=== PATIENT | male | born 1960 | race African-American/Black ===

== ENCOUNTER 2016-03-24 12:07 | Inpatient (IN) | payer OTHER ==
[2016-03-24 13:28] VITALS: BMI 33.0
--- NOTE | 2016-03-24 16:41 | HP ---
CIWA Score - CIWA Score Nausea/Vomitin-Mild Nausea/No Vomiting Muscle Tremors: 5 Anxiety: 4-Mod. Anxious/Guarded Agitation: 4-Moderately Restless Paroxysmal Sweats: 2 Orientation: 0-Oriented Tacttile Disturbances: 3-Moderate Itch/Numb/Burn Auditory Disturbances: 0-None Visual Disturbances: 0-None Headache: 3-Moderate CIWA-Ar Total Score: 22 Admission ROS BHS - HPI Chief Complaint: WITHDRAWAL SX Allergies/Adverse Reactions: Allergies Allergy/AdvReac Type Severity Reaction Status Date / Time No Known Allergies Allergy Verified 03/24/16 15:12 History of Present Illness: 55 YEARS OLD MALE WITH LONG HISTORY OF ALCOHOL DEPENDENCE, HAS HYPERTENSION, HYPERCHOLESTEROLEMIA, AVERAGE 4 CHEST PER YEAR SINCE 2004, ASTHMA AND COPD AND DEPRESSION, LONGEST SOBRIETY 27 MONTHS, IS ADMITTED TO DETOX Exam Limitations: No Limitations - Ebola screening Have you traveled outside of the country in the last 21 days: No Have you had contact with anyone from an Ebola affected area: No Have you been sick,other than usual withdrawal symptoms: No Do you have a fever: No - Review of Systems Constitutional: Chills, Changes in sleep, Weight Stable EENT: reports: No Symptoms Reported Respiratory: reports: SOB with Exertion, Productive cough Cardiac: reports: Chest Pain (AVERAGE 4 PER YEAR) GI: reports: Diarrhea, Nausea, Poor Fluid Intake, Indigestion, Abdominal cramping : reports: No Symptoms Reported Musculoskeletal: reports: Back Pain, Joint Pain, Muscle Pain, Neck Pain Integumentary: reports: No Symptoms Reported Neuro: reports: Weakness Endocrine: reports: No Symptoms Reported Hematology: reports: No Symptoms Reported Psychiatric: reports: Judgement Intact, Orientated x3, Depressed Other Systems: Reviewed and Negative Patient History - Patient Medical History Hx Anemia: No Hx Asthma: Yes Hx Chronic Obstructive Pulmonary Disease (COPD): Yes Hx Cancer: No Hx Cardiac Disorders: Yes (CAD with cardiac cath in 2015) Hx Congestive Heart Failure: Yes (arterial blockage) Hx Hypertension: Yes Hx Hypercholesterolemia: Yes Hx Pacemaker: No HX Cerebrovascular Accident: No Hx Seizures: No Hx Dementia: No Hx Diabetes: No Hx Gastrointestinal Disorders: No Hx Liver Disease: No Hx Genitourinary Disorders: No Hx Sexually Transmitted Disorders: No Hx Renal Disease (ESRD): No Hx Thyroid Disease: Yes (not taking meds) Hx Human Immunodeficiency Virus (HIV): No (LAST 02/10/15 NEGATIVE) Hx Hepatitis C: No Hx Depression: Yes Hx Suicide Attempt: No Hx Bipolar Disorder: No Hx Schizophrenia: No - Patient Surgical History Past Surgical History: Yes Hx Cardiac Surgery: Yes (cardiac cath in 2014) Hx Orthopedic Surgery: Yes (left TIBIA fx) Anesthesia Reaction: No - PPD History Previous Implant?: Yes Documented Results: Negative w/o proof Implanted On Prior R Admission?: Yes Date: 02/24/15 Results: 0 mm PPD to be Administered?: Yes - Smoking Cessation Smoking history: Former smoker Have you smoked in the past 12 months: No If you are a former smoker, when did you quit?: 2010 Hx Chewing Tobacco Use: No Initiated information on smoking cessation: No - Substance & Tx. History Hx Alcohol Use: Yes Hx Substance Use: Yes Substance Use Type: Alcohol, Cocaine Hx Substance Use Treatment: Yes - Substances Abused Alcohol Route: Oral Frequency: Daily Amount used: FIFTH OF VODKA Age of first use: 14 Date of Last Use: 03/24/16 Cocaine Route: Inhalation Frequency: 1-2 times per week Amount used: $40-50 Age of first use: 29 Date of Last Use: 03/22/16 Family Disease History - Family Disease History Family Disease History: Other: Father (,ALCOHOL), Mother (, ALCOHOL), Brother (deacesed,ALCOHOL) Admission Physical Exam S - Vital Signs Vital Signs: Vital Signs - 24 hr 03/24/16 13:24 Temperature 97.5 F L Pulse Rate 89 Respiratory 18 Rate Blood Pressure 158/105 - Physical General Appearance: Yes: Nourished, Appropriately Dressed, Moderate Distress, Tremorous, Irritable, Sweating, Anxious HEENTM: Yes: Hearing grossly Normal, Normal ENT Inspection, Normocephalic, Normal Voice Respiratory: Yes: Chest Non-Tender, Labored Respiration, No Respiratory Distress , No Accessory Muscle Use, Rhonchi, Wheezing, Hyperresonant Neck: Yes: Supple, Trachea in good position Breast: Yes: Breasts Symetrical Cardiology: Yes: Regular Rhythm, Regular Rate, S1, S2 Abdominal: Yes: Non Tender, Soft Genitourinary: Yes: Within Normal Limits Back: Yes: Normal Inspection Musculoskeletal: Yes: full range of Motion, Gait Steady, Back pain Extremities: Yes: Normal Inspection, Normal Range of Motion, Non-Tender, Tremors Neurological: Yes: Fully Oriented, Alert, Motor Strength 5/5, Normal Response, Depressed Affect Integumentary: Yes: Warm, Clammy Lymphatic: Yes: Within Normal Limits - Diagnostic (1) Alcohol dependence with uncomplicated withdrawal Current Visit: Yes Status: Acute (2) Asthma Current Visit: Yes Status: Acute Qualifiers: Asthma severity: mild persistent Asthma complication type: with status asthmaticus Qualified Code(s): J45.32 - Mild persistent asthma with status asthmaticus (3) COPD (chronic obstructive pulmonary disease) with emphysema Current Visit: Yes Status: Acute Qualifiers: Emphysema type: unspecified Qualified Code(s): J43.9 - Emphysema, unspecified (4) Hypercholesteremia Current Visit: Yes Status: Acute (5) Hypertension Current Visit: Yes Status: Acute Qualifiers: Hypertension type: essential hypertension Qualified Code(s): I10 - Essential (primary) hypertension (6) Depression (emotion) Current Visit: Yes Status: Suspected Qualifiers: Depression Type: dysthymia Qualified Code(s): F34.1 - Dysthymic disorder (7) H/O heart artery stent Current Visit: Yes Status: Resolved Comment: CHRONIC CHEST PAIN AVERAGE 4/YEAR Cleared for Admission [facility] - Detox or Rehab [facility] Level of Care: Medically Managed Detox Regimen/Protocol: Librium S Breath Alcohol Content Breath Alcohol Content: 0 Urine Drug Screen - Results Drug Screen Negative: No Urine Drug Screen Results: SUMAN-Cocaine, BZO-Benzodiazepines
[2016-03-24] MEDS ORDERED: ACETAMINOPHEN 325 MG TABLET (FP) PO PRN (16:47)
[2016-03-24] MEDS ORDERED: P-EPHED 60MG/TRIPROLIDI 2.5MG TABLET PO PRN (16:47)
[2016-03-24] MEDS ORDERED: LOPERAMIDE HCL 2 MG CAPSULE PO PRN (16:47)
[2016-03-24] MEDS ORDERED: diphenhydrAMINE HCL 50 MG CAPSULE PO PRN (16:47)
[2016-03-24] MEDS ORDERED: MENTHOL/PHENOL 1 EACH UD MM PRN (16:47)
[2016-03-24] MEDS ORDERED: MAG HYDROX/AL HYDROX/SIMETH 30 ML UNIT-DOSE CUP PO PRN (16:47)
[2016-03-24] MEDS ORDERED: MAGNESIUM HYDROX 2400MG/30ML ORAL SUSPENSION 30 ML CUP PO PRN (16:47)
[2016-03-24] MEDS ORDERED: chlordiazePOXIDE HCL 25 MG CAPSULE PO PRN (16:47)
[2016-03-24] MEDS ORDERED: MAGNESIUM CITRATE 300 ML BOTTLE PO PRN (16:47)
[2016-03-24] MEDS ORDERED: hydrOXYzine PAMOATE 50 MG CAPSULE (FP) PO PRN (16:47)
[2016-03-24] MEDS ORDERED: ALBUTEROL SO4 6.7 GM HFA INHALER IH PRN (16:52)
[2016-03-24] MEDS ORDERED: NITROGLYCERIN SUBLINGUAL 1/150 0.4 MG TAB SL PRN (16:57)
[2016-03-24] MEDS ORDERED: chlordiazePOXIDE HCL 25 MG CAPSULE PO ONE (17:30)
[2016-03-24] MEDS: predniSONE 20 MG TABLET (UD) PO SCH (17:56)
[2016-03-24] MEDS ORDERED: LISINOPRIL 20 MG TABLET (FP) PO ONE (19:46)
[2016-03-24] MEDS ORDERED: cloNIDine HCL 0.1 MG TABLET PO PRN (19:47)
[2016-03-24] MEDS ORDERED: cloNIDine HCL 0.1 MG TABLET ONE (19:49)
[2016-03-24 20:14] LABS: URINE APPEARANCE CLEAR; URINE BILIRUBIN NEGATIVE (NEGATIVE); URINE BLOOD NEGATIVE (NEGATIVE); URINE COLOR LTYELLOW; URINE GLUCOSE (UA) NEGATIVE (NEGATIVE); URINE KETONE NEGATIVE (NEGATIVE); URINE LEUK ESTERASE NEGATIVE (NEGATIVE); URINE NITRITE NEGATIVE (NEGATIVE); URINE PROTEIN NEGATIVE (NEGATIVE); URINE UROBILINOGEN NEGATIVE E.U./dl (0.2-1.0)
[2016-03-24] MEDS: THIAMINE HCL 100 MG TABLET (FP) PO SCH (22:21)
[2016-03-24] MEDS: BUDESONIDE/FORMETEROL FUMARATE 80/4.5 mcg INHALER IH SCH (22:21)
[2016-03-24] MEDS: chlordiazePOXIDE HCL 25 MG CAPSULE PO SCH (22:21)
[2016-03-24] MEDS: ATORVASTATIN CA 10 MG TABLET (FP) PO SCH (22:21)
[2016-03-24] MEDS: guaiFENesin/D-METHORPHAN HB 10 ML UNIT-DOSE CUPS PO PRN (22:24)
[2016-03-25] MEDS: chlordiazePOXIDE HCL 25 MG CAPSULE PO SCH ×4 (05:06→22:18)
[2016-03-25] MEDS: LISINOPRIL 20 MG TABLET (FP) PO SCH (10:27)
[2016-03-25] MEDS: amLODIPine BESYLATE 10 MG TABLET (FP) PO SCH (10:27)
[2016-03-25] MEDS: PRENATAL VITAMINS W/ FOLIC ACID TABLET (FP) PO SCH (10:27)
[2016-03-25] MEDS: ASPIRIN 81 MG CHEWABLE TABLETS PO SCH (10:27)
[2016-03-25] MEDS: BUDESONIDE/FORMETEROL FUMARATE 80/4.5 mcg INHALER IH SCH ×2 (10:28→22:20)
[2016-03-25] MEDS: predniSONE 20 MG TABLET (UD) PO SCH (10:28)
--- NOTE | 2016-03-25 10:37 | CONSULT ---
[facility] Psychiatric Consult - Data Date of interview: 03/25/16 Admission source: [facility] Identifying data: Readmission to [facility] for this 55 y/o AA male seeking detox treatment on for alcohol and cocaine dependence.Patient is single, a father of three,domiciled,unemployed and supported on SSI benefits. Substance Abuse History: - Smoking Cessation. Smoking history: Former smoker. Have you smoked in the past 12 months: No. Hx Chewing Tobacco Use: No. Initiated information on smoking cessation: No. - Substance & Tx. History. Hx Alcohol Use: Yes. Hx Substance Use: Yes. Substance Use Type: Alcohol, Cocaine. Hx Substance Use Treatment: Yes (01/01 [facility]). - Substances Abused. Alcohol. Route: Oral. Frequency: Daily. Amount used: 3PINTS OF VODKA/3 OF 12 0ZS OF BEER. Age of first use: 14. Date of Last Use: 02/21/15. Cocaine. Route: Inhalation. Frequency: 1-2 times per week. Amount used: 40$. Age of first use: 28. Date of Last Use: 02/20/15 Medical History: Significant for a history of HTN,bronchial asthma/COPD, hyperlipidemia,CAD/angioplasty with stent and thyroid disease. (not on medications). Psychiatric History: Diagnosed with MDD since 2002 ( of ).Used to be on seroquel and trazodone.Mr Heath reports previous trials with fluoxetine, bupropion and mirtazapine.He indicates that,for the time being,he is under the care of Dr Anderson at the [facility] in the [place].Maintained only on remeron (self-report).Patient denies history of suicide attempts. Physical/Sexual Abuse/Trauma History: No reported history of suicide attempts. Additional Comment: Urine Drug Screen Results: SUMAN-Cocaine, BZO- Benzodiazepines.Noted. Mental Status Exam - Mental Status Exam Alert and Oriented to: Time, Place, Person Cognitive Function: Good Patient Appearance: Well Groomed Mood: Withdrawn, Hopeful, Euthymic Affect: Appropriate, Normal Range Patient Behavior: Fatigued, Appropriate, Cooperative Speech Pattern: Clear Voice Loudness: Normal Thought Process: Goal Oriented Thought Disorder: Not Present Hallucinations: Denies Suicidal Ideation: Denies Homicidal Ideation: Denies Insight/Judgement: Poor Sleep: Fair Appetite: Good Muscle strength/Tone: Normal Gait/Station: Normal Psychiatric Findings - Problem List ([place] 1, 2,3) (1) Alcohol dependence with uncomplicated withdrawal Current Visit: Yes Status: Acute (2) Cocaine dependence Current Visit: Yes Status: Acute (3) MDD (major depressive disorder) Current Visit: Yes Status: Chronic Qualifiers: Major depression recurrence: recurrent Active/Remission status: in remission of unspecified degree Qualified Code(s): F33.40 - Major depressive disorder, recurrent, in remission, unspecified Comment: History. (4) Asthma Current Visit: Yes Status: Chronic Qualifiers: Asthma severity: mild persistent Asthma complication type: with status asthmaticus Qualified Code(s): J45.32 - Mild persistent asthma with status asthmaticus (5) COPD (chronic obstructive pulmonary disease) with emphysema Current Visit: Yes Status: Chronic Qualifiers: Emphysema type: unspecified Qualified Code(s): J43.9 - Emphysema, unspecified (6) Hypertension Current Visit: Yes Status: Chronic Qualifiers: Hypertension type: essential hypertension (7) Hypercholesteremia Current Visit: Yes Status: Chronic (8) H/O heart artery stent Current Visit: Yes Status: Resolved Comment: CHRONIC CHEST PAIN AVERAGE 4/YEAR (9) CAD (coronary artery disease) Current Visit: No Status: Chronic Qualifiers: Coronary Disease-Associated Artery/Lesion type: unspecified vessel or lesion type [place] vs. transplanted heart: [place] heart Associated angina: without angina Qualified Code(s): I25.10 - Atherosclerotic heart disease of [place] coronary artery without angina pectoris - Initial Treatment Plan Initial Treatment Plan: Psychoeducation.Detoxification.Remeron 7.5 mg po hs.Side effects/benefits discussed with patient.Patient agrees with careplan.Observation.
[2016-03-25 10:47] LABS: ALBUMIN 3.5 g/dl (3.4-5.0); ALK PHOS 141 U/L (45-117); ANION GAP 11 (8-16); BILIRUBIN,TOTAL 0.7 mg/dL (0.2-1.0); CALCIUM 8.4 mg/dL (8.5-10.1); CO2 23 mmol/L (21-32); CREATININE 1.2 mg/dL (0.7-1.3); GLUCOSE,RANDOM 124 mg/dL (74-106); SGOT/AST 19 U/L (15-37); SGPT/ALT 30 U/L (12-78); THYROID STIMULATING HORMONE 0.37 uIU/ml (0.358-3.74)
[2016-03-25] MEDS: ISOSORBIDE MONONITRATE 60 MG TAB.SR.24H (FP) PO SCH (11:00)
[2016-03-25 11:02] LABS: MCH 27.8 pg (25.7-33.7); MCHC 32.4 g/dl (32.0-35.9); MEAN CELL VOLUME 85.9 fl (80-96); PLATELET COUNT 361 K/MM3 (134-434); RDW 14.9 % (11.9-15.9); WHITE BLOOD COUNT 16.1 K/mm3 (4.0-10.0)
--- NOTE | 2016-03-25 11:04 | PN ---
BHS CIWA - CIWA Score Nausea/Vomitin-No Nausea/No Vomiting Muscle Tremors: 4-Moderate,w/Arms Extend Anxiety: 3 Agitation: 4-Moderately Restless Paroxysmal Sweats: 3 Orientation: 0-Oriented Tacttile Disturbances: 2-Mild Itch/Numbness/Burn Auditory Disturbances: 0-None Visual Disturbances: 0-None Headache: 0-None Present CIWA-Ar Total Score: 16 BHS Progress Note (SOAP) Subjective: itchiness all over my skin but no rash sweats shakes interrupted sleep Objective: 03/25/16 11:02 Vital Signs Temperature 95.9 F L 03/25/16 10:06 Pulse Rate 86 03/25/16 10:06 Respiratory Rate 20 03/25/16 10:06 Blood Pressure 158/97 03/25/16 10:07 O2 Sat by Pulse Oximetry (%) Laboratory Tests 03/24/16 03/25/16 19:53 06:00 Sodium 143 Potassium 3.8 Chloride 109 H Carbon Dioxide 23 Anion Gap 11 BUN 17 D Creatinine 1.2 D Creat Clearance w eGFR > 60 Random Glucose 124 H D Calcium 8.4 L Total Bilirubin 0.7 D AST 19 ALT 30 D Alkaline Phosphatase 141 H D Total Protein 7.0 Albumin 3.5 TSH 0.37 Urine Color Ltyellow Urine Appearance Clear Urine pH 6.0 Ur Specific [place] 1.021 Urine Protein Negative Urine Glucose (UA) Negative Urine Ketones Negative Urine Blood Negative Urine Nitrite Negative Urine Bilirubin Negative Urine Urobilinogen Negative Ur Leukocyte Esterase Negative labs pending awake/alert ambulating no acute distress Assessment: 03/25/16 11:03 withdrawal sx Plan: continue detox increase fluids Benadryl 25mg prn for itchiness labs pending
[2016-03-25] MEDS: diphenhydrAMINE HCL 25 MG CAPSULE (FP) PO PRN ×2 (12:30→22:24)
[2016-03-25] MEDS: ATORVASTATIN CA 10 MG TABLET (FP) PO SCH (22:18)
[2016-03-25] MEDS: MIRTAZAPINE 15 MG TABLET (FP) PO SCH (22:20)
[2016-03-25] MEDS: THIAMINE HCL 100 MG TABLET (FP) PO SCH (22:20)
[2016-03-26] MEDS: chlordiazePOXIDE HCL 25 MG CAPSULE PO SCH ×3 (05:19→17:38)
--- NOTE | 2016-03-26 09:40 | PN ---
S CIWA - CIWA Score Nausea/Vomitin Muscle Tremors: 3 Anxiety: 3 Agitation: 3 Paroxysmal Sweats: 1-Minimal Palms Moist Orientation: 0-Oriented Tacttile Disturbances: 1-Very Mild Itch/Numbness Auditory Disturbances: 1-Very Mild Visual Disturbances: 1-Very Mild Sensitivity Headache: 2-Mild CIWA-Ar Total Score: 18 BHS Progress Note (SOAP) Subjective: ALERT,IRRITABLE,ANXIOUS,INTERRUPTED SLEEP,TREMOR,PAIN IN THE BODY Objective: 03/26/16 09:36 Vital Signs Temperature 98.2 F 03/26/16 09:30 Pulse Rate 99 H 03/26/16 09:30 Respiratory Rate 18 03/26/16 09:30 Blood Pressure 140/92 03/26/16 09:30 O2 Sat by Pulse Oximetry (%) EKG NSR LVH PROLONG QT NO CHEST PAIN,NO SOB Laboratory Last Values WBC 16.1 K/mm3 (4.0-10.0) H D 03/25/16 06:00 RBC 4.97 M/mm3 (4.00-5.60) 03/25/16 06:00 Hgb 13.8 GM/dL (11.7-16.9) 03/25/16 06:00 Hct 42.7 % (35.4-49) 03/25/16 06:00 MCV 85.9 fl (80-96) 03/25/16 06:00 MCHC 32.4 g/dl (32.0-35.9) 03/25/16 06:00 RDW 14.9 % (11.9-15.9) 03/25/16 06:00 Plt Count 361 K/MM3 (134-434) D 03/25/16 06:00 MPV 9.0 fl (7.5-11.1) 03/25/16 06:00 Sodium 143 mmol/L (136-145) 03/25/16 06:00 Potassium 3.8 mmol/L (3.5-5.1) 03/25/16 06:00 Chloride 109 mmol/L (98-107) H 03/25/16 06:00 Carbon Dioxide 23 mmol/L (21-32) 03/25/16 06:00 Anion Gap 11 (8-16) 03/25/16 06:00 BUN 17 mg/dL (7-18) D 03/25/16 06:00 Creatinine 1.2 mg/dL (0.7-1.3) D 03/25/16 06:00 Creat Clearance w eGFR > 60 (>60) 03/25/16 06:00 Random Glucose 124 mg/dL (74-106) H D 03/25/16 06:00 Calcium 8.4 mg/dL (8.5-10.1) L 03/25/16 06:00 Total Bilirubin 0.7 mg/dL (0.2-1.0) D 03/25/16 06:00 AST 19 U/L (15-37) 03/25/16 06:00 ALT 30 U/L (12-78) D 03/25/16 06:00 Alkaline Phosphatase 141 U/L (45-117) H D 03/25/16 06:00 Total Protein 7.0 g/dl (6.4-8.2) 03/25/16 06:00 Albumin 3.5 g/dl (3.4-5.0) 03/25/16 06:00 TSH 0.37 uIU/ml (0.358-3.74) 03/25/16 06:00 Urine Color Ltyellow 03/24/16 19:53 Urine Appearance Clear 03/24/16 19:53 Urine pH 6.0 (5.0-8.0) 03/24/16 19:53 Ur Specific [place] 1.021 (1.001-1.035) 03/24/16 19:53 Urine Protein Negative (NEGATIVE) 03/24/16 19:53 Urine Glucose (UA) Negative (NEGATIVE) 03/24/16 19:53 Urine Ketones Negative (NEGATIVE) 03/24/16 19:53 Urine Blood Negative (NEGATIVE) 03/24/16 19:53 Urine Nitrite Negative (NEGATIVE) 03/24/16 19:53 Urine Bilirubin Negative (NEGATIVE) 03/24/16 19:53 Urine Urobilinogen Negative E.U./dl (0.2-1.0) 03/24/16 19:53 Ur Leukocyte Esterase Negative (NEGATIVE) 03/24/16 19:53 RPR Titer Nonreactive (NONREACTIVE) 03/25/16 06:00 Assessment: 03/26/16 09:40 WITHDRAWAL SYMPTOM Plan: CONTINUE DETOX REPEAT CBC,CMP TODAY,PENDING ON RESULT,ENCOURAGE ORAL FLUID
[2016-03-26] MEDS: amLODIPine BESYLATE 10 MG TABLET (FP) PO SCH (10:29)
[2016-03-26] MEDS: PRENATAL VITAMINS W/ FOLIC ACID TABLET (FP) PO SCH (10:29)
[2016-03-26] MEDS: predniSONE 20 MG TABLET (UD) PO SCH (10:29)
[2016-03-26] MEDS: LISINOPRIL 20 MG TABLET (FP) PO SCH (10:29)
[2016-03-26] MEDS: ASPIRIN 81 MG CHEWABLE TABLETS PO SCH (10:30)
[2016-03-26] MEDS: ISOSORBIDE MONONITRATE 60 MG TAB.SR.24H (FP) PO SCH (10:30)
[2016-03-26] MEDS: BUDESONIDE/FORMETEROL FUMARATE 80/4.5 mcg INHALER IH SCH ×2 (10:31→22:26)
[2016-03-26] MEDS: diphenhydrAMINE HCL 25 MG CAPSULE (FP) PO PRN (10:31)
--- NOTE | 2016-03-26 10:34 | EKG ---
Test Reason : Blood Pressure : / mmHG Vent. Rate : 085 BPM Atrial Rate : 085 BPM P-R Int : 128 ms QRS Dur : 100 ms QT Int : 422 ms P-R-T Axes : 055 -17 -05 degrees QTc Int : 502 ms NORMAL SINUS RHYTHM VOLTAGE CRITERIA FOR LEFT VENTRICULAR HYPERTROPHY PROLONGED QT ABNORMAL ECG WHEN COMPARED WITH ECG OF 27-JUN-2015 09:15, BORDERLINE CRITERIA FOR INFERIOR INFARCT ARE NO LONGER PRESENT Confirmed by LETICIA JACKSON, NIA ([id number]) on 03/26/2016 10:33:51 AM Referred By: Jairo Mccord Confirmed By:NIA KELLY MD
[2016-03-26 10:41] LABS: MCH 27.9 pg (25.7-33.7); MCHC 32.6 g/dl (32.0-35.9); MEAN CELL VOLUME 85.5 fl (80-96); MEAN PLT VOLUME 8.5 fl (7.5-11.1); PLATELET COUNT 324 K/MM3 (134-434); RDW 14.7 % (11.9-15.9); WHITE BLOOD COUNT 17.4 K/mm3 (4.0-10.0)
[2016-03-26 11:09] LABS: ALBUMIN 3.2 g/dl (3.4-5.0); ALK PHOS 111 U/L (45-117); ANION GAP 9 (8-16); BILIRUBIN,TOTAL 0.7 mg/dL (0.2-1.0); CALCIUM 8.4 mg/dL (8.5-10.1); CO2 24 mmol/L (21-32); GLUCOSE,RANDOM 117 mg/dL (74-106); SGOT/AST 11 U/L (15-37); SGPT/ALT 27 U/L (12-78); TOT PROT 6.2 g/dl (6.4-8.2)
[2016-03-26] MEDS: ATORVASTATIN CA 10 MG TABLET (FP) PO SCH (22:27)
[2016-03-26] MEDS: MIRTAZAPINE 15 MG TABLET (FP) PO SCH (22:27)
[2016-03-26] MEDS: THIAMINE HCL 100 MG TABLET (FP) PO SCH (22:28)
[2016-03-26] MEDS: ZOLPIDEM TARTRATE 5 MG TABLET PO PRN (22:32)
[2016-03-26] MEDS: guaiFENesin/D-METHORPHAN HB 10 ML UNIT-DOSE CUPS PO PRN (22:53)
[2016-03-26] MEDS: chlordiazePOXIDE 5 MG CAPSULE PO SCH (22:57)
[2016-03-27] MEDS: ALBUTEROL SO4 2.5/IPRATROPIUM 0.5 INH SOL 3 ML VIAL.NEB. NEB PRN ×2 (03:48→22:49)
[2016-03-27] MEDS: chlordiazePOXIDE 5 MG CAPSULE PO SCH ×3 (07:04→17:38)
[2016-03-27] MEDS: BUDESONIDE/FORMETEROL FUMARATE 80/4.5 mcg INHALER IH SCH ×2 (10:00→22:24)
[2016-03-27] MEDS: PRENATAL VITAMINS W/ FOLIC ACID TABLET (FP) PO SCH (10:23)
[2016-03-27] MEDS: ASPIRIN 81 MG CHEWABLE TABLETS PO SCH (10:23)
[2016-03-27] MEDS: ISOSORBIDE MONONITRATE 60 MG TAB.SR.24H (FP) PO SCH (10:23)
[2016-03-27] MEDS: amLODIPine BESYLATE 10 MG TABLET (FP) PO SCH (10:23)
[2016-03-27] MEDS: LISINOPRIL 20 MG TABLET (FP) PO SCH (10:23)
[2016-03-27] MEDS: diphenhydrAMINE HCL 25 MG CAPSULE (FP) PO PRN ×2 (10:24→22:27)
[2016-03-27] MEDS: predniSONE 20 MG TABLET (UD) PO SCH (10:25)
--- NOTE | 2016-03-27 10:53 | PN ---
S Progress Note (SOAP) Subjective: ALERT,COUGHING,SORE THROAT,YELLOWISH MUCOUS,INTERRUPTED SLEEP Objective: 03/27/16 10:57 03/27/16 10:58 Vital Signs Temperature 97.5 F L 03/27/16 10:08 Pulse Rate 91 H 03/27/16 10:08 Respiratory Rate 20 03/27/16 10:08 Blood Pressure 148/99 03/27/16 10:08 O2 Sat by Pulse Oximetry (%) 03/27/16 10:58 Laboratory Last Values WBC 17.4 K/mm3 (4.0-10.0) H 03/26/16 07:30 RBC 4.57 M/mm3 (4.00-5.60) 03/26/16 07:30 Hgb 12.7 GM/dL (11.7-16.9) 03/26/16 07:30 Hct 39.1 % (35.4-49) 03/26/16 07:30 MCV 85.5 fl (80-96) 03/26/16 07:30 MCHC 32.6 g/dl (32.0-35.9) 03/26/16 07:30 RDW 14.7 % (11.9-15.9) 03/26/16 07:30 Plt Count 324 K/MM3 (134-434) 03/26/16 07:30 MPV 8.5 fl (7.5-11.1) 03/26/16 07:30 Sodium 143 mmol/L (136-145) 03/26/16 07:30 Potassium 3.6 mmol/L (3.5-5.1) 03/26/16 07:30 Chloride 110 mmol/L (98-107) H 03/26/16 07:30 Carbon Dioxide 24 mmol/L (21-32) 03/26/16 07:30 Anion Gap 9 (8-16) 03/26/16 07:30 BUN 11 mg/dL (7-18) D 03/26/16 07:30 Creatinine 1.0 mg/dL (0.7-1.3) 03/26/16 07:30 Creat Clearance w eGFR > 60 (>60) 03/26/16 07:30 Random Glucose 117 mg/dL (74-106) H 03/26/16 07:30 Calcium 8.4 mg/dL (8.5-10.1) L 03/26/16 07:30 Total Bilirubin 0.7 mg/dL (0.2-1.0) 03/26/16 07:30 AST 11 U/L (15-37) L D 03/26/16 07:30 ALT 27 U/L (12-78) 03/26/16 07:30 Alkaline Phosphatase 111 U/L (45-117) D 03/26/16 07:30 Total Protein 6.2 g/dl (6.4-8.2) L 03/26/16 07:30 Albumin 3.2 g/dl (3.4-5.0) L 03/26/16 07:30 TSH 0.37 uIU/ml (0.358-3.74) 03/25/16 06:00 Urine Color Ltyellow 03/24/16 19:53 Urine Appearance Clear 03/24/16 19:53 Urine pH 6.0 (5.0-8.0) 03/24/16 19:53 Ur Specific [place] 1.021 (1.001-1.035) 03/24/16 19:53 Urine Protein Negative (NEGATIVE) 03/24/16 19:53 Urine Glucose (UA) Negative (NEGATIVE) 03/24/16 19:53 Urine Ketones Negative (NEGATIVE) 03/24/16 19:53 Urine Blood Negative (NEGATIVE) 03/24/16 19:53 Urine Nitrite Negative (NEGATIVE) 03/24/16 19:53 Urine Bilirubin Negative (NEGATIVE) 03/24/16 19:53 Urine Urobilinogen Negative E.U./dl (0.2-1.0) 03/24/16 19:53 Ur Leukocyte Esterase Negative (NEGATIVE) 03/24/16 19:53 RPR Titer Nonreactive (NONREACTIVE) 03/25/16 06:00 03/27/16 11:03 Assessment: 03/27/16 10:59 WITHDRAWAL SYMPTOM.BRONCHITIS,AMOXICILLIN 500 MGS PO Q TID FOR 10 DAYS FOR URI, BRONCHITIS, EXPLAINED TO PATIENT FOR BORDERLINE DM,PATIENT WILL GO TO HIS PMD FOR EVALUATION AND FOLLOW UP UPON DISCHARGE 03/27/16 11:03 LUNG CLEAR,NO WHEEZING Plan: CONTINUE DETOX,DISCHARGE IN AM,FOLLOW UP WITH AFTER CARE PROGRAM ARRANGEMENT AND PMD FOR MEDICAL PROBLEM
[2016-03-27] MEDS ORDERED: AMOXICILLIN 500 MG CAPSULE (FP) PO ONE (11:00)
[2016-03-27] MEDS: AMOXICILLIN 500 MG CAPSULE (FP) PO SCH ×2 (16:55→22:24)
[2016-03-27] MEDS: ZOLPIDEM TARTRATE 5 MG TABLET PO PRN (22:22)
[2016-03-27] MEDS: chlordiazePOXIDE HCL 10 MG CAPSULE PO SCH (22:22)
[2016-03-27] MEDS: THIAMINE HCL 100 MG TABLET (FP) PO SCH (22:22)
[2016-03-27] MEDS: MIRTAZAPINE 15 MG TABLET (FP) PO SCH (22:24)
[2016-03-27] MEDS: ATORVASTATIN CA 10 MG TABLET (FP) PO SCH (22:24)
[2016-03-28] MEDS: AMOXICILLIN 500 MG CAPSULE (FP) PO SCH (05:43)
[2016-03-28] MEDS: chlordiazePOXIDE HCL 10 MG CAPSULE PO SCH (05:43)
[2016-03-28 06:18] VITALS: BP 120/77; PULSE 88; TEMP 97.9
--- NOTE | 2016-05-17 20:39 | DS ---
[facility] Detox Discharge Summary Admission Date: 03/24/16 Discharge Date: 03/28/16 - History Present History: Alcohol Dependence Additional Comments: follow up with after care program as arrangement to see pmd for medical problem, continue all medications Pertinent Past History: asthma copd htn hypercholesterolemia depression cad s/p angioplasty with stent - Physical Exam Results Vital Signs: Vital Signs Temperature 97.9 F 03/28/16 06:00 Pulse Rate 88 03/28/16 06:00 Respiratory Rate 20 03/28/16 06:00 Blood Pressure 120/77 03/28/16 06:00 O2 Sat by Pulse Oximetry (%) Pertinent Admission Physical Exam Findings: withdrawal symptom - Treatment Hospital Course: Detox Protocol Followed, Detoxed Safely, Responded well, Discharged Condition Good Patient has Accepted a Rehab Referral to: declined - Medication Discharge Medications: Ambulatory Orders Simvastatin [Zocor -] 20 mg PO HS 07/31/13 Aspirin Coated [Ecotrin -] 81 mg PO DAILY tablet.ec 02/26/15 Tiotropium [place] [Spiriva] 1 inh PO DAILY #1 canister 02/26/15 Amlodipine Besylate [Norvasc -] 10 mg PO DAILY 06/24/15 Fluticasone/Salmeterol [Advair 250-50 Diskus] 1 each IH BID 06/24/15 Lisinopril [Prinivil] 20 mg PO DAILY 06/24/15 Nitroglycerin Sublingual [Nitrostat -] 0.4 mg SL PRN PRN 06/24/15 Mirtazapine [Remeron -] 15 mg PO HS #30 tablet 03/25/16 Amoxicillin - [Amoxicillin 500mg Capsule -] 500 mg PO TID #30 capsule 03/27/16 - Diagnosis (1) Alcohol dependence with uncomplicated withdrawal Status: Acute (2) Asthma Status: Chronic Qualifiers: Asthma severity: mild persistent Asthma complication type: with status asthmaticus Qualified Code(s): J45.32 - Mild persistent asthma with status asthmaticus (3) CAD (coronary artery disease) Status: Chronic Qualifiers: Coronary Disease-Associated Artery/Lesion type: unspecified vessel or lesion type [place] vs. transplanted heart: [place] heart Associated angina: without angina Qualified Code(s): I25.10 - Atherosclerotic heart disease of [place] coronary artery without angina pectoris (4) COPD (chronic obstructive pulmonary disease) with emphysema Status: Chronic Qualifiers: Emphysema type: unspecified Qualified Code(s): J43.9 - Emphysema, unspecified (5) Hypercholesteremia Status: Chronic (6) Hypertension Status: Chronic Qualifiers: Hypertension type: essential hypertension (7) MDD (major depressive disorder) Status: Chronic Qualifiers: Major depression recurrence: recurrent Active/Remission status: in remission of unspecified degree Qualified Code(s): F33.40 - Major depressive disorder, recurrent, in remission, unspecified - AMA Did Patient Leave Against Medical Advice: No
== END 2016-03-28 06:52 | disposition home or self-care (01) | DRG 774 ==
LOC: YASAS 12:07 → Y6N 15:40
PROVIDERS: ADMIT Internal Medicine Addiction Medicine; ATTEND Internal Medicine Addiction Medicine
PROC: HZ2ZZZZ Detoxification Services for Substance Abuse Treatment (ICD-10-PCS; principal; 2016-03-24)
DX: F10.230 Alcohol dependence with withdrawal, uncomplicated (principal); F14.20 Cocaine dependence, uncomplicated; F33.40 Major depressive disorder, recurrent, in remission, unspecified; J45.32 Mild persistent asthma with status asthmaticus; J43.9 Emphysema, unspecified; I10 Essential (primary) hypertension; E78.00 Pure hypercholesterolemia, unspecified; I25.10 Atherosclerotic heart disease of native coronary artery without angina pectoris; J40 Bronchitis, not specified as acute or chronic; Z95.5 Presence of coronary angioplasty implant and graft; Z87.891 Personal history of nicotine dependence
CPT/HCPCS: 36415; 80053; 81003; 84443; 85027; 86593; 93005; 93010; 94640

== ENCOUNTER 2016-11-07 12:46 | Inpatient (IN) | payer OTHER ==
[2016-11-07 13:33] VITALS: BMI 31.1
--- NOTE | 2016-11-07 14:48 | HP ---
CIWA Score - CIWA Score Nausea/Vomitin-No Nausea/No Vomiting Muscle Tremors: 4-Moderate,w/Arms Extend Anxiety: 3 Agitation: 4-Moderately Restless Paroxysmal Sweats: 3 Orientation: 0-Oriented Tacttile Disturbances: 0-None Auditory Disturbances: 0-None Visual Disturbances: 0-None Headache: 2-Mild CIWA-Ar Total Score: 16 Admission ROS BHS - HPI Chief Complaint: I am here to detox and need to stop feeling the need to drink. Allergies/Adverse Reactions: Allergies Allergy/AdvReac Type Severity Reaction Status Date / Time No Known Allergies Allergy Verified 03/24/16 15:12 History of Present Illness: Pt is a 55yr old male with a history of alcohol and benzodiazapine dependence seeking detox for treatment. Exam Limitations: No Limitations - Ebola screening Have you traveled outside of the country in the last 21 days: No Have you had contact with anyone from an Ebola affected area: No Have you been sick,other than usual withdrawal symptoms: No Do you have a fever: No - Review of Systems Constitutional: Chills, Diaphoresis, Loss of Appetite, Night Sweats, Changes in sleep EENT: reports: Tearing, Nose Congestion Respiratory: reports: Cough Cardiac: reports: No Symptoms Reported GI: reports: Diarrhea, Poor Fluid Intake : reports: No Symptoms Reported Musculoskeletal: reports: Back Pain Integumentary: reports: Flushing, Sweating Neuro: reports: Headache, Tingling, Tremors Endocrine: reports: Excessive Sweating, Flushing, Intolerance to Cold, Intolerance to Heat Hematology: reports: No Symptoms Reported Psychiatric: reports: No Sypmtoms Reported, Judgement Intact, Mood/Affect Appropiate, Orientated x3, Agitated, Anxious Other Systems: Reviewed and Negative Patient History - Patient Medical History Hx Anemia: No Hx Asthma: Yes Hx Chronic Obstructive Pulmonary Disease (COPD): Yes Hx Cancer: No Hx Cardiac Disorders: Yes (CAD with cardiac cath in 09/2016/ stents placed.) Hx Congestive Heart Failure: Yes (arterial blockage) Hx Hypertension: Yes Hx Hypercholesterolemia: Yes Hx Pacemaker: No HX Cerebrovascular Accident: No Hx Seizures: No Hx Dementia: No Hx Diabetes: No Hx Gastrointestinal Disorders: No Hx Liver Disease: No Hx Genitourinary Disorders: No Hx Sexually Transmitted Disorders: No Hx Renal Disease (ESRD): No Hx Thyroid Disease: Yes (not taking meds) Hx Human Immunodeficiency Virus (HIV): No (negative) Hx Hepatitis C: No (negative) Hx Depression: Yes Hx Suicide Attempt: No Hx Bipolar Disorder: No Hx Schizophrenia: No Other Medical History: insomnia/anxiety - Patient Surgical History Past Surgical History: Yes Hx Cardiac Surgery: Yes (cardiac cath in 2017 stents placed) Hx Orthopedic Surgery: Yes (left TIBIA fx) Anesthesia Reaction: No - PPD History Previous Implant?: No Documented Results: Negative w/proof Date: 03/26/16 Results: 0 mm PPD to be Administered?: No - Reproductive History Patient is a Female of Child Bearing Age (11 -55 yrs old): No - Smoking Cessation Smoking history: Former smoker Have you smoked in the past 12 months: No If you are a former smoker, when did you quit?: 2010 Hx Chewing Tobacco Use: No Initiated information on smoking cessation: No - Substance & Tx. History Hx Alcohol Use: Yes Hx Substance Use: Yes Substance Use Type: Alcohol, Tranquilizers Hx Substance Use Treatment: Yes - Substances Abused Alcohol Route: Oral Frequency: Daily Amount used: four fifth vodka Age of first use: 29 Date of Last Use: 11/06/16 Benzodiazepine (Klonopin) Route: Oral Frequency: 1-2 times per week Amount used: 2mg Age of first use: 54 Date of Last Use: 11/04/16 Cocaine Route: Smoking Frequency: 1-2 times per week Amount used: $50 Age of first use: 20 Date of Last Use: 11/06/16 Family Disease History - Family Disease History Family Disease History: Other: Father (,ALCOHOL), Mother (, ALCOHOL), Brother (deacesed,ALCOHOL) Admission Physical Exam [facility] - Vital Signs Vital Signs: Vital Signs - 24 hr 11/07/16 13:26 Temperature 96.9 F L Pulse Rate 74 Respiratory 18 Rate Blood Pressure 145/98 - Physical General Appearance: Yes: Appropriately Dressed, Moderate Distress, Tremorous, Irritable, Sweating, Anxious HEENTM: Yes: Hearing grossly Normal, Normal Voice Respiratory: Yes: Lungs Clear, Normal Breath Sounds, No Respiratory Distress Neck: Yes: No masses,lesions,Nodules Breast: Yes: Within Normal Limits Cardiology: Yes: Regular Rhythm, Regular Rate, S1, S2 Abdominal: Yes: Normal Bowel Sounds, Non Tender, Soft Genitourinary: Yes: Within Normal Limits Back: Yes: Normal Inspection Musculoskeletal: Yes: Gait Steady, Back pain Extremities: Yes: Normal Capillary Refill, Normal Inspection, Non-Tender, Tremors Neurological: Yes: Fully Oriented, Alert, Normal Response Integumentary: Yes: Normal Color, Diaphoresis Lymphatic: Yes: Within Normal Limits - Diagnostic (1) Alcohol dependence with uncomplicated withdrawal Current Visit: Yes Status: Chronic (2) Cocaine dependence Current Visit: Yes Status: Chronic Qualifiers: Substance use status: uncomplicated Qualified Code(s): F14.20 - Cocaine dependence, uncomplicated (3) Asthma Current Visit: Yes Status: Chronic Qualifiers: Asthma severity: mild persistent Asthma complication type: uncomplicated Qualified Code(s): J45.30 - Mild persistent asthma, uncomplicated (4) CAD (coronary artery disease) Current Visit: No Status: Chronic Qualifiers: Coronary Disease-Associated Artery/Lesion type: unspecified vessel or lesion type [place] vs. transplanted heart: [place] heart Associated angina: without angina Qualified Code(s): I25.10 - Atherosclerotic heart disease of [place] coronary artery without angina pectoris (5) COPD (chronic obstructive pulmonary disease) with emphysema Current Visit: Yes Status: Chronic Qualifiers: Emphysema type: unspecified Qualified Code(s): J43.9 - Emphysema, unspecified (6) Hypercholesteremia Current Visit: Yes Status: Chronic (7) Hypertension Current Visit: Yes Status: Chronic Qualifiers: Hypertension type: essential hypertension Cleared for Admission S - Detox or Rehab [facility] Level of Care: Medically Managed Detox Regimen/Protocol: Librium [facility] Breath Alcohol Content Breath Alcohol Content: 0 Urine Drug Screen - Results Drug Screen Negative: No Urine Drug Screen Results: SUMAN-Cocaine, BZO-Benzodiazepines
[2016-11-07] MEDS ORDERED: P-EPHED 60MG/TRIPROLIDI 2.5MG TABLET PO PRN (15:08)
[2016-11-07] MEDS ORDERED: MAG HYDROX/AL HYDROX/SIMETH 30 ML UNIT-DOSE CUP PO PRN (15:08)
[2016-11-07] MEDS ORDERED: MAGNESIUM CITRATE 300 ML BOTTLE PO PRN (15:08)
[2016-11-07] MEDS ORDERED: LOPERAMIDE HCL 2 MG CAPSULE PO PRN (15:08)
[2016-11-07] MEDS ORDERED: ACETAMINOPHEN 325 MG TABLET (FP) PO PRN (15:08)
[2016-11-07] MEDS ORDERED: diphenhydrAMINE HCL 50 MG CAPSULE PO PRN (15:08)
[2016-11-07] MEDS ORDERED: MENTHOL/PHENOL 1 EACH UD MM PRN (15:08)
[2016-11-07] MEDS ORDERED: hydrOXYzine PAMOATE 50 MG CAPSULE (FP) PO PRN (15:08)
[2016-11-07] MEDS ORDERED: chlordiazePOXIDE HCL 25 MG CAPSULE PO ONE (15:08)
[2016-11-07] MEDS ORDERED: chlordiazePOXIDE HCL 25 MG CAPSULE PO PRN (15:08)
[2016-11-07] MEDS ORDERED: MAGNESIUM HYDROX 2400MG/30ML ORAL SUSPENSION 30 ML CUP PO PRN (15:08)
[2016-11-07] MEDS ORDERED: guaiFENesin/D-METHORPHAN HB 10 ML UNIT-DOSE CUPS PO PRN (15:08)
[2016-11-07] MEDS ORDERED: NITROGLYCERIN SUBLINGUAL 1/150 0.4 MG TAB SL PRN (15:09)
[2016-11-07] MEDS: chlordiazePOXIDE HCL 25 MG CAPSULE PO SCH ×2 (18:25→22:17)
[2016-11-07] MEDS: IBUPROFEN 400 MG TABLET (FP) PO PRN (20:29)
[2016-11-07 21:14] LABS: URINE APPEARANCE CLEAR; URINE BILIRUBIN NEGATIVE (NEGATIVE); URINE BLOOD 1+ (NEGATIVE); URINE COLOR YELLOW; URINE GLUCOSE (UA) NEGATIVE (NEGATIVE); URINE KETONE NEGATIVE (NEGATIVE); URINE LEUK ESTERASE NEGATIVE (NEGATIVE); URINE NITRITE NEGATIVE (NEGATIVE); URINE PROTEIN NEGATIVE (NEGATIVE)
[2016-11-07 21:22] LABS: URINE MUCUS RARE; URINE RBC 1 /hpf (0-3); URINE WBC <1 /hpf (3-5)
[2016-11-07] MEDS: ATORVASTATIN CA 20 MG TABLET (FP) PO SCH (22:17)
[2016-11-07] MEDS: THIAMINE HCL 100 MG TABLET (FP) PO SCH (22:17)
[2016-11-08] MEDS: chlordiazePOXIDE HCL 25 MG CAPSULE PO SCH ×4 (05:24→22:27)
[2016-11-08 09:56] LABS: MCHC 31.3 g/dl (32.0-35.9); MEAN CELL VOLUME 89.5 fl (80-96); MEAN PLT VOLUME 9.4 fl (7.5-11.1); PLATELET COUNT 263 K/MM3 (134-434); RDW 14.8 % (11.9-15.9); WHITE BLOOD COUNT 11.5 K/mm3 (4.0-10.0)
[2016-11-08] MEDS ORDERED: TIOTROPIUM BROMIDE 18 MCG/INH (DEVICE W/ 5 CAPSULES) IH SCH (10:00)
--- NOTE | 2016-11-08 10:16 | PN ---
S CIWA - CIWA Score Nausea/Vomitin Muscle Tremors: 3 Anxiety: 3 Agitation: 3 Paroxysmal Sweats: 1-Minimal Palms Moist Orientation: 0-Oriented Tacttile Disturbances: 1-Very Mild Itch/Numbness Auditory Disturbances: 1-Very Mild Visual Disturbances: 1-Very Mild Sensitivity Headache: 2-Mild CIWA-Ar Total Score: 18 S Progress Note (SOAP) Subjective: ALERT,IRRITABLE,ANXIOUS,INTERRUPTED SLEEP,TREMOR Objective: 11/08/16 10:14 Vital Signs Temperature 97.7 F 11/08/16 09:25 Pulse Rate 81 11/08/16 09:25 Respiratory Rate 18 11/08/16 09:25 Blood Pressure 148/97 11/08/16 09:25 O2 Sat by Pulse Oximetry (%) EKG NSR,LVH,PROLONG QT Laboratory Last Values WBC 11.5 K/mm3 (4.0-10.0) H D 11/08/16 06:00 RBC 5.08 M/mm3 (4.00-5.60) 11/08/16 06:00 Hgb 14.2 GM/dL (11.7-16.9) D 11/08/16 06:00 Hct 45.4 % (35.4-49) D 11/08/16 06:00 MCV 89.5 fl (80-96) 11/08/16 06:00 MCH 28.0 pg (25.7-33.7) 11/08/16 06:00 MCHC 31.3 g/dl (32.0-35.9) L 11/08/16 06:00 RDW 14.8 % (11.9-15.9) 11/08/16 06:00 Plt Count 263 K/MM3 (134-434) 11/08/16 06:00 MPV 9.4 fl (7.5-11.1) D 11/08/16 06:00 Urine Color Yellow 11/07/16 20:00 Urine Appearance Clear 11/07/16 20:00 Urine pH 5.0 (5.0-8.0) 11/07/16 20:00 Ur Specific [place] 1.025 (1.005-1.025) 11/07/16 20:00 Urine Protein Negative (NEGATIVE) 11/07/16 20:00 Urine Glucose (UA) Negative (NEGATIVE) 11/07/16 20:00 Urine Ketones Negative (NEGATIVE) 11/07/16 20:00 Urine Blood 1+ (NEGATIVE) H 11/07/16 20:00 Urine Nitrite Negative (NEGATIVE) 11/07/16 20:00 Urine Bilirubin Negative (NEGATIVE) 11/07/16 20:00 Urine Urobilinogen 2.0 mg/dL (0.2-1.0) 11/07/16 20:00 Ur Leukocyte Esterase Negative (NEGATIVE) 11/07/16 20:00 Urine RBC 1 /hpf (0-3) 11/07/16 20:00 Urine WBC <1 /hpf (3-5) 11/07/16 20:00 Ur Epithelial Cells Rare /hpf (FEW) 11/07/16 20:00 Urine Mucus Rare 11/07/16 20:00 LABS PENDING Assessment: 11/08/16 10:15 WITHDRAWAL SYMPTOM Plan: CONTINUE DETOX,ENCOURAGE ORAL FLUID
[2016-11-08] MEDS: LISINOPRIL 20 MG TABLET (FP) PO SCH (10:22)
[2016-11-08] MEDS: PRENATAL VITAMINS W/ FOLIC ACID TABLET (FP) PO SCH (10:22)
[2016-11-08] MEDS: amLODIPine BESYLATE 5 MG TABLET (FP) PO SCH (10:22)
[2016-11-08] MEDS: ASPIRIN COATED 81 MG TABLET.EC PO SCH (10:23)
[2016-11-08 10:44] LABS: ALBUMIN 3.3 g/dl (3.4-5.0); ANION GAP 8 (8-16); BILIRUBIN,TOTAL 1.2 mg/dL (0.2-1.0); CALCIUM 8.7 mg/dL (8.5-10.1); CO2 25 mmol/L (21-32); CREATININE 1.3 mg/dL (0.7-1.3); GLUCOSE,RANDOM 154 mg/dL (74-106); SGOT/AST 12 U/L (15-37); SGPT/ALT 27 U/L (12-78); TOT PROT 6.5 g/dl (6.4-8.2)
[2016-11-08 10:48] LABS: ALK PHOS 118 U/L (45-117)
[2016-11-08 12:39] LABS: HIV 1 & 2 AB NEGATIVE; HIV 1 AGp24 NEGATIVE
--- NOTE | 2016-11-08 15:15 | CONSULT ---
[facility] Psychiatric Consult - Data Date of interview: 11/08/16 Admission source: [facility] Identifying data: One of multiple admissions to [facility] for this 55 y/o AA male seeking detox treatment on for alcohol and cocaine dependence.Patient is a ,a father of three,domiciled,retired from [employer] and supported on Pension benefits. Substance Abuse History: Confirmed by patient in this interview. Smoking Cessation. Smoking history: Former smoker. Have you smoked in the past 12 months: No. If you are a former smoker, when did you quit?: 2010. Hx Chewing Tobacco Use: No. Initiated information on smoking cessation: No. - Substance & Tx. History. Hx Alcohol Use: Yes. Hx Substance Use: Yes. Substance Use Type : Alcohol, Tranquilizers. Hx Substance Use Treatment: Yes. - Substances Abused. Alcohol. Route: Oral. Frequency: Daily. Amount used: four fifth vodka. Age of first use: 29. Date of Last Use: 11/06/16. Benzodiazepine ( Klonopin). Route: Oral. Frequency: 1-2 times per week. Amount used: 2mg. Age of first use: 54. Date of Last Use: 11/04/16. Cocaine. Route: Smoking. Frequency: 1-2 times per week. Amount used: $50. Age of first use: 20. Date of Last Use: 11/06/16 Medical History: Remarkable for hypertension,COPD,coronary artery disease/ angioplasty with stents,bronchial asthma,hyperlipidemia,congestive heart failure ,emphysema and thyroid disease (not on medications).Remote history of orthosurgery (fracture of left tibia). Psychiatric History: No reported history of psychiatric hospitalizations.Diagnosed with MDD in 2002 ( of ).Patient endorses a personal history of sub-optimal adherence to OPD care.He is currently maintained on a combination of remeron,klonopin and zolpidem.Mr Heath indicates that he is followed at a clinic located on [facility] in the [place].Patient denies history of suicide attempts. Physical/Sexual Abuse/Trauma History: No history of sexual abuse. Additional Comment: Urine Drug Screen Results: SUMAN-Cocaine, BZO- Benzodiazepines.Noted. Mental Status Exam - Mental Status Exam Alert and Oriented to: Time, Place, Person Cognitive Function: Good Patient Appearance: Well Groomed Mood: Hopeful, Euthymic Affect: Appropriate, Normal Range Patient Behavior: Appropriate, Cooperative Speech Pattern: Clear, Appropriate Voice Loudness: Normal Thought Process: Intact, Goal Oriented Thought Disorder: Not Present Hallucinations: Denies Suicidal Ideation: Denies Homicidal Ideation: Denies Insight/Judgement: Poor Sleep: Poorly, Difficulty falling asleep Appetite: Good Muscle strength/Tone: Normal Gait/Station: Normal Psychiatric Findings - Problem List ([place] 1, 2,3) (1) Alcohol dependence with uncomplicated withdrawal Current Visit: Yes Status: Acute (2) Cocaine dependence Current Visit: Yes Status: Acute Qualifiers: Substance use status: uncomplicated Qualified Code(s): F14.20 - Cocaine dependence, uncomplicated (3) Substance induced mood disorder Current Visit: Yes Status: Acute (4) Mood disorder Current Visit: Yes Status: Chronic (5) Asthma Current Visit: Yes Status: Chronic Qualifiers: Asthma severity: mild persistent Asthma complication type: uncomplicated Qualified Code(s): J45.30 - Mild persistent asthma, uncomplicated (6) Hypercholesteremia Current Visit: Yes Status: Chronic (7) Hypertension Current Visit: Yes Status: Chronic Qualifiers: Hypertension type: essential hypertension (8) CAD (coronary artery disease) Current Visit: No Status: Chronic Qualifiers: Coronary Disease-Associated Artery/Lesion type: unspecified vessel or lesion type [place] vs. transplanted heart: [place] heart Associated angina: without angina Qualified Code(s): I25.10 - Atherosclerotic heart disease of [place] coronary artery without angina pectoris (9) Insomnia Current Visit: Yes Status: Acute - Initial Treatment Plan Initial Treatment Plan: Psychoeducation.Detoxification.Medications : remeron 30 mg po hs + ambien 10 mg po hs prn.Side effects/benefits of both drugs are discussed with the patient.He is in agreement with this careplan.Medications verified with pharmacist at [facility] [phone] (scripts dated 10/04/16 for remeron 45 mg/hs for 30 days).Observation.
[2016-11-08] MEDS: MIRTAZAPINE 30 MG TABLET (FP) PO SCH (22:27)
[2016-11-08] MEDS: THIAMINE HCL 100 MG TABLET (FP) PO SCH (22:27)
[2016-11-08] MEDS: ATORVASTATIN CA 20 MG TABLET (FP) PO SCH (22:27)
[2016-11-08] MEDS: ACLIDINIUM BROMIDE 400 MCG/INH AERO.POWD IH SCH (22:28)
[2016-11-08] MEDS: ZOLPIDEM TARTRATE 5 MG TABLET PO PRN (22:29)
[2016-11-09] MEDS: chlordiazePOXIDE HCL 25 MG CAPSULE PO SCH ×2 (05:50→10:39)
[2016-11-09] MEDS: ASPIRIN COATED 81 MG TABLET.EC PO SCH (10:39)
[2016-11-09] MEDS: PRENATAL VITAMINS W/ FOLIC ACID TABLET (FP) PO SCH (10:39)
[2016-11-09] MEDS: amLODIPine BESYLATE 5 MG TABLET (FP) PO SCH (10:39)
[2016-11-09] MEDS: LISINOPRIL 20 MG TABLET (FP) PO SCH (10:39)
[2016-11-09] MEDS: ACLIDINIUM BROMIDE 400 MCG/INH AERO.POWD IH SCH ×2 (10:40→22:35)
--- NOTE | 2016-11-09 12:08 | PN ---
S CIWA - CIWA Score Nausea/Vomitin Muscle Tremors: 3 Anxiety: 3 Agitation: 2 Paroxysmal Sweats: 1-Minimal Palms Moist Orientation: 0-Oriented Tacttile Disturbances: 1-Very Mild Itch/Numbness Auditory Disturbances: 1-Very Mild Visual Disturbances: 1-Very Mild Sensitivity Headache: 2-Mild CIWA-Ar Total Score: 17 BHS Progress Note (SOAP) Subjective: ALERT,IRRITABLE,ANXIOUS,INTERRUPTED SLEEP,TREMOR,ITCHING Objective: 11/09/16 12:06 Vital Signs Temperature 98.2 F 11/09/16 09:51 Pulse Rate 85 11/09/16 09:51 Respiratory Rate 20 11/09/16 09:51 Blood Pressure 135/92 11/09/16 09:51 O2 Sat by Pulse Oximetry (%) 11/09/16 12:06 Laboratory Last Values WBC 11.5 K/mm3 (4.0-10.0) H D 11/08/16 06:00 RBC 5.08 M/mm3 (4.00-5.60) 11/08/16 06:00 Hgb 14.2 GM/dL (11.7-16.9) D 11/08/16 06:00 Hct 45.4 % (35.4-49) D 11/08/16 06:00 MCV 89.5 fl (80-96) 11/08/16 06:00 MCH 28.0 pg (25.7-33.7) 11/08/16 06:00 MCHC 31.3 g/dl (32.0-35.9) L 11/08/16 06:00 RDW 14.8 % (11.9-15.9) 11/08/16 06:00 Plt Count 263 K/MM3 (134-434) 11/08/16 06:00 MPV 9.4 fl (7.5-11.1) D 11/08/16 06:00 Sodium 141 mmol/L (136-145) 11/08/16 06:00 Potassium 4.0 mmol/L (3.5-5.1) 11/08/16 06:00 Chloride 108 mmol/L (98-107) H 11/08/16 06:00 Carbon Dioxide 25 mmol/L (21-32) 11/08/16 06:00 Anion Gap 8 (8-16) 11/08/16 06:00 BUN 17 mg/dL (7-18) D 11/08/16 06:00 Creatinine 1.3 mg/dL (0.7-1.3) D 11/08/16 06:00 Creat Clearance w eGFR 57.31 (>60) 11/08/16 06:00 Random Glucose 154 mg/dL (74-106) H D 11/08/16 06:00 Calcium 8.7 mg/dL (8.5-10.1) 11/08/16 06:00 Total Bilirubin 1.2 mg/dL (0.2-1.0) H D 11/08/16 06:00 AST 12 U/L (15-37) L 11/08/16 06:00 ALT 27 U/L (12-78) 11/08/16 06:00 Alkaline Phosphatase 118 U/L (45-117) H 11/08/16 06:00 Total Protein 6.5 g/dl (6.4-8.2) 11/08/16 06:00 Albumin 3.3 g/dl (3.4-5.0) L 11/08/16 06:00 Urine Color Yellow 11/07/16 20:00 Urine Appearance Clear 11/07/16 20:00 Urine pH 5.0 (5.0-8.0) 11/07/16 20:00 Ur Specific [place] 1.025 (1.005-1.025) 11/07/16 20:00 Urine Protein Negative (NEGATIVE) 11/07/16 20:00 Urine Glucose (UA) Negative (NEGATIVE) 11/07/16 20:00 Urine Ketones Negative (NEGATIVE) 11/07/16 20:00 Urine Blood 1+ (NEGATIVE) H 11/07/16 20:00 Urine Nitrite Negative (NEGATIVE) 11/07/16 20:00 Urine Bilirubin Negative (NEGATIVE) 11/07/16 20:00 Urine Urobilinogen 2.0 mg/dL (0.2-1.0) 11/07/16 20:00 Ur Leukocyte Esterase Negative (NEGATIVE) 11/07/16 20:00 Urine RBC 1 /hpf (0-3) 11/07/16 20:00 Urine WBC <1 /hpf (3-5) 11/07/16 20:00 Ur Epithelial Cells Rare /hpf (FEW) 11/07/16 20:00 Urine Mucus Rare 11/07/16 20:00 HIV 1&2 Antibody Screen Negative 11/07/16 06:00 HIV P24 Antigen Negative 11/07/16 06:00 Assessment: 11/09/16 12:07 WITHDRAWAL SYMPTOM Plan: CONTINUE DETOX,ENCOURAGE ORAL FLUID,BENADRYL 25 PNG PO Q 6 HRS PRN FOR ITCHING
[2016-11-09] MEDS: diphenhydrAMINE HCL 25 MG CAPSULE (FP) PO PRN (12:21)
--- NOTE | 2016-11-09 12:57 | EKG ---
Test Reason : Blood Pressure : / mmHG Vent. Rate : 078 BPM Atrial Rate : 078 BPM P-R Int : 142 ms QRS Dur : 096 ms QT Int : 448 ms P-R-T Axes : 062 -07 013 degrees QTc Int : 510 ms NORMAL SINUS RHYTHM WITH SINUS ARRHYTHMIA MINIMAL VOLTAGE CRITERIA FOR LVH, MAY BE NORMAL VARIANT PROLONGED QT ABNORMAL ECG WHEN COMPARED WITH ECG OF 07-NOV-2016 17:30, SINUS RHYTHM HAS REPLACED ECTOPIC ATRIAL RHYTHM NON-SPECIFIC CHANGE IN ST SEGMENT IN INFERIOR LEADS Confirmed by BERHANE JACKSON, JAKI ([id number]) on 11/09/2016 12:56:46 PM Referred By: Confirmed By:JAKI LAST MD
[2016-11-09] MEDS: chlordiazePOXIDE 5 MG CAPSULE PO SCH ×2 (17:56→22:36)
[2016-11-09] MEDS: THIAMINE HCL 100 MG TABLET (FP) PO SCH (22:35)
[2016-11-09] MEDS: MIRTAZAPINE 30 MG TABLET (FP) PO SCH (22:36)
[2016-11-09] MEDS: ATORVASTATIN CA 20 MG TABLET (FP) PO SCH (22:36)
[2016-11-09] MEDS: ZOLPIDEM TARTRATE 5 MG TABLET PO PRN (22:36)
[2016-11-10] MEDS: chlordiazePOXIDE 5 MG CAPSULE PO SCH ×2 (06:01→10:45)
[2016-11-10] MEDS: diphenhydrAMINE HCL 25 MG CAPSULE (FP) PO PRN (06:06)
--- NOTE | 2016-11-10 10:30 | PN ---
S Progress Note (SOAP) Subjective: ALERT,IRRITABLE,ANXIOUS,INTERRUPTED SLEEP Objective: 11/10/16 10:28 Vital Signs Temperature 97.9 F 11/10/16 09:49 Pulse Rate 86 11/10/16 09:49 Respiratory Rate 20 11/10/16 09:49 Blood Pressure 156/106 11/10/16 09:49 O2 Sat by Pulse Oximetry (%) FASTING BLOOD GLUCOSE PENDING Assessment: 11/10/16 10:29 WITHDRAWAL SYMPTOM Plan: CONTINUE DETOX,BGM MONITORING,DISCHARGE IN AM
[2016-11-10] MEDS: ACLIDINIUM BROMIDE 400 MCG/INH AERO.POWD IH SCH ×2 (10:44→22:28)
[2016-11-10] MEDS: ASPIRIN COATED 81 MG TABLET.EC PO SCH (10:45)
[2016-11-10] MEDS: PRENATAL VITAMINS W/ FOLIC ACID TABLET (FP) PO SCH (10:45)
[2016-11-10] MEDS: amLODIPine BESYLATE 5 MG TABLET (FP) PO SCH (10:45)
[2016-11-10] MEDS: LISINOPRIL 20 MG TABLET (FP) PO SCH (10:45)
[2016-11-10] MEDS: chlordiazePOXIDE HCL 10 MG CAPSULE PO SCH ×2 (17:14→22:28)
[2016-11-10] MEDS: ZOLPIDEM TARTRATE 5 MG TABLET PO PRN (22:28)
[2016-11-10] MEDS: THIAMINE HCL 100 MG TABLET (FP) PO SCH (22:28)
[2016-11-10] MEDS: MIRTAZAPINE 30 MG TABLET (FP) PO SCH (22:28)
[2016-11-10] MEDS: ATORVASTATIN CA 20 MG TABLET (FP) PO SCH (22:28)
[2016-11-11] MEDS: IBUPROFEN 400 MG TABLET (FP) PO PRN (03:28)
[2016-11-11] MEDS ORDERED: diphenhydrAMINE HCL 25 MG CAPSULE (FP) PO ONE (04:48)
[2016-11-11] MEDS: chlordiazePOXIDE HCL 10 MG CAPSULE PO SCH (05:12)
[2016-11-11] MEDS ORDERED: LISINOPRIL 20 MG TABLET (FP) PO SCH (06:00)
[2016-11-11] MEDS ORDERED: amLODIPine BESYLATE 5 MG TABLET (FP) PO SCH (06:00)
--- NOTE | 2016-11-11 08:59 | DS ---
[facility] Detox Discharge Summary Admission Date: 11/07/16 Discharge Date: 11/11/16 - History Present History: Alcohol Dependence, Cocaine Dependence - Physical Exam Results Vital Signs: Vital Signs Temperature 98.3 F 11/11/16 06:31 Pulse Rate 85 11/11/16 06:31 Respiratory Rate 18 11/11/16 06:31 Blood Pressure 132/62 11/11/16 06:31 O2 Sat by Pulse Oximetry (%) - Treatment Hospital Course: Detox Protocol Followed, Detoxed Safely, Responded well, Discharged Condition Good, Rehab Referral Accepted - Medication Discharge Medications: Ambulatory Orders Simvastatin [Zocor -] 20 mg PO HS 07/31/13 Aspirin Coated [Ecotrin -] 81 mg PO DAILY tablet.ec 02/26/15 Tiotropium [place] [Spiriva] 1 inh PO DAILY #1 canister 02/26/15 Amlodipine Besylate [Norvasc -] 10 mg PO DAILY 06/24/15 Fluticasone/Salmeterol [Advair 250-50 Diskus] 1 each IH BID 06/24/15 Lisinopril [Prinivil] 20 mg PO DAILY 06/24/15 Nitroglycerin Sublingual [Nitrostat -] 0.4 mg SL PRN PRN 06/24/15 Mirtazapine [Remeron -] 30 mg PO DAILY #30 tablet 11/08/16 - Diagnosis (1) Alcohol dependence with uncomplicated withdrawal Current Visit: Yes Status: Chronic (2) Cocaine dependence Current Visit: Yes Status: Chronic Qualifiers: Substance use status: uncomplicated Qualified Code(s): F14.20 - Cocaine dependence, uncomplicated (3) Asthma Current Visit: Yes Status: Chronic Qualifiers: Asthma severity: mild persistent Asthma complication type: uncomplicated Qualified Code(s): J45.30 - Mild persistent asthma, uncomplicated (4) CAD (coronary artery disease) Current Visit: No Status: Chronic Qualifiers: Coronary Disease-Associated Artery/Lesion type: unspecified vessel or lesion type [place] vs. transplanted heart: [place] heart Associated angina: without angina Qualified Code(s): I25.10 - Atherosclerotic heart disease of [place] coronary artery without angina pectoris (5) COPD (chronic obstructive pulmonary disease) with emphysema Current Visit: Yes Status: Chronic Qualifiers: Emphysema type: unspecified Qualified Code(s): J43.9 - Emphysema, unspecified (6) Hypercholesteremia Current Visit: Yes Status: Chronic (7) Hypertension Current Visit: Yes Status: Chronic Qualifiers: Hypertension type: essential hypertension - AMA Did Patient Leave Against Medical Advice: No (f/u with [facility])
[2016-11-11 10:35] VITALS: BP 138/79; PULSE 95; TEMP 97.9
--- NOTE | 2016-11-11 16:17 | EKG ---
Test Reason : Blood Pressure : / mmHG Vent. Rate : 075 BPM Atrial Rate : 075 BPM P-R Int : 112 ms QRS Dur : 100 ms QT Int : 448 ms P-R-T Axes : 237 008 059 degrees QTc Int : 500 ms UNUSUAL P AXIS, POSSIBLE ECTOPIC ATRIAL RHYTHM LEFT VENTRICULAR HYPERTROPHY WITH REPOLARIZATION ABNORMALITY PROLONGED QT ABNORMAL ECG Confirmed by MD REBECA, ATIF ([id number]) on 11/11/2016 4:17:22 PM Referred By: Confirmed By:ATIF JOSE MD
== END 2016-11-11 09:52 | disposition home or self-care (01) | DRG 774 ==
LOC: YASAS 12:46 → Y6N 17:32
PROVIDERS: ADMIT Internal Medicine; ATTEND Internal Medicine
PROC: HZ2ZZZZ Detoxification Services for Substance Abuse Treatment (ICD-10-PCS; principal; 2016-11-11)
DX: F10.230 Alcohol dependence with withdrawal, uncomplicated (principal); F14.20 Cocaine dependence, uncomplicated; F39 Unspecified mood [affective] disorder; F19.24 Other psychoactive substance dependence with psychoactive substance-induced mood disorder; G47.00 Insomnia, unspecified; I25.10 Atherosclerotic heart disease of native coronary artery without angina pectoris; I10 Essential (primary) hypertension; Z95.5 Presence of coronary angioplasty implant and graft; E78.00 Pure hypercholesterolemia, unspecified; J43.9 Emphysema, unspecified; J45.30 Mild persistent asthma, uncomplicated
CPT/HCPCS: 36415; 80053; 81003; 81015; 82947; 85027; 86593; 87389; 93005; 93010

== ENCOUNTER 2018-03-27 11:49 | Inpatient (IN) | payer OTHER ==
[2018-03-27 12:11] VITALS: BMI 31.0
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
[2018-03-27] MEDS ORDERED: MAGNESIUM CITRATE 300 ML BOTTLE PO PRN (13:04)
[2018-03-27] MEDS ORDERED: MAG HYDROX/AL HYDROX/SIMETH 30 ML UNIT-DOSE CUP PO PRN (13:04)
[2018-03-27] MEDS ORDERED: P-EPHED 60MG/TRIPROLIDI 2.5MG TABLET PO PRN (13:04)
[2018-03-27] MEDS ORDERED: ACETAMINOPHEN 325 MG TABLET (FP) PO PRN (13:04)
[2018-03-27] MEDS ORDERED: chlordiazePOXIDE HCL 25 MG CAPSULE PO PRN (13:04)
[2018-03-27] MEDS ORDERED: IBUPROFEN 400 MG TABLET (FP) PO PRN (13:04)
[2018-03-27] MEDS ORDERED: MAGNESIUM HYDROX 2400MG/30ML ORAL SUSPENSION 30 ML CUP PO PRN (13:04)
[2018-03-27] MEDS ORDERED: NITROGLYCERIN SUBLINGUAL 1/150 0.4 MG TAB SL PRN (13:05)
[2018-03-27] MEDS ORDERED: ALBUTEROL SO4 8 GM HFA INHALER IH PRN (13:05)
[2018-03-27] MEDS ORDERED: ALBUTEROL SO4 0.083% IH SOL 2.5 MG/3 ML VIAL.NEB. NEB PRN (13:06)
[2018-03-27] MEDS ORDERED: HYDROCHLOROTHIAZIDE 25 MG TABLET (FP) PO SCH (14:30)
[2018-03-27] MEDS: LISINOPRIL 20 MG TABLET (FP) PO SCH (15:49)
[2018-03-27] MEDS: amLODIPine BESYLATE 10 MG TABLET (FP) PO SCH (15:50)
[2018-03-27] MEDS: ASPIRIN COATED 81 MG TABLET.EC PO SCH (15:50)
[2018-03-27] MEDS: chlordiazePOXIDE HCL 25 MG CAPSULE PO SCH ×2 (16:52→22:09)
[2018-03-27] MEDS: MENTHOL/PHENOL 1 EACH UD MM PRN (19:11)
[2018-03-27] MEDS ORDERED: [UNRECOGNIZED DRUG - OTHER] PO SCH (22:00)
[2018-03-27] MEDS ORDERED: MELATONIN 5 MG TABLETS PO PRN (22:00)
[2018-03-27] MEDS ORDERED: hydrALAZINE HCL 25 MG TABLET (FP) PO SCH (22:00)
[2018-03-27] MEDS: hydrALAZINE HCL 10 MG TABLET PO SCH (22:07)
[2018-03-27] MEDS: MIRTAZAPINE 30 MG TABLET (FP) PO SCH (22:07)
[2018-03-27] MEDS: ATORVASTATIN CA 80 MG TABLET (FP) PO SCH (22:07)
[2018-03-27] MEDS: ISOSORBIDE DINITRATE 10 MG TABLET (FP) PO SCH (22:08)
[2018-03-27] MEDS: BUDESONIDE/FORMETEROL FUMARATE 80/4.5 mcg INHALER IH SCH (22:09)
[2018-03-27] MEDS: THIAMINE HCL 100 MG TABLET (FP) PO SCH (22:09)
[2018-03-28] MEDS: MENTHOL/PHENOL 1 EACH UD MM PRN ×3 (01:32→17:18)
[2018-03-28] MEDS: chlordiazePOXIDE HCL 25 MG CAPSULE PO SCH ×4 (05:32→22:10)
--- NOTE | 2018-03-28 09:50 | PN ---
[facility] CIWA - CIWA Score Nausea/Vomitin-Mild Nausea/No Vomiting Muscle Tremors: 3 Anxiety: 2 Agitation: 2 Paroxysmal Sweats: 1-Minimal Palms Moist Orientation: 1-Uncertain about Date Tacttile Disturbances: 0-None Auditory Disturbances: 0-None Visual Disturbances: 0-None Headache: 2-Mild CIWA-Ar Total Score: 12 S Progress Note (SOAP) Subjective: bp 100/69 discontinue HCTZ at this time continue pb monitoring tremor sweat mild gi distress anxiety Objective: 03/28/18 14:35 Vital Signs Temperature 96.8 F L 03/28/18 13:11 Pulse Rate 82 03/28/18 13:11 Respiratory Rate 18 03/28/18 13:11 Blood Pressure 119/71 03/28/18 13:11 O2 Sat by Pulse Oximetry (%) Laboratory Last Values WBC 13.2 K/mm3 (4.0-10.0) H 03/28/18 05:45 RBC 5.28 M/mm3 (4.00-5.60) 03/28/18 05:45 Hgb 14.4 GM/dL (11.7-16.9) 03/28/18 05:45 Hct 46.5 % (35.4-49) 03/28/18 05:45 MCV 87.9 fl (80-96) 03/28/18 05:45 MCH 27.3 pg (25.7-33.7) 03/28/18 05:45 MCHC 31.0 g/dl (32.0-35.9) L 03/28/18 05:45 RDW 14.7 % (11.9-15.9) 03/28/18 05:45 Plt Count 356 K/MM3 (134-434) 03/28/18 05:45 MPV 9.8 fl (7.5-11.1) 03/28/18 05:45 Sodium 140 mmol/L (136-145) 03/28/18 05:45 Potassium 4.8 mmol/L (3.5-5.1) 03/28/18 05:45 Chloride 108 mmol/L (98-107) H 03/28/18 05:45 Carbon Dioxide 24 mmol/L (21-32) 03/28/18 05:45 Anion Gap 8 MMOL/L (8-16) 03/28/18 05:45 BUN 12 mg/dL (7-18) 03/28/18 05:45 Creatinine 1.2 mg/dL (0.55-1.3) 03/28/18 05:45 Creat Clearance w eGFR > 60 (>60) 03/28/18 05:45 Random Glucose 108 mg/dL (74-106) H 03/28/18 05:45 Calcium 8.5 mg/dL (8.5-10.1) 03/28/18 05:45 Total Bilirubin 1.4 mg/dL (0.2-1) H 03/28/18 05:45 AST 17 U/L (15-37) 03/28/18 05:45 ALT 30 U/L (13-61) 03/28/18 05:45 Alkaline Phosphatase 128 U/L (45-117) H 03/28/18 05:45 Total Protein 6.8 g/dl (6.4-8.2) 03/28/18 05:45 Albumin 3.5 g/dl (3.4-5.0) 03/28/18 05:45 RPR Titer Nonreactive (NONREACTIVE) 03/28/18 05:45 HIV 1&2 Antibody Screen Negative 03/27/18 13:20 HIV P24 Antigen Negative 03/27/18 13:20 lab noted Assessment: 03/28/18 14:36 withdrawal sx Plan: continue detpx
[2018-03-28 10:21] LABS: HEMATOCRIT 46.5 % (35.4-49); HEMOGLOBIN 14.4 GM/dL (11.7-16.9); MCH 27.3 pg (25.7-33.7); MEAN CELL VOLUME 87.9 fl (80-96); MEAN PLT VOLUME 9.8 fl (7.5-11.1); PLATELET COUNT 356 K/MM3 (134-434); RBC 5.28 M/mm3 (4.00-5.60); RDW 14.7 % (11.9-15.9); WHITE BLOOD COUNT 13.2 K/mm3 (4.0-10.0)
[2018-03-28] MEDS: PRENATAL VITAMINS W/ FOLIC ACID TABLET (FP) PO SCH (10:24)
[2018-03-28] MEDS: amLODIPine BESYLATE 10 MG TABLET (FP) PO SCH (10:24)
[2018-03-28] MEDS: LISINOPRIL 20 MG TABLET (FP) PO SCH (10:25)
[2018-03-28] MEDS: BUDESONIDE/FORMETEROL FUMARATE 80/4.5 mcg INHALER IH SCH ×2 (10:25→22:11)
[2018-03-28] MEDS: TIOTROPIUM BROMIDE 2.5 MCG (SPIRIVA) RESPIMAT INHALER IH SCH (10:27)
[2018-03-28] MEDS: ASPIRIN COATED 81 MG TABLET.EC PO SCH (10:28)
[2018-03-28] MEDS: ISOSORBIDE DINITRATE 10 MG TABLET (FP) PO SCH ×2 (10:28→22:10)
[2018-03-28] MEDS: hydrALAZINE HCL 10 MG TABLET PO SCH ×2 (10:35→22:10)
[2018-03-28 10:40] LABS: ALBUMIN 3.5 g/dl (3.4-5.0); ALK PHOS 128 U/L (45-117); ANION GAP 8 MMOL/L (8-16); BILIRUBIN,TOTAL 1.4 mg/dL (0.2-1); BLOOD UREA NITROGEN 12 mg/dL (7-18); CALCIUM 8.5 mg/dL (8.5-10.1); CHLORIDE 108 mmol/L (98-107); CO2 24 mmol/L (21-32); CREATININE 1.2 mg/dL (0.55-1.3); GLUCOSE,RANDOM 108 mg/dL (74-106); POTASSIUM 4.8 mmol/L (3.5-5.1); SGOT/AST 17 U/L (15-37); SGPT/ALT 30 U/L (13-61); SODIUM 140 mmol/L (136-145); TOT PROT 6.8 g/dl (6.4-8.2)
[2018-03-28] MEDS: guaiFENesin/D-METHORPHAN HB 10 ML UNIT-DOSE CUPS PO PRN (17:32)
[2018-03-28] MEDS: THIAMINE HCL 100 MG TABLET (FP) PO SCH (22:10)
[2018-03-28] MEDS: ATORVASTATIN CA 80 MG TABLET (FP) PO SCH (22:10)
[2018-03-28] MEDS: MIRTAZAPINE 30 MG TABLET (FP) PO SCH (22:10)
[2018-03-29] MEDS: MENTHOL/PHENOL 1 EACH UD MM PRN ×5 (00:47→21:12)
[2018-03-29] MEDS: chlordiazePOXIDE HCL 25 MG CAPSULE PO SCH ×2 (06:11→10:19)
[2018-03-29] MEDS: LISINOPRIL 20 MG TABLET (FP) PO SCH (10:19)
[2018-03-29] MEDS: BUDESONIDE/FORMETEROL FUMARATE 80/4.5 mcg INHALER IH SCH ×2 (10:19→21:42)
[2018-03-29] MEDS: amLODIPine BESYLATE 10 MG TABLET (FP) PO SCH (10:19)
[2018-03-29] MEDS: PRENATAL VITAMINS W/ FOLIC ACID TABLET (FP) PO SCH (10:19)
[2018-03-29] MEDS: ASPIRIN COATED 81 MG TABLET.EC PO SCH (10:19)
[2018-03-29] MEDS: hydrALAZINE HCL 10 MG TABLET PO SCH ×2 (10:20→21:42)
[2018-03-29] MEDS: ISOSORBIDE DINITRATE 10 MG TABLET (FP) PO SCH ×2 (10:20→21:42)
[2018-03-29] MEDS: TIOTROPIUM BROMIDE 2.5 MCG (SPIRIVA) RESPIMAT INHALER IH SCH (10:22)
--- NOTE | 2018-03-29 11:38 | PN ---
S CIWA - CIWA Score Nausea/Vomitin-No Nausea/No Vomiting Muscle Tremors: 2 Anxiety: 1-Mildly Anxious Agitation: 1-Slight > Activity Paroxysmal Sweats: 1-Minimal Palms Moist Orientation: 0-Oriented Tacttile Disturbances: 0-None Auditory Disturbances: 0-None Visual Disturbances: 0-None Headache: 1-Very Mild CIWA-Ar Total Score: 6 BHS Progress Note (SOAP) Subjective: little tremor less sweat patient preferred to begin rehab tomorrow that alcohol withdrawal sx should be able to be managed tomorrow counselor is search for aftercare destination Objective: 03/29/18 11:37 Vital Signs Temperature 97.8 F 03/29/18 09:52 Pulse Rate 86 03/29/18 09:52 Respiratory Rate 20 03/29/18 09:52 Blood Pressure 118/69 03/29/18 09:52 O2 Sat by Pulse Oximetry (%) Laboratory Last Values WBC 13.2 K/mm3 (4.0-10.0) H 03/28/18 05:45 RBC 5.28 M/mm3 (4.00-5.60) 03/28/18 05:45 Hgb 14.4 GM/dL (11.7-16.9) 03/28/18 05:45 Hct 46.5 % (35.4-49) 03/28/18 05:45 MCV 87.9 fl (80-96) 03/28/18 05:45 MCH 27.3 pg (25.7-33.7) 03/28/18 05:45 MCHC 31.0 g/dl (32.0-35.9) L 03/28/18 05:45 RDW 14.7 % (11.9-15.9) 03/28/18 05:45 Plt Count 356 K/MM3 (134-434) 03/28/18 05:45 MPV 9.8 fl (7.5-11.1) 03/28/18 05:45 Sodium 140 mmol/L (136-145) 03/28/18 05:45 Potassium 4.8 mmol/L (3.5-5.1) 03/28/18 05:45 Chloride 108 mmol/L (98-107) H 03/28/18 05:45 Carbon Dioxide 24 mmol/L (21-32) 03/28/18 05:45 Anion Gap 8 MMOL/L (8-16) 03/28/18 05:45 BUN 12 mg/dL (7-18) 03/28/18 05:45 Creatinine 1.2 mg/dL (0.55-1.3) 03/28/18 05:45 Creat Clearance w eGFR > 60 (>60) 03/28/18 05:45 Random Glucose 108 mg/dL (74-106) H 03/28/18 05:45 Calcium 8.5 mg/dL (8.5-10.1) 03/28/18 05:45 Total Bilirubin 1.4 mg/dL (0.2-1) H 03/28/18 05:45 AST 17 U/L (15-37) 03/28/18 05:45 ALT 30 U/L (13-61) 03/28/18 05:45 Alkaline Phosphatase 128 U/L (45-117) H 03/28/18 05:45 Total Protein 6.8 g/dl (6.4-8.2) 03/28/18 05:45 Albumin 3.5 g/dl (3.4-5.0) 03/28/18 05:45 RPR Titer Nonreactive (NONREACTIVE) 03/28/18 05:45 HIV 1&2 Antibody Screen Negative 03/27/18 13:20 HIV P24 Antigen Negative 03/27/18 13:20 lab noted Assessment: 03/29/18 11:37 mild withdrawal sx Plan: continue detox
[2018-03-29] MEDS: chlordiazePOXIDE 5 MG CAPSULE PO SCH ×2 (17:18→22:13)
[2018-03-29] MEDS: THIAMINE HCL 100 MG TABLET (FP) PO SCH (21:41)
[2018-03-29] MEDS: ATORVASTATIN CA 80 MG TABLET (FP) PO SCH (21:41)
[2018-03-29] MEDS: MIRTAZAPINE 30 MG TABLET (FP) PO SCH (21:41)
[2018-03-29] MEDS: guaiFENesin/D-METHORPHAN HB 10 ML UNIT-DOSE CUPS PO PRN (21:41)
[2018-03-30] MEDS: MENTHOL/PHENOL 1 EACH UD MM PRN ×2 (02:53→09:20)
[2018-03-30] MEDS: chlordiazePOXIDE 5 MG CAPSULE PO SCH ×2 (06:14→10:27)
[2018-03-30] MEDS: guaiFENesin/D-METHORPHAN HB 10 ML UNIT-DOSE CUPS PO PRN (06:15)
[2018-03-30 09:10] VITALS: BP 125/81; PULSE 112; TEMP 97.2
[2018-03-30] MEDS: ASPIRIN COATED 81 MG TABLET.EC PO SCH (10:26)
[2018-03-30] MEDS: PRENATAL VITAMINS W/ FOLIC ACID TABLET (FP) PO SCH (10:26)
[2018-03-30] MEDS: BUDESONIDE/FORMETEROL FUMARATE 80/4.5 mcg INHALER IH SCH (10:27)
[2018-03-30] MEDS: hydrALAZINE HCL 10 MG TABLET PO SCH (10:27)
[2018-03-30] MEDS: LISINOPRIL 20 MG TABLET (FP) PO SCH (10:27)
[2018-03-30] MEDS: amLODIPine BESYLATE 10 MG TABLET (FP) PO SCH (10:27)
[2018-03-30] MEDS: ISOSORBIDE DINITRATE 10 MG TABLET (FP) PO SCH (10:28)
[2018-03-30] MEDS: TIOTROPIUM BROMIDE 2.5 MCG (SPIRIVA) RESPIMAT INHALER IH SCH (10:32)
[2018-03-30] MEDS ORDERED: chlordiazePOXIDE HCL 10 MG CAPSULE PO SCH (17:00)
--- NOTE | 2018-03-30 17:37 | DS ---
[facility] Detox Discharge Summary Admission Date: 03/27/18 Discharge Date: 03/30/18 - History Present History: Alcohol Dependence Additional Comments: PATIENT GOING TO [facility] ([place], [place]) FOR AFTERCARE. PATIENT WAS DISCHARGED FROM DETOX UNIT IN STABLE MEDICAL CONDITION. Pertinent Past History: HTN, Hypercholesterolemia, History of Cardiac Stents (2), History of Thyroid Disease, History of C.O.P.D., History of CHF, History of Depression. - Physical Exam Results Vital Signs: Vital Signs Temperature 97.2 F L 03/30/18 09:10 Pulse Rate 112 H 03/30/18 09:10 Respiratory Rate 18 03/30/18 09:10 Blood Pressure 125/81 03/30/18 09:10 O2 Sat by Pulse Oximetry (%) Pertinent Admission Physical Exam Findings: WITHDRAWAL SYMPTOMS. Laboratory Tests 03/27/18 03/28/18 03/28/18 13:20 05:45 05:45 WBC 13.2 H RBC 5.28 Hgb 14.4 Hct 46.5 MCV 87.9 MCH 27.3 MCHC 31.0 L RDW 14.7 Plt Count 356 MPV 9.8 Sodium 140 Potassium 4.8 Chloride 108 H Carbon Dioxide 24 Anion Gap 8 BUN 12 Creatinine 1.2 Creat Clearance w eGFR > 60 Random Glucose 108 H Calcium 8.5 Total Bilirubin 1.4 H AST 17 ALT 30 Alkaline Phosphatase 128 H Total Protein 6.8 Albumin 3.5 RPR Titer HIV 1&2 Antibody Screen Negative HIV P24 Antigen Negative 03/28/18 05:45 WBC RBC Hgb Hct MCV MCH MCHC RDW Plt Count MPV Sodium Potassium Chloride Carbon Dioxide Anion Gap BUN Creatinine Creat Clearance w eGFR Random Glucose Calcium Total Bilirubin AST ALT Alkaline Phosphatase Total Protein Albumin RPR Titer Nonreactive HIV 1&2 Antibody Screen HIV P24 Antigen LABS NOTED. - Treatment Hospital Course: Detox Protocol Followed, Detoxed Safely, Responded well, Discharged Condition Good, Rehab Referral Accepted Patient has Accepted a Rehab Referral to: [facility] ([place], [place]). - Medication Discharge Medications: Ambulatory Orders Mirtazapine [Remeron -] 30 mg PO HS 03/27/18 Albuterol Sulfate Inhaler - [Ventolin HFA Inhaler -] 2 inh PO Q4H PRN #1 inhaler 03/29/18 Amlodipine Besylate [Norvasc -] 10 mg PO DAILY #14 tablet 03/29/18 Atorvastatin Ca [Lipitor] 80 mg PO HS #30 tablet 03/29/18 Hydrochlorothiazide [Hctz -] 25 mg PO DAILY #14 tablet 03/29/18 Lisinopril [Prinivil] 20 mg PO DAILY #14 tablet 03/29/18 Nitroglycerin Sublingual [Nitrostat -] 0.4 mg SL PRN PRN #10 tab 03/29/18 Aspirin Coated [Ecotrin -] 81 mg PO DAILY #30 tablet.ec 03/30/18 Fluticasone/Salmeterol [Advair 250-50 Diskus] 1 each IH BID #1 blst.w.dev Isosorbibe Dinit/Hydralazine [Bidil Tablet] 1 each PO BID 30 Days #60 tablet 02/05 Tiotropium [place] [Spiriva] 1 inh PO DAILY #1 canister 03/30/18 - Diagnosis (1) Alcohol dependence with uncomplicated withdrawal Status: Acute (2) Hypertension Status: Chronic Qualifiers: Hypertension type: essential hypertension - AMA Did Patient Leave Against Medical Advice: No
== END 2018-03-30 10:37 | disposition home or self-care (01) | DRG 775 ==
LOC: YASAS 11:49 → Y3N 14:17
PROC: HZ2ZZZZ Detoxification Services for Substance Abuse Treatment (ICD-10-PCS; principal; 2018-03-27)
DX: F10.230 Alcohol dependence with withdrawal, uncomplicated (principal); I11.0 Hypertensive heart disease with heart failure; I50.9 Heart failure, unspecified; J44.9 Chronic obstructive pulmonary disease, unspecified; E78.00 Pure hypercholesterolemia, unspecified; R00.0 Tachycardia, unspecified; Z87.891 Personal history of nicotine dependence; Z95.5 Presence of coronary angioplasty implant and graft
CPT/HCPCS: 36415; 80053; 85027; 86593; 87389

== ENCOUNTER 2019-05-01 11:22 | Inpatient (IN) | payer OTHER ==
--- NOTE | 2019-05-01 11:56 | BHS.RME ---
Substance Use & Tx History - Substance Use History Alcohol Frequency of use: Daily Substance route: Oral Date of Last Use: 04/30/19 (Vodka 1/2 gallon) Cocaine (Crack) Frequency of use: Less than 3 times per week Substance route: Inhalation (ex: sniffing or snorting) Date of Last Use: 04/29/19 ($1000/week) Physical/Psych/Mental Status - Behavior Eye Contact: Normal - Cooperativeness Cooperativeness: Cooperative - Thinking Thought Processes: Tight - Physical Health Problems Is patient presently having any pain?: No (right lateral thoracic he attributes to pneumonia last week) Does patient presently have any injuries (include location): No Does patient currently have a fever: No Is patient : No CIWA Nausea/Vomitin-Mild Nausea/No Vomiting Muscle Tremors: 4-Moderate,w/Arms Extend Anxiety: 1-Mildly Anxious Agitation: 1-Slight > Activity Paroxysmal Sweats: 1-Minimal Palms Moist Orientation: 0-Oriented Tacttile Disturbances: 4-Moderate Hallucinations Auditory Disturbances: 0-None Visual Disturbances: 2-Mild Sensitivity Headache: 2-Mild CIWA-Ar Total Score: 16
[2019-05-01 12:39] VITALS: BMI 32.0
--- NOTE | 2019-05-01 12:59 | HP ---
CIWA Score Nausea/Vomitin-Mild Nausea/No Vomiting Muscle Tremors: 4-Moderate,w/Arms Extend Anxiety: 1-Mildly Anxious Agitation: 1-Slight > Activity Paroxysmal Sweats: 1-Minimal Palms Moist Orientation: 0-Oriented Tacttile Disturbances: 4-Moderate Hallucinations Auditory Disturbances: 0-None Visual Disturbances: 2-Mild Sensitivity Headache: 2-Mild CIWA-Ar Total Score: 16 - Admission Criteria OASAS Guidelines: Admission for Medically Managed Detox: Requires at least one of the followin. CIWA greater than 12 2. Seizures within the past 24 hours 3. Delirium tremens within the past 24 hours 4. Hallucinations within the past 24 hours 5. Acute intervention needed for co occurring medical disorder 6. Acute intervention needed for co occurring psychiatric disorder 7. Severe withdrawal that cannot be handled at a lower level of care (continued vomiting, continued diarrhea, abnormal vital signs) requiring intravenous medication and/or fluids 8. Admitting History and Physical - Admission Chief Complaint: Mr. Heath presents to [facility] requesting admission to detox for alcohol use disorder. History of Present Illness: Mr. Heath presents to [facility] requesting admission to detox for alcohol use disorder. His last admission here was in March 2018. PMH: COPD, emphysema, CHF, HTN, [place] in 2006, CAD with stent 2010, HLD, pneumonia last week Psych: depression, anxiety, panic PSH: CAD Substance use history Alcohol: first use age 14 y, last use yesterday, 1/2 gallon daily. No history of blackout or seizures. Cocaine: first use age 28 y, last use 2 days ago, twice per week, $1000/week - Past Medical History Cardiovascular: Yes: CAD, CHF, HTN, Hyperlipdemia, [place] Pulmonary: Yes: Pneumonia Psych: Yes: Anxiety, Depression, Panic Musculoskeletal: Yes: Other (left leg fracture 2016) - Smoking History Smoking history: Former smoker Have you smoked in the past 12 months: No If you are a former smoker, when did you quit?: 2010 - Alcohol/Substance Use Hx Alcohol Use: Yes Admission [facility] Allergies/Adverse Reactions: Allergies Allergy/AdvReac Type Severity Reaction Status Date / Time No Known Allergies Allergy Verified 05/01/19 12:19 Exam Limitations: No Limitations - Ebola screening Have you traveled outside of the country in the last 21 days: No Have you had contact with anyone from an Ebola affected area: No Have you been sick,other than usual withdrawal symptoms: No Do you have a fever: No - Review of Systems Constitutional: No Symptoms Reported EENT: reports: Other (feel something "crawling" in both ears) Respiratory: reports: Other (pain left lateral chest with deep inspiration, pt attributes to recent pneumonia) Cardiac: reports: No Symptoms Reported GI: reports: Nausea, Poor Appetite : reports: No Symptoms Reported Musculoskeletal: reports: No Symptoms Reported Integumentary: reports: No Symptoms Reported Neuro: reports: No Symptoms reported Endocrine: reports: No Symptoms Reported Hematology: reports: No Symptoms Reported Psychiatric: reports: Anxious Patient History - Patient Medical History Hx Anemia: No Hx Asthma: No Hx Chronic Obstructive Pulmonary Disease (COPD): Yes Hx Cancer: No Hx Cardiac Disorders: Yes Hx Congestive Heart Failure: Yes (arterial blockage) Hx Hypertension: Yes Hx Hypercholesterolemia: Yes Hx Pacemaker: No HX Cerebrovascular Accident: No Hx Seizures: No Hx Dementia: No Hx Diabetes: No Hx Gastrointestinal Disorders: No Hx Liver Disease: No Hx Genitourinary Disorders: No Hx Sexually Transmitted Disorders: No Hx Renal Disease (ESRD): No Hx Thyroid Disease: Yes (not taking meds, told "inflammed", no meds to tx) Hx Human Immunodeficiency Virus (HIV): No (negative) Hx Hepatitis C: No (negative) Hx Depression: Yes Hx Suicide Attempt: No Hx Bipolar Disorder: No Hx Schizophrenia: No - Patient Surgical History Past Surgical History: Yes Hx Neurologic Surgery: No Hx Cataract Extraction: No Hx Cardiac Surgery: Yes (cardiac cath in stents placed 10/03) Hx Lung Surgery: No Hx Breast Surgery: No Hx Breast Biopsy: No Hx Abdominal Surgery: No Hx Appendectomy: No Hx Cholecystectomy: No Hx Genitourinary Surgery: No Hx Orthopedic Surgery: Yes (left tibia fx) Anesthesia Reaction: No - PPD History Date: 09/13/17 Results: 0 mm - Reproductive History Patient : No - Smoking Cessation Smoking history: Former smoker Have you smoked in the past 12 months: No If you are a former smoker, when did you quit?: 2010 Hx Chewing Tobacco Use: No Initiated information on smoking cessation: No - Substances abused Alcohol Substance route: Oral Frequency: Daily Amount used: half of vodka Age of first use: 14 Date of last use: 04/30/19 Cocaine Substance route: Inhalation Frequency: 1-2 times per week Amount used: 1000 thousand Age of first use: 28 Date of last use: 04/29/19 Admission Physical Exam [facility] - Vital Signs Vital Signs: Vital Signs - 24 hr 05/01/19 12:32 Temperature 98.7 F Pulse Rate 93 H Respiratory 18 Rate Blood Pressure 177/100 H - Physical General Appearance: Yes: Obese, Tremorous, Anxious HEENTM: Yes: Hearing grossly Normal, Normocephalic, Normal Voice Respiratory: Yes: Wheezing (right lower lobe) Neck: Yes: Within Normal Limits Breast: Yes: Breast Exam Deferred Cardiology: Yes: Regular Rate, S1, S2 Abdominal: Yes: Normal Bowel Sounds, Tenderness (mild right upper quadrant), Hernia (? ventral hernia) Genitourinary: Yes: Other (deferred) Back: Yes: Within Normal Limits Musculoskeletal: Yes: Within Normal Limits Extremities: Yes: Within Normal Limits Neurological: Yes: Within Normal Limits Integumentary: Yes: Dry - Diagnostic (1) Alcohol dependence with uncomplicated withdrawal Current Visit: No Status: Acute Cleared for Admission [facility] - Detox or Rehab [facility] Level of Care: Medically Managed Breathalyzer - Breathalyzer Breathalyzer: 0 Urine Drug Screen - Test Device Lot number: [id number] Expiration date: 10/11/20 - Control Is test valid?: Yes - Results Drug screen NEGATIVE: No Urine drug screen results: [facility]-Cocaine Inpatient Rehab Admission - Rehab Decision to Admit Inpatient rehab admission?: No
[2019-05-01] MEDS ORDERED: METHOCARBAMOL 500 MG TABLET PO PRN (13:03)
[2019-05-01] MEDS ORDERED: BISMUTH SUBSALICYLATE 524 MG/30 ML UD PO PRN (13:03)
[2019-05-01] MEDS ORDERED: ACETAMINOPHEN 325 MG TABLET (FP) PO PRN ×2 (13:03)
[2019-05-01] MEDS ORDERED: IBUPROFEN 400 MG TABLET (FP) PO PRN (13:03)
[2019-05-01] MEDS ORDERED: MAGNESIUM CITRATE 300 ML BOTTLE PO PRN (13:03)
[2019-05-01] MEDS ORDERED: MAG HYDROX/AL HYDROX/SIMETH 30 ML UNIT-DOSE CUP PO PRN (13:03)
[2019-05-01] MEDS ORDERED: MAGNESIUM HYDROX 2400MG/30ML ORAL SUSPENSION 30 ML CUP PO PRN (13:03)
[2019-05-01] MEDS ORDERED: hydrOXYzine PAMOATE 25 MG CAPSULE (FP) PO PRN (13:03)
[2019-05-01] MEDS ORDERED: chlordiazePOXIDE HCL 25 MG CAPSULE PO PRN (13:03)
[2019-05-01] MEDS ORDERED: NITROGLYCERIN SUBLINGUAL 1/150 0.4 MG TAB SL PRN (13:06)
[2019-05-01] MEDS ORDERED: [UNRECOGNIZED DRUG - OTHER] PO SCH (13:15)
[2019-05-01] MEDS ORDERED: hydrALAZINE HCL 25 MG TABLET (FP) PO SCH (14:00)
[2019-05-01] MEDS: ASPIRIN COATED 81 MG TABLET.EC PO SCH (14:22)
[2019-05-01] MEDS: HYDROCHLOROTHIAZIDE 25 MG TABLET (FP) PO SCH (14:22)
[2019-05-01] MEDS: amLODIPine BESYLATE 10 MG TABLET (FP) PO SCH (14:22)
[2019-05-01] MEDS: BUDESONIDE/FORMETEROL FUMARATE 80/4.5 mcg INHALER IH SCH ×2 (14:23→22:18)
[2019-05-01] MEDS: MENTHOL/PHENOL 1 EACH UD MM PRN ×2 (14:30→19:31)
[2019-05-01] MEDS: ISOSORBIDE DINITRATE 20 MG TABLET (FP) PO SCH ×2 (15:20→22:16)
[2019-05-01 17:19] LABS: HEMATOCRIT 45.8 % (35.4-49); HEMOGLOBIN 14.6 GM/dL (11.7-16.9); MCH 28.3 pg (25.7-33.7); MCHC 31.9 g/dl (32.0-35.9); MEAN CELL VOLUME 88.6 fl (80-96); MEAN PLT VOLUME 9.4 fl (7.5-11.1); PLATELET COUNT 306 K/MM3 (134-434); RBC 5.17 M/mm3 (4.00-5.60); RDW 14.4 % (11.9-15.9); WHITE BLOOD COUNT 14.9 K/mm3 (4.0-10.0)
[2019-05-01] MEDS: chlordiazePOXIDE HCL 25 MG CAPSULE PO SCH ×2 (17:21→22:15)
[2019-05-01 17:29] LABS: ALBUMIN 3.4 g/dl (3.4-5.0); BILIRUBIN,TOTAL 0.9 mg/dL (0.2-1); CALCIUM 8.8 mg/dL (8.5-10.1); CREATININE 1.1 mg/dL (0.55-1.3); POTASSIUM 4.1 mmol/L (3.5-5.1); TOT PROT 6.5 g/dl (6.4-8.2)
[2019-05-01] MEDS: ATORVASTATIN CA 80 MG TABLET (FP) PO SCH (22:16)
[2019-05-01] MEDS: THIAMINE HCL 100 MG TABLET (FP) PO SCH (22:16)
[2019-05-01] MEDS: hydrALAZINE HCL 25 MG TABLET (FP) PO SCH (22:16)
[2019-05-01] MEDS: MELATONIN 5 MG TABLETS PO PRN (22:18)
[2019-05-02] MEDS: hydrALAZINE HCL 25 MG TABLET (FP) PO SCH ×3 (06:06→21:59)
[2019-05-02] MEDS: chlordiazePOXIDE HCL 25 MG CAPSULE PO SCH ×4 (06:06→22:03)
--- NOTE | 2019-05-02 09:34 | PN ---
S CIWA - CIWA Score Nausea/Vomitin-Mild Nausea/No Vomiting Muscle Tremors: 4-Moderate,w/Arms Extend Anxiety: 4-Mod. Anxious/Guarded Agitation: 1-Slight > Activity Paroxysmal Sweats: 2 Orientation: 0-Oriented Tacttile Disturbances: 0-None Auditory Disturbances: 0-None Visual Disturbances: 0-None Headache: 1-Very Mild CIWA-Ar Total Score: 13 BHS Progress Note (SOAP) Subjective: 58 years old male admitted on 05/01/19 for alcohol withdrawal sx management treating with librium detox regiment feeling tired resting in bed limited conversation with staff Objective: 05/02/19 09:39 Vital Signs Temperature 96.1 F L 05/02/19 08:47 Pulse Rate 91 H 05/02/19 08:47 Respiratory Rate 18 05/02/19 08:47 Blood Pressure 110/72 05/02/19 08:47 O2 Sat by Pulse Oximetry (%) Laboratory Last Values WBC 14.9 K/mm3 (4.0-10.0) H 05/01/19 13:20 RBC 5.17 M/mm3 (4.00-5.60) 05/01/19 13:20 Hgb 14.6 GM/dL (11.7-16.9) 05/01/19 13:20 Hct 45.8 % (35.4-49) 05/01/19 13:20 MCV 88.6 fl (80-96) 05/01/19 13:20 MCH 28.3 pg (25.7-33.7) 05/01/19 13:20 MCHC 31.9 g/dl (32.0-35.9) L 05/01/19 13:20 RDW 14.4 % (11.9-15.9) 05/01/19 13:20 Plt Count 306 K/MM3 (134-434) 05/01/19 13:20 MPV 9.4 fl (7.5-11.1) 05/01/19 13:20 Sodium 143 mmol/L (136-145) 05/01/19 13:20 Potassium 4.1 mmol/L (3.5-5.1) 05/01/19 13:20 Chloride 113 mmol/L (98-107) H 05/01/19 13:20 Carbon Dioxide 24 mmol/L (21-32) 05/01/19 13:20 Anion Gap 5 MMOL/L (8-16) L 05/01/19 13:20 BUN 18.0 mg/dL (7-18) 05/01/19 13:20 Creatinine 1.1 mg/dL (0.55-1.3) 05/01/19 13:20 Est GFR (CKD-EPI)AfAm 85.31 05/01/19 13:20 Est GFR (CKD-EPI)NonAf 73.61 05/01/19 13:20 Random Glucose 130 mg/dL (74-106) H 05/01/19 13:20 Calcium 8.8 mg/dL (8.5-10.1) 05/01/19 13:20 Total Bilirubin 0.9 mg/dL (0.2-1) 05/01/19 13:20 AST 64 U/L (15-37) H 05/01/19 13:20 ALT 104 U/L (13-61) H 05/01/19 13:20 Alkaline Phosphatase 133 U/L (45-117) H 05/01/19 13:20 Total Protein 6.5 g/dl (6.4-8.2) 05/01/19 13:20 Albumin 3.4 g/dl (3.4-5.0) 05/01/19 13:20 lab noted wbc elevation 05/02/19 09:42 ua nebulizer q6h prn x 3 days due to patient resting in bed most of the day encourage breathing hygiene 05/02/19 09:49 Assessment: 05/02/19 09:49 alcohol withdrawal 05/02/19 09:50 asthma copd Plan: librium regiment nebulizer prn along with rescue pump
[2019-05-02] MEDS ORDERED: ALBUTEROL SO4 0.083% IH SOL 2.5 MG/3 ML VIAL.NEB. NEB PRN (09:41)
[2019-05-02] MEDS: PRENATAL VITAMINS W/ FOLIC ACID TABLET (FP) PO SCH (10:11)
[2019-05-02] MEDS: ISOSORBIDE DINITRATE 20 MG TABLET (FP) PO SCH ×2 (10:11→21:59)
[2019-05-02] MEDS: amLODIPine BESYLATE 10 MG TABLET (FP) PO SCH (10:12)
[2019-05-02] MEDS: ASPIRIN COATED 81 MG TABLET.EC PO SCH (10:12)
[2019-05-02] MEDS: HYDROCHLOROTHIAZIDE 25 MG TABLET (FP) PO SCH (10:12)
[2019-05-02] MEDS: BUDESONIDE/FORMETEROL FUMARATE 80/4.5 mcg INHALER IH SCH ×2 (10:12→21:58)
[2019-05-02] MEDS: LISINOPRIL 20 MG TABLET (FP) PO SCH (10:12)
[2019-05-02] MEDS: AMOXICILLIN 500 MG CAPSULE (FP) PO SCH ×2 (11:27→21:59)
[2019-05-02] MEDS: TIOTROPIUM BROMIDE 2.5 MCG (SPIRIVA) RESPIMAT INHALER IH SCH (11:27)
--- NOTE | 2019-05-02 11:46 | CONSULT ---
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 This is one of multiple admissions for patient. Patient admitted to for alcohol and cocaine dependence. Substance Abuse History: Smoking Cessation. Smoking history: Former smoker. Have you smoked in the past 12 months: No. If you are a former smoker, when did you quit?: 2010. Hx Chewing Tobacco Use: No. Initiated information on smoking cessation: No. - Substances abused. Alcohol. Substance route: Oral. Frequency: Daily. Amount used: half of vodka. Age of first use: 14. Date of last use: 04/30/19. Cocaine. Substance route: Inhalation. Frequency: 1-2 times per week. Amount used: 1000 thousand. Age of first use: 28. Date of last use: 04/29/19 Medical History: COPD, emphysema, CHF, HTN, [place] in 2006, CAD with stent 2010, HLD , pneumonia last week Psychiatric History: Patient denies history of psychiatric hospitalization and suicide attempt. Patient first received psychiatric care while in [place] [facility]. He was diagnosed with MDD and prescribed remeron 30mg HS. Patient has been receiving outpatient psychiatric care at the [facility] since 2016. Mr. Heath states that he is prescribed remeron 45mg + Ambien 10mg + Klonopin (unsure of dose). Patient reports medication compliance. At present patient is experiencing difficulty sleeping. Physical/Sexual Abuse/Trauma History: denies. Mental Status Exam - Mental Status Exam Alert and Oriented to: Time, Place, Person Cognitive Function: Good Patient Appearance: Well Groomed Mood: Withdrawn Affect: Mood Congruent Patient Behavior: Appropriate, Cooperative Speech Pattern: Appropriate Voice Loudness: Normal Thought Process: Intact, Goal Oriented Thought Disorder: Not Present Hallucinations: Denies Suicidal Ideation: Denies Homicidal Ideation: Denies Insight/Judgement: Poor Sleep: Poorly Appetite: Fair Muscle strength/Tone: Normal Gait/Station: Normal Psychiatric Findings - Problem List ([place] 1, 2,3) (1) Alcohol dependence with uncomplicated withdrawal Current Visit: Yes Status: Acute (2) Cocaine dependence Current Visit: Yes Status: Chronic Qualifiers: Substance use status: uncomplicated Qualified Code(s): F14.20 - Cocaine dependence, uncomplicated (3) Mood disorder Current Visit: Yes Status: Chronic (4) Substance-induced sleep disorder Current Visit: Yes Status: Acute - Initial Treatment Plan Initial Treatment Plan: Psychoeducation provided. Detoxification in progress. Will order Remeron 45mg HS. Benefits and side effects discussed. Verbal consent given.
[2019-05-02] MEDS: ALBUTEROL SO4 HFA INHALER IH PRN (13:43)
[2019-05-02] MEDS: MENTHOL/PHENOL 1 EACH UD MM PRN (17:44)
[2019-05-02] MEDS: MIRTAZAPINE 15 MG TABLET (FP) PO SCH (21:59)
[2019-05-02] MEDS: THIAMINE HCL 100 MG TABLET (FP) PO SCH (21:59)
[2019-05-02] MEDS: ATORVASTATIN CA 80 MG TABLET (FP) PO SCH (21:59)
[2019-05-02] MEDS: MELATONIN 5 MG TABLETS PO PRN (22:03)
[2019-05-03] MEDS: ALBUTEROL SO4 HFA INHALER IH PRN (03:55)
[2019-05-03] MEDS: MENTHOL/PHENOL 1 EACH UD MM PRN ×2 (03:56→14:57)
[2019-05-03] MEDS: chlordiazePOXIDE HCL 25 MG CAPSULE PO SCH ×4 (06:09→22:31)
[2019-05-03] MEDS: hydrALAZINE HCL 25 MG TABLET (FP) PO SCH ×3 (06:09→22:30)
--- NOTE | 2019-05-03 08:54 | PN ---
S CIWA - CIWA Score Nausea/Vomitin-No Nausea/No Vomiting Muscle Tremors: 4-Moderate,w/Arms Extend Anxiety: 1-Mildly Anxious Agitation: 0-Normal Activity Paroxysmal Sweats: 3 Orientation: 0-Oriented Tacttile Disturbances: 0-None Auditory Disturbances: 0-None Visual Disturbances: 1-Very Mild Sensitivity Headache: 1-Very Mild CIWA-Ar Total Score: 10 BHS Progress Note (SOAP) Subjective: Complains of cough, nonproductive Objective: 05/03/19 08:50 Laboratory Tests 05/01/19 05/01/19 05/01/19 13:20 13:20 13:20 WBC 14.9 H RBC 5.17 Hgb 14.6 Hct 45.8 MCV 88.6 MCH 28.3 MCHC 31.9 L RDW 14.4 Plt Count 306 MPV 9.4 Sodium 143 Potassium 4.1 Chloride 113 H Carbon Dioxide 24 Anion Gap 5 L BUN 18.0 Creatinine 1.1 Est GFR (CKD-EPI)AfAm 85.31 Est GFR (CKD-EPI)NonAf 73.61 Random Glucose 130 H Calcium 8.8 Total Bilirubin 0.9 AST 64 H ALT 104 H Alkaline Phosphatase 133 H Total Protein 6.5 Albumin 3.4 RPR Titer Nonreactive Vital Signs - 24 hr 05/02/19 05/02/19 05/02/19 12:58 16:43 20:21 Temperature 98.1 F 97.8 F 97.7 F Pulse Rate 98 H 91 H 93 H Respiratory 18 18 18 Rate Blood Pressure 100/57 L 113/69 128/80 05/03/19 05/03/19 00:30 06:02 Temperature 97.5 F L Pulse Rate 85 Respiratory 18 18 Rate Blood Pressure 101/62 PE gnl: WD, obese Resp: loose cough, lungs clear Gait: steady Motor: tremor with arms extended Assessment: 05/03/19 08:51 1. Alcohol use disroder 2. cough, recent pneumonia Plan: 1/ continue alcohol withdrawal protocol 2. Robitussin 3. Chest xray
[2019-05-03] MEDS ORDERED: guaiFENesin 200 MG/10 ML 10 ML UNIT-DOSE CUPS PO PRN (09:07)
[2019-05-03] MEDS: LISINOPRIL 20 MG TABLET (FP) PO SCH (10:17)
[2019-05-03] MEDS: amLODIPine BESYLATE 10 MG TABLET (FP) PO SCH (10:17)
[2019-05-03] MEDS: HYDROCHLOROTHIAZIDE 25 MG TABLET (FP) PO SCH (10:17)
[2019-05-03] MEDS: ISOSORBIDE DINITRATE 20 MG TABLET (FP) PO SCH ×2 (10:17→22:31)
[2019-05-03] MEDS: ASPIRIN COATED 81 MG TABLET.EC PO SCH (10:17)
[2019-05-03] MEDS: AMOXICILLIN 500 MG CAPSULE (FP) PO SCH ×2 (10:17→22:30)
[2019-05-03] MEDS: PRENATAL VITAMINS W/ FOLIC ACID TABLET (FP) PO SCH (10:17)
[2019-05-03] MEDS: BUDESONIDE/FORMETEROL FUMARATE 80/4.5 mcg INHALER IH SCH ×2 (10:18→22:31)
[2019-05-03] MEDS: TIOTROPIUM BROMIDE 2.5 MCG (SPIRIVA) RESPIMAT INHALER IH SCH (10:18)
--- NOTE | 2019-05-03 14:55 | PN ---
BHS Progress Note Note: Chest xray done on 05/01/2019 No discrete infiltrate Atelectasis or scarring right mid field Plan 1. Encourage cough and deep breath 2. prn Robitussin 3. prn ibuprofen
[2019-05-03 17:33] LABS: URINE APPEARANCE CLEAR; URINE BILIRUBIN NEGATIVE (NEGATIVE); URINE COLOR YELLOW; URINE GLUCOSE (UA) NEGATIVE (NEGATIVE); URINE KETONE NEGATIVE (NEGATIVE); URINE LEUK ESTERASE NEGATIVE (NEGATIVE); URINE NITRITE NEGATIVE (NEGATIVE); URINE PROTEIN NEGATIVE (NEGATIVE); URINE UROBILINOGEN 0.2 mg/dL (0.2-1.0)
[2019-05-03 20:30] VITALS: BP 129/81; TEMP 98.4
--- NOTE | 2019-05-03 20:40 | PN ---
S Progress Note (SOAP) Subjective: pt c/o nausea/ vomiting and cough x 2 days . PMH: COPD, emphysema, CHF, HTN, [place] in 2006, CAD with stent 2010, HLD, pneumonia Active Medications Acetaminophen (Tylenol -) 650 mg PO Q6H PRN PRN Reason: PAIN LEVEL 4 - 6 Acetaminophen (Tylenol -) 650 mg PO Q6H PRN PRN Reason: FEVER Last Admin: 05/03/19 17:58 Dose: 650 mg Al Hydroxide/Mg Hydroxide (Mylanta Oral Suspension -) 30 ml PO Q6H PRN PRN Reason: DYSPEPSIA Albuterol Sulfate (Ventolin Hfa Inhaler -) 2 puff IH Q4H PRN PRN Reason: ASTHMA Last Admin: 05/03/19 03:55 Dose: 2 inh Albuterol Sulfate (Ventolin 0.083% Nebulizer Soln -) 1 amp NEB Q6H PRN PRN Reason: SHORT OF BREATH/WHEEZING Stop: 05/05/19 23:59 Amlodipine Besylate (Norvasc -) 10 mg PO DAILY [facility] Last Admin: 05/03/19 10:17 Dose: 10 mg Amoxicillin (Amoxicillin -) 500 mg PO BID [facility] Stop: 05/09/19 10:14 Last Admin: 05/03/19 10:17 Dose: 500 mg Aspirin (Ecotrin -) 81 mg PO DAILY [facility] Last Admin: 05/03/19 10:17 Dose: 81 mg Atorvastatin Calcium (Lipitor -) 80 mg PO HS [facility] Last Admin: 05/02/19 21:59 Dose: 80 mg Bismuth Subsalicylate (Pepto-Bismol -) 524 mg PO Q1H PRN PRN Reason: DIARRHEA Budesonide/Formoterol Fumarate (Symbicort 80/4.5mcg -) 2 puff IH BID [facility] Last Admin: 05/03/19 10:18 Dose: 2 inh Chlordiazepoxide HCl (Librium -) 10 mg PO [id number] [facility] Stop: 05/04/19 23:01 Chlordiazepoxide HCl (Librium -) 10 mg PO Q12H [place] Stop: 05/05/19 17:01 Chlordiazepoxide HCl (Librium -) 10 mg PO Q4H PRN PRN Reason: WITHDRAWAL(CONT SUBST) Stop: 02/16/20 00:00 Chlordiazepoxide HCl (Librium -) 10 mg PO ONCE@0500 ONE Stop: 05/06/19 05:01 Chlordiazepoxide HCl (Librium -) 25 mg PO [id number] [facility] Stop: 05/03/19 23:01 Last Admin: 05/03/19 17:59 Dose: 25 mg Chlordiazepoxide HCl (Librium -) 25 mg PO Q4H PRN PRN Reason: WITHDRAWAL(CONT SUBST) Stop: 05/03/19 23:59 Last Admin: 05/03/19 15:15 Dose: 25 mg Eucalyptus/Menthol/Phenol/Sorbitol (Cepastat Lozenge -) 1 each MM Q4H PRN PRN Reason: SORE THROAT Stop: 05/07/19 13:03 Last Admin: 05/03/19 14:57 Dose: 1 each Guaifenesin (Robitussin -) 10 ml PO Q4H PRN PRN Reason: COUGH Last Admin: 05/03/19 10:20 Dose: 10 ml Hydralazine HCl (Apresoline -) 25 mg PO TID [facility] Last Admin: 05/03/19 14:54 Dose: 25 mg Hydrochlorothiazide (Hctz -) 25 mg PO DAILY [facility] Last Admin: 05/03/19 10:17 Dose: 25 mg Hydroxyzine Pamoate (Vistaril -) 25 mg PO Q6H PRN PRN Reason: For Anxiety Stop: 05/07/19 13:03 Ibuprofen (Motrin -) 400 mg PO Q6H PRN PRN Reason: PAIN LEVEL 1 - 3 Isosorbide Dinitrate (Isordil -) 20 mg PO BID [facility] Last Admin: 05/03/19 10:17 Dose: 20 mg Lisinopril (Prinivil) 20 mg PO DAILY [facility] Last Admin: 05/03/19 10:17 Dose: 20 mg Magnesium Citrate (Citroma -) 300 ml PO Q48H PRN PRN Reason: CONSTIPATION Magnesium Hydroxide (Milk Of Magnesia -) 30 ml PO PRN PRN PRN Reason: CONSTIPATION Melatonin (Melatonin) 5 mg PO HS PRN PRN Reason: INSOMNIA Last Admin: 05/02/19 22:03 Dose: 5 mg Methocarbamol (Robaxin -) 500 mg PO Q6H PRN PRN Reason: MUSCLE SPASMS Stop: 05/07/19 13:03 Last Admin: 05/02/19 20:18 Dose: 500 mg Mirtazapine (Remeron -) 45 mg PO [facility] Last Admin: 05/02/19 21:59 Dose: 45 mg Nitroglycerin (Nitrostat -) 0.4 mg SL PRN PRN PRN Reason: FOR CHEST PAIN Multivit/Folic Acid/Iron ( Vitamins (Sjr) -) 1 tab PO DAILY [facility] Last Admin: 05/03/19 10:17 Dose: 1 tab Thiamine HCl (Vitamin B1 -) 100 mg PO [facility] Last Admin: 05/02/19 21:59 Dose: 100 mg Tiotropium [place] (Spiriva Respimat) 2 puff IH DAILY [facility] Last Admin: 05/03/19 10:18 Dose: 2 puff Objective: wnwd , moderate distress CV RRR S1 S2 tachycardia , no pedal edema resp : bibasilar crackles , mild distress , sitting on edge of bed leaning forward . pulse Ox 88% on RA Vital Signs - 24 hr 05/03/19 05/03/19 05/03/19 00:30 06:02 08:52 Temperature 97.5 F L 97.1 F L Pulse Rate 85 94 H Respiratory 18 18 20 Rate Blood Pressure 101/62 130/83 05/03/19 05/03/19 05/03/19 12:31 16:33 20:25 Temperature 97.2 F L 100.6 F H 98.4 F Pulse Rate 96 H 110 H 107 H Respiratory 20 18 20 Rate Blood Pressure 122/78 114/83 129/81 Assessment: 05/03/19 20:39 COPD exacerbation Plan: O2 3L via [place] transfer to [email or web address] ED for further evaluation , report to Dr. Inman
[2019-05-03 21:16] VITALS: PULSE 103
[2019-05-03] MEDS: ATORVASTATIN CA 80 MG TABLET (FP) PO SCH (22:31)
[2019-05-03] MEDS: MIRTAZAPINE 15 MG TABLET (FP) PO SCH (22:31)
[2019-05-03] MEDS: THIAMINE HCL 100 MG TABLET (FP) PO SCH (22:31)
[2019-05-04] MEDS ORDERED: chlordiazePOXIDE HCL 10 MG CAPSULE PO PRN
[2019-05-04] MEDS ORDERED: chlordiazePOXIDE HCL 10 MG CAPSULE PO SCH (05:00)
[2019-05-04] MEDS: hydrALAZINE HCL 25 MG TABLET (FP) PO SCH (05:41)
[2019-05-05] MEDS ORDERED: chlordiazePOXIDE HCL 10 MG CAPSULE PO SCH (05:00)
[2019-05-06] MEDS ORDERED: chlordiazePOXIDE HCL 10 MG CAPSULE PO ONE (05:00)
== END 2019-05-04 06:13 | disposition short-term general hospital (02) | DRG 774 ==
LOC: YASAS 11:22 → Y3N 13:02
PROVIDERS: ADMIT Allergy & Immunology; ATTEND Allergy & Immunology
PROC: HZ2ZZZZ Detoxification Services for Substance Abuse Treatment (ICD-10-PCS; principal; 2019-05-01)
DX: F10.230 Alcohol dependence with withdrawal, uncomplicated (principal); F14.20 Cocaine dependence, uncomplicated; F19.282 Other psychoactive substance dependence with psychoactive substance-induced sleep disorder; F41.9 Anxiety disorder, unspecified; F32.9 Major depressive disorder, single episode, unspecified; F39 Unspecified mood [affective] disorder; J18.9 Pneumonia, unspecified organism; J44.1 Chronic obstructive pulmonary disease with (acute) exacerbation; I25.10 Atherosclerotic heart disease of native coronary artery without angina pectoris; I11.0 Hypertensive heart disease with heart failure; I50.9 Heart failure, unspecified; Z95.5 Presence of coronary angioplasty implant and graft; Z87.891 Personal history of nicotine dependence; E78.5 Hyperlipidemia, unspecified; L73.9 Follicular disorder, unspecified
CPT/HCPCS: 36415; 71046-TC-FY; 80053; 81003; 85027; 86593

== ENCOUNTER 2019-05-03 22:11 | Inpatient (IN) | payer OTHER ==
--- NOTE | 2019-05-03 23:12 | PDOC ---
Attending Attestation - Resident Resident Name: Hood Perrin - ED Attending Attestation I have performed the following: I have examined & evaluated the patient, The case was reviewed & discussed with the resident, I agree w/resident's findings & plan - HPI HPI: 05/04/19 00:27 Pt sent from [facility] for fever and cough and likely pneumonia - Physicial Exam PE: 05/04/19 00:28 Agree with resident exam 05/04/19 00:36 Pt has no fever now. Improved after meds in the ER. Pt has a flushed face, Decreased breath sounds bilaterally Pt has normal heart rate. Pt is anxious because he was at [facility] last week and he was treated with azithromycin and he says that he still has fevers. Abd globular NT ND no C/C/E normal neuro exam. - Medical Decision Making 05/04/19 00:35 same as old EKG NSR 05/04/19 04:56 Labs are normal Flu cx negative WBC slightly elevated. Pt has a pneumonia; we are treating with ceftriaxone and doxy.
--- NOTE | 2019-05-03 23:16 | PDOC ---
History of Present Illness - General Stated Complaint: DIFFICULTY BREATHING Time Seen by Provider: 05/03/19 23:01 - History of Present Illness Initial Comments: 05/03/19 23:57 58 yo M PMH COPD, CHF, HTN, [place] in 2006, CAD with stent 2010, HLD, R sided pneumonia last week diagnosed at [facility] taking azithromycin, AYANA from [facility] for SOB. Notes that he has been nauseous for the past 2 days, with 6 episodes of nbnb vomiting. Further complains of cough, fevers/chills, and L sided chest pain upon arrival to the ER, 09/26, radiating into L arm, stabbing. States it feels similar to when he had his [place], but less intense. Is always SOB, but has been more SOB today than normal. Notes that he always has some mild RUQ tenderness, currently about 3/10. Patient is detoxing from alcohol and cocaine; last use of cocaine one month ago , last drink about 4 days ago. Current CIWA 0. Past History - Past Medical History Allergies/Adverse Reactions: Allergies Allergy/AdvReac Type Severity Reaction Status Date / Time No Known Allergies Allergy Verified 05/01/19 12:19 Home Medications: Ambulatory Orders Mirtazapine [Remeron -] 30 mg PO HS 03/27/18 Albuterol Sulfate Inhaler - [Ventolin HFA Inhaler -] 2 inh PO Q4H PRN #1 inhaler 03/29/18 Amlodipine Besylate [Norvasc -] 10 mg PO DAILY #14 tablet 03/29/18 Atorvastatin Ca [Lipitor] 80 mg PO HS #30 tablet 03/29/18 Hydrochlorothiazide [Hctz -] 25 mg PO DAILY #14 tablet 03/29/18 Lisinopril [Prinivil] 20 mg PO DAILY #14 tablet 03/29/18 Nitroglycerin Sublingual [Nitrostat -] 0.4 mg SL PRN PRN #10 tab 03/29/18 Aspirin Coated [Ecotrin -] 81 mg PO DAILY #30 tablet.ec 03/30/18 Fluticasone/Salmeterol [Advair 250-50 Diskus] 1 each IH BID #1 blst.w.dev Isosorbibe Dinit/Hydralazine [Bidil Tablet] 1 each PO BID 30 Days #60 tablet 02/05 Tiotropium [place] [Spiriva] 1 inh PO DAILY #1 canister 03/30/18 Clonazepam [Klonopin] 1 mg PO DAILY 05/04/19 Zolpidem Tartrate [Ambien] 10 mg PO DAILY 05/04/19 Anemia: No Asthma: No Cancer: No Cardiac Disorders: Yes CVA: No COPD: Yes CHF: Yes (arterial blockage) Dementia: No Diabetes: No GI Disorders: No Disorders: No HTN: Yes Hypercholesterolemia: Yes Kidney Stones: No Liver Disease: No Seizures: No Thyroid Disease: Yes (not taking meds, told "inflammed", no meds to tx) - Surgical History Abdominal Surgery: No Appendectomy: No Cardiac Surgery: Yes (cardiac cath in stents placed 10/03) Cholecystectomy: No Lung Surgery: No Neurologic Surgery: No Orthopedic Surgery: Yes (left tibia fx) - Reproductive History Testicular Surgery: No - Psycho Social/Smoking Cessation Hx Smoking History: Former smoker Have you smoked in the past 12 months: No If you are a former smoker, when did you quit?: 2010 'Breaking Loose' booklet given: 06/24/15 Hx Alcohol Use: Yes Drug/Substance Use Hx: Yes Substance Use Type: Alcohol, Cocaine, Opiates ([facility] 09/10/17 percocet nasal fracture) Hx Substance Use Treatment: Yes Review of Systems - Review of Systems Comments:: 05/04/19 00:01 GENERAL/CONSTITUTIONAL: endorses fever and chills. Denies diaphoresis, generalized weakness, malaise, loss of appetite, weight change HEAD, EYES, EARS, NOSE AND THROAT: denies rhinorrhea, nasal congestion, throat pain, throat swelling, difficulty swallowing, mouth swelling, ear pain, eye pain , visual changes NEUROLOGIC: denies headache, focal weakness or paresthesias, dizziness, unsteady gait, seizure, mental status changes, bladder or bowel incontinence CARDIOVASCULAR: endorses sharp 7/10 chest pain. Denies syncope, palpitations, irregular heart rate, lightheadedness, peripheral edema RESPIRATORY: endorses cough, shortness of breath, and dyspnea with exertion. Denies orthopnea, wheezing, stridor, hemoptysis GASTROINTESTINAL: endorses mild RUQ abdominal pain, mild abdominal distension, nausea w/ 6 episodes of vomiting. Denies diarrhea, constipation, melena, hematochezia GENITOURINARY: denies dysuria, frequency, urgency, hesitancy, hematuria, flank pain, genital pain MUSCULOSKELETAL: denies myalgia, arthralgia, joint swelling, back pain, neck pain SKIN: denies rash, itching, pallor HEMATOLOGIC/IMMUNOLOGIC: denies easy bleeding, easy bruising, lymphadenopathy, frequent infections ENDOCRINE: denies unexplained weight gain, unexplained weight loss, heat intolerance, cold intolerance PSYCHIATRIC: denies anxiety, depression, suicidal or homicidal ideation, hallucinations *Physical Exam - Physical Exam 05/04/19 02:17 GENERAL: Awake, alert, and fully oriented, in no acute distress. HEAD: Normal with no signs of trauma. EYES: Pupils equal, round and reactive to light, extraocular movements intact, sclera anicteric, conjunctiva clear. No lid lag. EARS, NOSE, THROAT: Ears normal, nares patent, oropharynx clear without exudates. NECK: Normal range of motion, supple without lymphadenopathy, JVD, or masses. LUNGS: Coarse lungs sounds on the right side, worse at the bases HEART: Regular rate and rhythm, normal S1 and S2 without murmur, rub or gallop. ABDOMEN: Soft, mild RUQ tenderness, mildly distended, normoactive bowel sounds, negative guarding, negative rebound MUSCULOSKELETAL: Normal range of motion at all joints. No bony deformities or tenderness. No CVA tenderness. UPPER EXTREMITIES: 2+ pulses, warm, well-perfused. No cyanosis. No clubbing. Cap refill <2 seconds. No peripheral edema. LOWER EXTREMITIES: 2+ pulses, warm, well-perfused. No calf tenderness. No peripheral edema. NEUROLOGICAL: Cranial nerves II-XII intact. Normal speech. Normal gait. PSYCHIATRIC: Cooperative. Good eye contact. Appropriate mood and affect. SKIN: Warm, dry, normal turgor, no rashes or lesions noted. ED Treatment Course - LABORATORY CBC & Chemistry Diagram: 05/03/19 23:40 05/03/19 23:40 Medical Decision Making - Medical Decision Making 05/04/19 00:30 Concern for ACS v PNA considering recent history of PNA. - CBC, CMP - EKG, trop - CXR - likely admit 05/04/19 00:45 EKG with normal sinus at 85 bpm, LVH, incomplete RBBB, QTc 485. Appears similar to prior. 05/04/19 01:46 WBC 12. CXR concerning for R sided PNA. Will admit for PNA. Discharge - Discharge Information Problems reviewed: Yes Clinical Impression/Diagnosis: PNA (pneumonia) Qualifiers: Laterality: right - Follow up/Referral - Patient Discharge Instructions - Post Discharge Activity
[2019-05-04] MEDS ORDERED: METOCLOPRAMIDE HCL INJECTION 10 MG/2 ML VIAL IVPB ONE (00:02)
[2019-05-04] MEDS ORDERED: ACETAMINOPHEN 1000 MG/100 ML VIAL (NON FORMULARY) IVPB ONE (00:02)
[2019-05-04 00:04] VITALS: BMI 31.8
[2019-05-04] MEDS ORDERED: ACETAMINOPHEN INJECTION 100 ML IVPB ONE (00:08)
[2019-05-04] MEDS ORDERED: METOCLOPRAMIDE HCL INJECTION 10 MG/2 ML VIAL ONE (00:08)
[2019-05-04 00:17] LABS: BASO % 0.9 % (0-2.0); EOS % 2.4 % (0-4.5); HEMATOCRIT 44.5 % (35.4-49); HEMOGLOBIN 14.5 GM/dL (11.7-16.9); LYMPH % 23.1 % (8-40); MCH 28.6 pg (25.7-33.7); MCHC 32.5 g/dl (32.0-35.9); MEAN CELL VOLUME 87.8 fl (80-96); MEAN PLT VOLUME 8.9 fl (7.5-11.1); NEUT % 64.6 % (42.8-82.8); PLATELET COUNT 315 K/MM3 (134-434); RBC 5.07 M/mm3 (4.00-5.60); RDW 14.2 % (11.9-15.9)
[2019-05-04] MEDS ORDERED: CEFTRIAXONE 1 GM in DEXTROSE 5%-WATER - 50 ML IVPB ONE (00:33)
[2019-05-04] MEDS ORDERED: CEFTRIAXONE 1 GM/50 ML BAG ONE (00:41)
[2019-05-04 00:47] LABS: BLOOD UREA NITROGEN 16.1 mg/dL (7-18); CREATININE 1.2 mg/dL (0.55-1.3); GLUCOSE,RANDOM 136 mg/dL (74-106)
[2019-05-04 00:48] LABS: ALBUMIN 3.4 g/dl (3.4-5.0); ALK PHOS 139 U/L (45-117); ANION GAP 6 MMOL/L (8-16); BILIRUBIN,TOTAL 0.9 mg/dL (0.2-1); CALCIUM 9.5 mg/dL (8.5-10.1); CHLORIDE 110 mmol/L (98-107); CO2 26 mmol/L (21-32); POTASSIUM 4.1 mmol/L (3.5-5.1); SGOT/AST 24 U/L (15-37); SGPT/ALT 85 U/L (13-61); SODIUM 143 mmol/L (136-145); TOT PROT 6.6 g/dl (6.4-8.2)
--- NOTE | 2019-05-04 03:08 | HP ---
<Catrina Durand - Last Filed: 05/04/19 05:38> CHIEF COMPLAINT: PCP: HISTORY OF PRESENT ILLNESS: 58 yo M PMH COPD, CHF, HTN, [place] in 2006, CAD (s/p stent 2010), HLD, R sided pneumonia last week diagnosed at [facility], presented from [facility] for SOB. Pt states that he was recently treated for the pneumonia at [facility] but for the past 2 days felt the same chest pain returning. Pt states that the pain is similar to what he felt last week when he had pneumonia. he endorses a productive cough and states it feels like he has to cough up a rock. he endorses subjective fever and chills. Pt states he was prescribed medication from [facility] for the pneumonia. Pt states he feels the pain is worse when he breaths. Pt was in [facility] for alcohol and cocaine detox. ER course was notable for: (1)CXR: possible b/l pneumonia, L> R (2)cbc, cmp (3)ceftriaxone PAST MEDICAL HISTORY: see above PAST SURGICAL HISTORY: cardiac stent Social History: Smoking: smoked in pst Alcohol: Alcohol: first use age 14 y, last use yesterday, 1/2 gallon daily. No history of blackout or seizures. Cocaine: first use age 28 y, last use 2 days ago, twice per week, $1000/week Allergies No Known Allergies Allergy (Verified 05/01/19 12:19) HOME MEDICATIONS: Home Medications Medication Instructions Recorded Mirtazapine [Remeron -] 30 mg PO HS 03/27/18 Albuterol Sulfate Inhaler - 2 inh PO Q4H PRN #1 inhaler 03/29/18 [Ventolin HFA Inhaler -] Amlodipine Besylate [Norvasc -] 10 mg PO DAILY #14 tablet 03/29/18 Atorvastatin Ca [Lipitor] 80 mg PO HS #30 tablet 03/29/18 Hydrochlorothiazide [Hctz -] 25 mg PO DAILY #14 tablet 03/29/18 Lisinopril [Prinivil] 20 mg PO DAILY #14 tablet 03/29/18 Nitroglycerin Sublingual 0.4 mg SL PRN PRN #10 tab 03/29/18 [Nitrostat -] Aspirin Coated [Ecotrin -] 81 mg PO DAILY #30 tablet.ec 03/30/18 Fluticasone/Salmeterol [Advair 1 each IH BID #1 blst.w.dev 03/30/18 250-50 Diskus] Isosorbibe Dinit/Hydralazine 1 each PO BID 30 Days #60 tablet 03/30/18 [Bidil Tablet] Tiotropium [employer] [Spiriva] 1 inh PO DAILY #1 canister 03/30/18 Clonazepam [Klonopin] 1 mg PO DAILY 05/04/19 Zolpidem Tartrate [Ambien] 10 mg PO DAILY 05/04/19 REVIEW OF SYSTEMS CONSTITUTIONAL: Present: fever, chills, generalized weakness Absent: diaphoresis, malaise, loss of appetite, weight change HEENT: Absent: rhinorrhea, nasal congestion, throat pain, throat swelling, difficulty swallowing, mouth swelling, ear pain, eye pain, visual changes CARDIOVASCULAR: Present: chest pin Absent: syncope, palpitations, irregular heart rate, lightheadedness, peripheral edema RESPIRATORY: Present: cough Absent: shortness of breath, dyspnea with exertion, orthopnea, wheezing, stridor, hemoptysis GASTROINTESTINAL: Present: abdominal pain, nausea, diarrhea Absent: abdominal distension, vomiting, diarrhea, constipation, melena, hematochezia GENITOURINARY: Absent: dysuria, frequency, urgency, hesitancy, hematuria, flank pain, genital pain MUSCULOSKELETAL: Absent: myalgia, arthralgia, joint swelling, back pain, neck pain SKIN: Absent: rash, itching, pallor HEMATOLOGIC/IMMUNOLOGIC: Absent: easy bleeding, easy bruising, lymphadenopathy, frequent infections ENDOCRINE: Absent: unexplained weight gain, unexplained weight loss, heat intolerance, cold intolerance NEUROLOGIC: Absent: headache, focal weakness or paresthesias, dizziness, unsteady gait, seizure, mental status changes, bladder or bowel incontinence PSYCHIATRIC: Absent: anxiety, depression, suicidal or homicidal ideation, hallucinations. PHYSICAL EXAMINATION Vital Signs - 24 hr 05/03/19 22:55 Temperature 97 F L Pulse Rate 93 H Respiratory 22 H Rate Blood Pressure 118/79 O2 Sat by Pulse 97 Oximetry (%) GENERAL: Awake, alert, and fully oriented, in no acute distress. HEAD: Normal with no signs of trauma. EYES: Pupils equal, round and reactive to light, extraocular movements intact, sclera anicteric, conjunctiva clear. No lid lag. EARS, NOSE, THROAT: Ears normal, nares patent, oropharynx clear without exudates. Moist mucous membranes. NECK: Normal range of motion, supple without lymphadenopathy, JVD, or masses. LUNGS: Breath sounds equal, clear to auscultation bilaterally. No wheezes, and no crackles. No accessory muscle use. HEART: Regular rate and rhythm, normal S1 and S2 without murmur, rub or gallop. ABDOMEN: Soft, nontender, not distended, normoactive bowel sounds, no guarding, no rebound, no masses. No hepatomegaly or splenomegaly. MUSCULOSKELETAL: Normal range of motion at all joints. No bony deformities or tenderness. No CVA tenderness. UPPER EXTREMITIES: 2+ pulses, warm, well-perfused. No cyanosis. No clubbing. No peripheral edema. LOWER EXTREMITIES: 2+ pulses, warm, well-perfused. No calf tenderness. No peripheral edema. NEUROLOGICAL: Cranial nerves II-XII intact. Normal speech. Normal gait. PSYCHIATRIC: Cooperative. Good eye contact. Appropriate mood and affect. SKIN: Warm, dry, normal turgor, no rashes or lesions noted, normal capillary refill. Laboratory Results - last 24 hr 05/03/19 05/03/19 05/03/19 23:40 23:40 23:40 WBC 12.0 H RBC 5.07 Hgb 14.5 Hct 44.5 MCV 87.8 MCH 28.6 MCHC 32.5 RDW 14.2 Plt Count 315 MPV 8.9 Absolute Neuts (auto) 7.8 Neutrophils % 64.6 Lymphocytes % 23.1 Monocytes % 9.0 Eosinophils % 2.4 Basophils % 0.9 Nucleated RBC % 0 Sodium 143 Potassium 4.1 Chloride 110 H Carbon Dioxide 26 Anion Gap 6 L BUN 16.1 Creatinine 1.2 Est GFR (CKD-EPI)AfAm 76.79 Est GFR (CKD-EPI)NonAf 66.26 Random Glucose 136 H Calcium 9.5 Total Bilirubin 0.9 AST 24 ALT 85 H Alkaline Phosphatase 139 H Creatine Kinase 199 Creatine Kinase Index 0.8 CK-MB (CK-2) 1.6 Troponin I < 0.02 B-Natriuretic Peptide 103.9 Total Protein 6.6 Albumin 3.4 Influenza A (Rapid) Influenza B (Rapid) 05/04/19 01:40 WBC RBC Hgb Hct MCV MCH MCHC RDW Plt Count MPV Absolute Neuts (auto) Neutrophils % Lymphocytes % Monocytes % Eosinophils % Basophils % Nucleated RBC % Sodium Potassium Chloride Carbon Dioxide Anion Gap BUN Creatinine Est GFR (CKD-EPI)AfAm Est GFR (CKD-EPI)NonAf Random Glucose Calcium Total Bilirubin AST ALT Alkaline Phosphatase Creatine Kinase Creatine Kinase Index CK-MB (CK-2) Troponin I B-Natriuretic Peptide Total Protein Albumin Influenza A (Rapid) Negative Influenza B (Rapid) Negative CT chest : : Severe bullous emphysema predominating in the right upper lobe. ASSESSMENT/PLAN: 58 yo M PMH COPD, CHF, HTN, [place] in 2006, CAD (s/p stent 2010), HLD, R sided pneumonia last week diagnosed at [facility], presented from [facility] for SOB. Pt is admitted for pneumonia Chest pain, may be 2/2 resolving L Pneumonia- healthcare associated - CXR reviewed - CT chest , please see above -c/w cefriaxone , doxy -IVF - sputum, blood cultures -CT chest RUQ pain, r/o cholelithiasis - RUQ u/s -elevated Alk phos , ALT COPD - duonebs - inhalers as needed -incentive spirometer -PFTs and sleep study outpt CAD - asa HTN - continue home antihypertensives DVT ppx: heparin Dispo: admit to medicine ATTENDING PHYSICIAN STATEMENT I saw and evaluated the patient. I reviewed the resident's note and discussed the case with the resident. I agree with the resident's findings and plan as documented. SUBJECTIVE: OBJECTIVE: ASSESSMENT AND PLAN: <Elbert Du - Last Filed: 05/04/19 06:04> CHIEF COMPLAINT: PCP: HISTORY OF PRESENT ILLNESS: ER course was notable for: (1) (2) (3) Recent Travel: PAST MEDICAL HISTORY: PAST SURGICAL HISTORY: Social History: Smoking: Alcohol: Drugs: Allergies No Known Allergies Allergy (Verified 05/01/19 12:19) HOME MEDICATIONS: Home Medications Medication Instructions Recorded Mirtazapine [Remeron -] 30 mg PO HS 03/27/18 Albuterol Sulfate Inhaler - 2 inh PO Q4H PRN #1 inhaler 03/29/18 [Ventolin HFA Inhaler -] Amlodipine Besylate [Norvasc -] 10 mg PO DAILY #14 tablet 03/29/18 Atorvastatin Ca [Lipitor] 80 mg PO HS #30 tablet 03/29/18 Hydrochlorothiazide [Hctz -] 25 mg PO DAILY #14 tablet 03/29/18 Lisinopril [Prinivil] 20 mg PO DAILY #14 tablet 03/29/18 Nitroglycerin Sublingual 0.4 mg SL PRN PRN #10 tab 03/29/18 [Nitrostat -] Aspirin Coated [Ecotrin -] 81 mg PO DAILY #30 tablet.ec 03/30/18 Fluticasone/Salmeterol [Advair 1 each IH BID #1 blst.w.dev 03/30/18 250-50 Diskus] Isosorbibe Dinit/Hydralazine 1 each PO BID 30 Days #60 tablet 03/30/18 [Bidil Tablet] Tiotropium [employer] [Spiriva] 1 inh PO DAILY #1 canister 03/30/18 Clonazepam [Klonopin] 1 mg PO DAILY 05/04/19 Zolpidem Tartrate [Ambien] 10 mg PO DAILY 05/04/19 REVIEW OF SYSTEMS CONSTITUTIONAL: Absent: fever, chills, diaphoresis, generalized weakness, malaise, loss of appetite, weight change HEENT: Absent: rhinorrhea, nasal congestion, throat pain, throat swelling, difficulty swallowing, mouth swelling, ear pain, eye pain, visual changes CARDIOVASCULAR: Absent: chest pain, syncope, palpitations, irregular heart rate, lightheadedness , peripheral edema RESPIRATORY: Absent: cough, shortness of breath, dyspnea with exertion, orthopnea, wheezing, stridor, hemoptysis GASTROINTESTINAL: Absent: abdominal pain, abdominal distension, nausea, vomiting, diarrhea, constipation, melena, hematochezia GENITOURINARY: Absent: dysuria, frequency, urgency, hesitancy, hematuria, flank pain, genital pain MUSCULOSKELETAL: Absent: myalgia, arthralgia, joint swelling, back pain, neck pain SKIN: Absent: rash, itching, pallor HEMATOLOGIC/IMMUNOLOGIC: Absent: easy bleeding, easy bruising, lymphadenopathy, frequent infections ENDOCRINE: Absent: unexplained weight gain, unexplained weight loss, heat intolerance, cold intolerance NEUROLOGIC: Absent: headache, focal weakness or paresthesias, dizziness, unsteady gait, seizure, mental status changes, bladder or bowel incontinence PSYCHIATRIC: Absent: anxiety, depression, suicidal or homicidal ideation, hallucinations. PHYSICAL EXAMINATION Vital Signs - 24 hr 05/03/19 22:55 Temperature 97 F L Pulse Rate 93 H Respiratory 22 H Rate Blood Pressure 118/79 O2 Sat by Pulse 97 Oximetry (%) GENERAL: Awake, alert, and fully oriented, in no acute distress. HEAD: Normal with no signs of trauma. EYES: Pupils equal, round and reactive to light, extraocular movements intact, sclera anicteric, conjunctiva clear. No lid lag. EARS, NOSE, THROAT: Ears normal, nares patent, oropharynx clear without exudates. Moist mucous membranes. NECK: Normal range of motion, supple without lymphadenopathy, JVD, or masses. LUNGS: Breath sounds equal, clear to auscultation bilaterally. No wheezes, and no crackles. No accessory muscle use. HEART: Regular rate and rhythm, normal S1 and S2 without murmur, rub or gallop. ABDOMEN: Soft, nontender, not distended, normoactive bowel sounds, no guarding, no rebound, no masses. No hepatomegaly or splenomegaly. MUSCULOSKELETAL: Normal range of motion at all joints. No bony deformities or tenderness. No CVA tenderness. UPPER EXTREMITIES: 2+ pulses, warm, well-perfused. No cyanosis. No clubbing. No peripheral edema. LOWER EXTREMITIES: 2+ pulses, warm, well-perfused. No calf tenderness. No peripheral edema. NEUROLOGICAL: Cranial nerves II-XII intact. Normal speech. Normal gait. PSYCHIATRIC: Cooperative. Good eye contact. Appropriate mood and affect. SKIN: Warm, dry, normal turgor, no rashes or lesions noted, normal capillary refill. Laboratory Results - last 24 hr 05/03/19 05/03/19 05/03/19 23:40 23:40 23:40 WBC 12.0 H RBC 5.07 Hgb 14.5 Hct 44.5 MCV 87.8 MCH 28.6 MCHC 32.5 RDW 14.2 Plt Count 315 MPV 8.9 Absolute Neuts (auto) 7.8 Neutrophils % 64.6 Lymphocytes % 23.1 Monocytes % 9.0 Eosinophils % 2.4 Basophils % 0.9 Nucleated RBC % 0 Sodium 143 Potassium 4.1 Chloride 110 H Carbon Dioxide 26 Anion Gap 6 L BUN 16.1 Creatinine 1.2 Est GFR (CKD-EPI)AfAm 76.79 Est GFR (CKD-EPI)NonAf 66.26 Random Glucose 136 H Calcium 9.5 Total Bilirubin 0.9 AST 24 ALT 85 H Alkaline Phosphatase 139 H Creatine Kinase 199 Creatine Kinase Index 0.8 CK-MB (CK-2) 1.6 Troponin I < 0.02 B-Natriuretic Peptide 103.9 Total Protein 6.6 Albumin 3.4 Influenza A (Rapid) Influenza B (Rapid) 05/04/19 01:40 WBC RBC Hgb Hct MCV MCH MCHC RDW Plt Count MPV Absolute Neuts (auto) Neutrophils % Lymphocytes % Monocytes % Eosinophils % Basophils % Nucleated RBC % Sodium Potassium Chloride Carbon Dioxide Anion Gap BUN Creatinine Est GFR (CKD-EPI)AfAm Est GFR (CKD-EPI)NonAf Random Glucose Calcium Total Bilirubin AST ALT Alkaline Phosphatase Creatine Kinase Creatine Kinase Index CK-MB (CK-2) Troponin I B-Natriuretic Peptide Total Protein Albumin Influenza A (Rapid) Negative Influenza B (Rapid) Negative ASSESSMENT/PLAN: Visit type - Emergency Visit Emergency Visit: Yes ED Registration Date: 05/04/19 Care time: The patient presented to the Emergency Department on the above date and was hospitalized for further evaluation of their emergent condition. - New Patient This patient is new to me today: Yes Date on this admission: 05/04/19 - Critical Care Critical Care patient: No ATTENDING PHYSICIAN STATEMENT I saw and evaluated the patient. I reviewed the resident's note and discussed the case with the resident. I agree with the resident's findings and plan as documented. SUBJECTIVE: 58 yo M PMH COPD, CHF, HTN, [place] in 2006, CAD (s/p stent 2010), HLD, recently treated for R sided pneumonia at [facility] presented from [facility] with shortness of breath, cough with yellow sputum, subjective fever and chills. Patient is very somnolent and not cooperative with history and physical exam. Upon asking question he answers that he has pneumonia and its getting worse. he also c/o left sided chest pain- pleuritic, non radiating, on and off. After coming to ED CXR was done - questionable bilateral infiltrates so endorsed fro admission Ct chest was done which didn't show any infiltrates. Showed R upper lobe bullous emphysema Last Vital Signs Temp Pulse Resp BP Pulse Ox 97 F L 93 H 22 H 118/79 97 05/03/19 22:55 05/03/19 22:55 05/03/19 22:55 05/03/19 22:55 05/03/19 22:55 General Appearance: Not in acute distress, somnolent, snoring HEENT: positive: EOMI, SARA, Normal Voice, Hearing Grossly Normal. Respiratory/Chest:Right sided decreased breath sounds, B/l rhonchi anterior, Cardiovascular: positive: Regular Rhythm, Regular Rate, S1, S2. negative: Edema , Murmur Gastrointestinal/Abdominal: positive: Normal Bowel Sounds, Flat, Soft. RUQ tenderness Extremity: negative: Swelling Integumentary: positive: Normal Color. 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 negative: Numbness, Sensory Deficit, Confused, Disoriented ASSESSMENT AND PLAN: worsening cough with sputum subjective fever, chills possible resolving pneumonia - r/o HCAP however CT chest didnt show any infiltrate R upper lobe bullous emphysema Chest pain r/o ACS COPD, CHF, HTN, [place] in 2006, CAD (s/p stent 2010), HLD COPD not in exacerbation RUQ pain with elevated Alkphos and AST r/o gallblader pathology Admit to Floor CT chest done. report noted Antibiotics Ceftrixone and doxycycline sputum culture procalcitonin RUQ US Continue home medications for above mentioned commodities DVT ppx
[2019-05-04] MEDS ORDERED: ALBUTEROL SO4 HFA INHALER IH PRN (03:28)
[2019-05-04] MEDS ORDERED: NITROGLYCERIN SUBLINGUAL 1/150 0.4 MG TAB SL PRN (03:28)
[2019-05-04] MEDS: SODIUM CHLORIDE 1,000 ML IV SCH ×2 (04:00→09:50)
[2019-05-04] MEDS ORDERED: DOXYCYCLINE INJECTION 100 MG in DEXTROSE 5%-WATER - 100 ML IVPB ONE (04:57)
[2019-05-04] MEDS ORDERED: DOXYCYCLINE HYCLATE 100 MG VIAL ONE (05:38)
[2019-05-04] MEDS ORDERED: levoFLOXacin 750 MG TABLET PO SCH (06:00)
[2019-05-04] MEDS ORDERED: HEPARIN NA (PORCINE) 5,000 UNITS/ML 1ML VIAL ONE (06:19)
[2019-05-04] MEDS: HEPARIN NA (PORCINE) 5,000 UNITS/ML 1ML VIAL SQ SCH ×2 (06:22→13:17)
[2019-05-04 09:08] LABS: BASO % 0.8 % (0-2.0); EOS % 2.8 % (0-4.5); HEMATOCRIT 43.9 % (35.4-49); HEMOGLOBIN 14.5 GM/dL (11.7-16.9); MCH 28.9 pg (25.7-33.7); MCHC 33.1 g/dl (32.0-35.9); MEAN CELL VOLUME 87.4 fl (80-96); MONO % 8.2 % (3.8-10.2); NEUT % 59.2 % (42.8-82.8); PLATELET COUNT 298 K/MM3 (134-434); RBC 5.03 M/mm3 (4.00-5.60); RDW 14.4 % (11.9-15.9); WHITE BLOOD COUNT 10.2 K/mm3 (4.0-10.0)
[2019-05-04 09:36] LABS: ALBUMIN 3.2 g/dl (3.4-5.0); BILIRUBIN,TOTAL 1.1 mg/dL (0.2-1); BLOOD UREA NITROGEN 13.6 mg/dL (7-18); CALCIUM 8.7 mg/dL (8.5-10.1); CREATININE 1.1 mg/dL (0.55-1.3); MAGNESIUM 2.1 mg/dL (1.8-2.4); PHOSPHOROUS 3.4 mg/dL (2.5-4.9); POTASSIUM 4.1 mmol/L (3.5-5.1); TOT PROT 6.3 g/dl (6.4-8.2)
[2019-05-04] MEDS ORDERED: BUDESONIDE/FORMETEROL FUMARATE 80/4.5 mcg INHALER IH SCH (10:00)
[2019-05-04] MEDS ORDERED: FOLIC ACID 1 MG TABLET (FP) PO SCH (10:00)
[2019-05-04] MEDS ORDERED: ASPIRIN COATED 81 MG TABLET.EC PO SCH (10:00)
[2019-05-04] MEDS ORDERED: HYDROCHLOROTHIAZIDE 25 MG TABLET (FP) PO SCH (10:00)
[2019-05-04] MEDS ORDERED: amLODIPine BESYLATE 10 MG TABLET (FP) PO SCH (10:00)
[2019-05-04] MEDS ORDERED: LISINOPRIL 20 MG TABLET (FP) PO SCH (10:00)
[2019-05-04] MEDS ORDERED: MULTIVITAMINS (DAILY MVI) TABLET (FP) PO SCH (10:00)
[2019-05-04] MEDS ORDERED: THIAMINE HCL 100 MG TABLET (FP) PO SCH (10:00)
[2019-05-04] MEDS ORDERED: TIOTROPIUM BROMIDE 2.5 MCG (SPIRIVA) RESPIMAT INHALER IH SCH (10:00)
[2019-05-04] MEDS ORDERED: PIPERACILLIN/TAZOB 3.375 GM 3.375 GM in DEXTROSE 5%-WATER - 50 ML IVPB SCH (10:00)
[2019-05-04] MEDS ORDERED: [UNRECOGNIZED DRUG - OTHER] PO SCH (10:00)
[2019-05-04 11:24] VITALS: PULSE 96
[2019-05-04] MEDS ORDERED: chlordiazePOXIDE HCL 25 MG CAPSULE PO SCH (13:00)
--- NOTE | 2019-05-04 14:52 | HOSP ---
Subjective - Review of Symptoms Events since last encounter: Patient is feeling better , no new complains. No withdrawel symptoms. Vital Signs Temperature 97.7 F 05/04/19 10:00 Pulse Rate 96 H 05/04/19 10:00 Respiratory Rate 20 05/04/19 10:00 Blood Pressure 102/69 05/04/19 10:00 O2 Sat by Pulse Oximetry (%) 96 05/04/19 09:00 GENERAL: The patient is awake, alert, and fully oriented, in no acute distress. HEAD: Normal with no signs of trauma. EYES: PERRL, extraocular movements intact, sclera anicteric, conjunctiva clear. ENT: Ears normal, oropharynx clear without exudates, moist mucous membranes. NECK: Trachea midline, full range of motion, supple. LUNGS: Breath sounds equal, clear to auscultation bilaterally, no wheezes, no crackles, no accessory muscle use. HEART: Regular rate and rhythm, S1, S2 without murmur, rub or gallop. ABDOMEN: Soft, nontender, nondistended, normoactive bowel sounds, no guarding, no rebound, no hepatosplenomegaly, no masses. EXTREMITIES: 2+ pulses, warm, well-perfused, no edema. NEUROLOGICAL: Cranial nerves II through XII grossly intact. Normal speech, gait not observed. PSYCH: Normal mood, normal affect. SKIN: Warm, dry, normal turgor, no rashes or lesions noted CBCD WBC 10.2 K/mm3 (4.0-10.0) H 05/04/19 07:44 RBC 5.03 M/mm3 (4.00-5.60) 05/04/19 07:44 Hgb 14.5 GM/dL (11.7-16.9) 05/04/19 07:44 Hct 43.9 % (35.4-49) 05/04/19 07:44 MCV 87.4 fl (80-96) 05/04/19 07:44 MCHC 33.1 g/dl (32.0-35.9) 05/04/19 07:44 RDW 14.4 % (11.9-15.9) 05/04/19 07:44 Plt Count 298 K/MM3 (134-434) 05/04/19 07:44 MPV 9.0 fl (7.5-11.1) 05/04/19 07:44 CMP Sodium 142 mmol/L (136-145) 05/04/19 07:44 Potassium 4.1 mmol/L (3.5-5.1) 05/04/19 07:44 Chloride 107 mmol/L (98-107) 05/04/19 07:44 Carbon Dioxide 27 mmol/L (21-32) 05/04/19 07:44 Anion Gap 7 MMOL/L (8-16) L 05/04/19 07:44 BUN 13.6 mg/dL (7-18) 05/04/19 07:44 Creatinine 1.1 mg/dL (0.55-1.3) 05/04/19 07:44 Random Glucose 113 mg/dL (74-106) H 05/04/19 07:44 Calcium 8.7 mg/dL (8.5-10.1) 05/04/19 07:44 Total Bilirubin 1.1 mg/dL (0.2-1) H 05/04/19 07:44 AST 21 U/L (15-37) 05/04/19 07:44 ALT 70 U/L (13-61) H 05/04/19 07:44 Alkaline Phosphatase 121 U/L (45-117) H 05/04/19 07:44 Total Protein 6.3 g/dl (6.4-8.2) L 05/04/19 07:44 Albumin 3.2 g/dl (3.4-5.0) L 05/04/19 07:44 CARDIAC ENZYMES Creatine Kinase 199 U/L (26-308) 05/03/19 23:40 Troponin I 0.02 ng/ml (0.00-0.05) 05/04/19 07:44 Current Medications Generic Name Dose Route Start Last Admin Trade Name Freq PRN Reason Stop Dose Admin Albuterol Sulfate 2 puff 05/04/19 03:28 Ventolin Hfa Inhaler - IH Q4H PRN ASTHMA Amlodipine Besylate 10 mg 05/04/19 10:00 05/04/19 09:20 Norvasc - PO 10 mg DAILY LOIS Administration Aspirin 81 mg 05/04/19 10:00 05/04/19 09:20 Ecotrin - PO 81 mg DAILY OLIS Administration Atorvastatin Calcium 80 mg 05/04/19 22:00 Lipitor - PO HS LOIS Budesonide/Formoterol Fumarate 2 puff 05/04/19 10:00 05/04/19 09:22 Symbicort 80/4.5mcg - IH 2 puff BID [facility] Administration Folic Acid 1 mg 05/04/19 10:00 05/04/19 09:20 Folic Acid - PO 1 mg DAILY [facility] Administration Heparin Sodium (Porcine) 5,000 unit 05/04/19 06:00 05/04/19 13:17 Heparin - SQ 5,000 unit TID [facility] Administration Hydrochlorothiazide 25 mg 05/04/19 10:00 05/04/19 09:20 Hctz - PO 25 mg DAILY [facility] Administration Sodium Chloride 1,000 mls @ 100 mls/hr 05/04/19 03:15 05/04/19 09:50 Normal Saline - IV 100 mls/hr ASDIR [facility] Administration Levofloxacin 750 mg 05/04/19 06:00 05/04/19 06:22 Levaquin PO 750 mg DAILY@0600 [facility] Administration Lisinopril 20 mg 05/04/19 10:00 05/04/19 09:20 Prinivil PO 20 mg DAILY [facility] Administration Multivitamins/Minerals/Vitamin C 1 tab 05/04/19 10:00 05/04/19 09:20 Tab-A-Vit - PO 1 tab DAILY [facility] Administration Nitroglycerin 0.4 mg 05/04/19 03:28 Nitrostat - SL PRN PRN FOR CHEST PAIN Non-Formulary Medication 1 each 05/04/19 10:00 Isosorbibe Dinit/Hydralazine [Bidil Tablet] PO BID [facility] Thiamine HCl 100 mg 05/04/19 10:00 05/04/19 09:20 Vitamin B1 - PO 100 mg DAILY [facility] Administration Tiotropium [place] 2 puff 05/04/19 10:00 05/04/19 09:21 Spiriva Respimat IH 2 puff DAILY [facility] Administration Home Medications Medication Instructions Recorded Mirtazapine [Remeron -] 30 mg PO HS 03/27/18 Albuterol Sulfate Inhaler - 2 inh PO Q4H PRN #1 inhaler 03/29/18 [Ventolin HFA Inhaler -] Amlodipine Besylate [Norvasc -] 10 mg PO DAILY #14 tablet 03/29/18 Atorvastatin Ca [Lipitor] 80 mg PO HS #30 tablet 03/29/18 Hydrochlorothiazide [Hctz -] 25 mg PO DAILY #14 tablet 03/29/18 Lisinopril [Prinivil] 20 mg PO DAILY #14 tablet 03/29/18 Nitroglycerin Sublingual 0.4 mg SL PRN PRN #10 tab 03/29/18 [Nitrostat -] Aspirin Coated [Ecotrin -] 81 mg PO DAILY #30 tablet.ec 03/30/18 Fluticasone/Salmeterol [Advair 1 each IH BID #1 blst.w.dev 03/30/18 250-50 Diskus] Isosorbibe Dinit/Hydralazine 1 each PO BID 30 Days #60 tablet 03/30/18 [Bidil Tablet] Tiotropium [employer] [Spiriva] 1 inh PO DAILY #1 canister 03/30/18 Clonazepam [Klonopin] 1 mg PO DAILY 05/04/19 Zolpidem Tartrate [Ambien] 10 mg PO DAILY 05/04/19 Laboratory Tests 05/03/19 05/04/19 23:40 07:44 Troponin I < 0.[address] chest : Severe bullous emphysema predominating in the right upper lobe. ASSESSMENT/PLAN: Patient is a 58 yo M PMH COPD, CHF, HTN, [place] in 2006, CAD (s/p stent 2010), HLD, R sided pneumonia last week diagnosed at [facility], presented from [facility] for SOB. Pt is admitted for pneumonia # Acute chest pain , no further chest pain sets of trops were negative. may be due to Left Pneumonia- healthcare associated , ON IV roephin/doxy # RUQ pain, r/o cholelithiasis: RUQ u/s , elevated Alk phos , ALT # Acute COPD : on duonebs , inhalers as needed, incentive spirometer, PFTs and sleep study outpt # CAD: continue asa # HTN: continue home antihypertensives DVT ppx: heparin Physical Examination Vital Signs: Vital Signs Temperature 97.7 F 05/04/19 10:00 Pulse Rate 96 H 05/04/19 10:00 Respiratory Rate 20 05/04/19 10:00 Blood Pressure 102/69 05/04/19 10:00 O2 Sat by Pulse Oximetry (%) 96 05/04/19 09:00 Labs: CBC, BMP 05/04/19 07:44 05/04/19 07:44
[2019-05-04] MEDS ORDERED: chlordiazePOXIDE HCL 10 MG CAPSULE PO PRN (14:53)
[2019-05-04] MEDS ORDERED: CEFTRIAXONE 1 GM in DEXTROSE 5%-WATER - 50 ML IVPB SCH (15:15)
[2019-05-04] MEDS ORDERED: DEXTROSE 5%-WATER - 50 ML IVPB ONE (15:35)
[2019-05-04] MEDS ORDERED: cefTRIAXone SODIUM 1 GM VIAL ONE (15:35)
[2019-05-04 16:57] VITALS: BP 126/68; TEMP 97.8
--- NOTE | 2019-05-04 17:05 | EKG ---
Test Reason : Blood Pressure : / mmHG Vent. Rate : 085 BPM Atrial Rate : 085 BPM P-R Int : 130 ms QRS Dur : 096 ms QT Int : 408 ms P-R-T Axes : 054 000 007 degrees QTc Int : 485 ms NORMAL SINUS RHYTHM POSSIBLE LEFT ATRIAL ENLARGEMENT LEFT VENTRICULAR HYPERTROPHY NONSPECIFIC T WAVE ABNORMALITY PROLONGED QT ABNORMAL ECG WHEN COMPARED WITH ECG OF 11-SEP-2017 15:17, NONSPECIFIC T WAVE ABNORMALITY, WORSE IN ANTEROLATERAL LEADS CLINICAL CORRELATION IS RECOMMENDED Confirmed by OMID TUBBS MD ([id number]) on 05/04/2019 5:05:11 PM Referred By: Confirmed By:OMID TUBBS MD
[2019-05-04] MEDS ORDERED: PT OWN MED DRAWER 7, Y5N ONE (17:22)
[2019-05-04] MEDS ORDERED: BENZOCAINE/MENTH/CETYLPYRD CL 1 EACH LOZENGE MM PRN (17:24)
[2019-05-04] MEDS ORDERED: LORazepam 2 MG/ML SDV VIAL IVPUSH PRN (20:18)
[2019-05-04] MEDS ORDERED: ATORVASTATIN CA 80 MG TABLET (FP) PO SCH (22:00)
--- NOTE | 2019-05-05 07:54 | DS ---
Physical Exam: SUBJECTIVE: Patient seen and examined Patient signed AMA overnight. risks were explained to the patient by the resident overnight. OBJECTIVE: Vital Signs Temperature 97.8 F 05/04/19 16:53 Pulse Rate 96 H 05/04/19 16:53 Respiratory Rate 22 H 05/04/19 16:53 Blood Pressure 126/68 05/04/19 16:53 O2 Sat by Pulse Oximetry (%) 96 05/04/19 09:00 LABS Laboratory Results - last 24 hr 05/04/19 05/04/19 07:44 07:44 WBC 10.2 H RBC 5.03 Hgb 14.5 Hct 43.9 MCV 87.4 MCH 28.9 MCHC 33.1 RDW 14.4 Plt Count 298 MPV 9.0 Absolute Neuts (auto) 6.0 Neutrophils % 59.2 Lymphocytes % 29.0 D Monocytes % 8.2 Eosinophils % 2.8 Basophils % 0.8 Nucleated RBC % 0 Sodium 142 Potassium 4.1 Chloride 107 Carbon Dioxide 27 Anion Gap 7 L BUN 13.6 Creatinine 1.1 Est GFR (CKD-EPI)AfAm 85.31 Est GFR (CKD-EPI)NonAf 73.61 Random Glucose 113 H Calcium 8.7 Phosphorus 3.4 Magnesium 2.1 Total Bilirubin 1.1 H AST 21 ALT 70 H Alkaline Phosphatase 121 H Troponin I 0.02 Total Protein 6.3 L Albumin 3.[address] chest : Severe bullous emphysema predominating in the right upper lobe. HOSPITAL COURSE: Date of Admission:05/04/19 Date of Discharge: 05/05/19 Patient is a 58 yom PMHx COPD, CHF, HTN, PA in 2006, CAD (s/p stent 2010), HLD, R sided pneumonia last week diagnosed at [facility], presented from [facility] for SOB. Pt is admitted for pneumonia # Acute chest pain , no further chest pain; 2 sets of trops were negative. was suggestive that the patient has Left Pneumonia- healthcare associated , ON IV roephin/doxy # RUQ pain, r/o cholelithiasis: RUQ u/s , elevated Alk phos , ALT # Acute COPD : on duonebs , inhalers as needed, incentive spirometer, PFTs and sleep study outpt # CAD: continue asa # HTN: continue home antihypertensives DVT ppx: heparin Minutes to complete discharge: 30 Discharge Summary Problems reviewed: Yes Reason For Visit: PNEUMONIA Condition: Stable - Instructions Disposition: AGAINST MEDICAL ADVICE - Home Medications Comprehensive Discharge Medication List: Ambulatory Orders Mirtazapine [Remeron -] 30 mg PO HS 03/27/18 Albuterol Sulfate Inhaler - [Ventolin HFA Inhaler -] 2 inh PO Q4H PRN #1 inhaler 03/29/18 Amlodipine Besylate [Norvasc -] 10 mg PO DAILY #14 tablet 03/29/18 Atorvastatin Ca [Lipitor] 80 mg PO HS #30 tablet 03/29/18 Hydrochlorothiazide [Hctz -] 25 mg PO DAILY #14 tablet 03/29/18 Lisinopril [Prinivil] 20 mg PO DAILY #14 tablet 03/29/18 Nitroglycerin Sublingual [Nitrostat -] 0.4 mg SL PRN PRN #10 tab 03/29/18 Aspirin Coated [Ecotrin -] 81 mg PO DAILY #30 tablet.ec 03/30/18 Fluticasone/Salmeterol [Advair 250-50 Diskus] 1 each IH BID #1 blst.w.dev Isosorbibe Dinit/Hydralazine [Bidil Tablet] 1 each PO BID 30 Days #60 tablet 02/05 Tiotropium [place] [Spiriva] 1 inh PO DAILY #1 canister 03/30/18 Clonazepam [Klonopin] 1 mg PO DAILY 05/04/19 Zolpidem Tartrate [Ambien] 10 mg PO DAILY 05/04/19 This patient is new to me today: Yes Date on this admission: 05/05/19 Emergency Visit: No Critical Care patient: No - Discharge Referral Referred to [facility] No
[2019-05-05] MEDS ORDERED: ISOSORBIDE MONONITRATE 30 MG TAB.SR.24H (FP) PO SCH (10:00)
[2019-05-06] MEDS ORDERED: chlordiazePOXIDE 5 MG CAPSULE PO SCH (05:00)
[2019-05-07] MEDS ORDERED: chlordiazePOXIDE HCL 10 MG CAPSULE PO PRN
[2019-05-07] MEDS ORDERED: chlordiazePOXIDE HCL 10 MG CAPSULE PO SCH (05:00)
[2019-05-08] MEDS ORDERED: chlordiazePOXIDE HCL 10 MG CAPSULE PO ONE (05:00)
== END 2019-05-04 20:36 | disposition left against medical advice (07) | DRG 140 ==
LOC: JER 22:11 → JERBED 05-04 00:44 → J8W 05-04 06:29
PROVIDERS: ADMIT Internal Medicine; ATTEND Internal Medicine
DX: J43.9 Emphysema, unspecified (principal); I11.0 Hypertensive heart disease with heart failure; I50.9 Heart failure, unspecified; R10.11 Right upper quadrant pain; E78.5 Hyperlipidemia, unspecified; R74.8 Abnormal levels of other serum enzymes; F14.90 Cocaine use, unspecified, uncomplicated; R07.9 Chest pain, unspecified; F10.99 Alcohol use, unspecified with unspecified alcohol-induced disorder; I25.2 Old myocardial infarction; Z87.891 Personal history of nicotine dependence; Z95.5 Presence of coronary angioplasty implant and graft
CPT/HCPCS: 36415; 71045-TC-FY; 71250-TC; 76705-TC; 80053; 82550; 82553; 83735; 83880; 84100; 84484; 85025; 87040; 87070; 87205; 87804; 87807; 87899; 93005; 93010; 99285-25; J0131; J1644; J7030

== ENCOUNTER 2020-02-20 13:09 | Inpatient (IN) | payer OTHER ==
[2020-02-20 13:54] VITALS: BMI 32.1
[2020-02-20] MEDS ORDERED: NITROGLYCERIN SUBLINGUAL 1/150 0.4 MG TAB SL PRN (14:42)
[2020-02-20] MEDS ORDERED: MAGNESIUM HYDROX 2400MG/30ML ORAL SUSPENSION 30 ML CUP PO PRN (14:47)
[2020-02-20] MEDS ORDERED: ONDANSETRON *ODT* 4 MG TABLET SL PRN (14:47)
[2020-02-20] MEDS ORDERED: MAG HYDROX/AL HYDROX/SIMETH 30 ML UNIT-DOSE CUP PO PRN (14:47)
[2020-02-20] MEDS ORDERED: BISMUTH SUBSALICYLATE 262 MG/15 ML BTL PO PRN (14:47)
[2020-02-20] MEDS ORDERED: chlordiazePOXIDE HCL 25 MG CAPSULE PO PRN (14:47)
[2020-02-20] MEDS ORDERED: ACETAMINOPHEN 325 MG TABLET (FP) PO PRN ×2 (14:47)
[2020-02-20] MEDS ORDERED: MAGNESIUM CITRATE 300 ML BOTTLE PO PRN (14:47)
[2020-02-20] MEDS ORDERED: IBUPROFEN 400 MG TABLET (FP) PO PRN (14:47)
[2020-02-20] MEDS ORDERED: hydrALAZINE HCL 25 MG TABLET (FP) PO ONE (14:52)
[2020-02-20] MEDS: METHOCARBAMOL 500 MG TABLET PO PRN (15:14)
[2020-02-20] MEDS: hydrOXYzine PAMOATE 25 MG CAPSULE (FP) PO SCH ×2 (17:53→22:08)
[2020-02-20] MEDS: chlordiazePOXIDE HCL 25 MG CAPSULE PO SCH ×2 (17:53→22:08)
[2020-02-20] MEDS: MENTHOL/PHENOL 1 EACH UD MM PRN (17:55)
[2020-02-20 18:38] LABS: HEMATOCRIT 46.1 % (35.4-49); HEMOGLOBIN 14.5 GM/dL (11.7-16.9); MCH 27.9 pg (25.7-33.7); MCHC 31.5 g/dl (32.0-35.9); MEAN CELL VOLUME 88.8 fl (80-96); MEAN PLT VOLUME 9.3 fl (7.5-11.1); PLATELET COUNT 317 K/MM3 (134-434); RBC 5.19 M/mm3 (4.00-5.60); RDW 15.4 % (11.9-15.9); WHITE BLOOD COUNT 12.8 K/mm3 (4.0-10.0)
[2020-02-20 18:40] LABS: POTASSIUM 4.2 mmol/L (3.5-5.1)
[2020-02-20 18:43] LABS: ALBUMIN 3.3 g/dl (3.4-5.0); BLOOD UREA NITROGEN 14.2 mg/dL (7-18); CALCIUM 8.5 mg/dL (8.5-10.1)
[2020-02-20 18:46] LABS: CREATININE 1.6 mg/dL (0.55-1.3)
[2020-02-20 18:48] LABS: BILIRUBIN,TOTAL 1.3 mg/dL (0.2-1); TOT PROT 6.6 g/dl (6.4-8.2)
[2020-02-20] MEDS: ALBUTEROL SO4 HFA INHALER IH PRN (20:35)
[2020-02-20] MEDS: FLUTICASONE/SALMETEROL 100 MCG/50 MCG DISKUS IH SCH (22:08)
[2020-02-20] MEDS: ATORVASTATIN CA 80 MG TABLET (FP) PO SCH (22:08)
[2020-02-20] MEDS: THIAMINE HCL 100 MG TABLET (FP) PO SCH (22:08)
[2020-02-20] MEDS: MELATONIN 5 MG TABLETS PO SCH (22:08)
[2020-02-21] MEDS: chlordiazePOXIDE HCL 25 MG CAPSULE PO SCH ×4 (06:52→22:36)
[2020-02-21] MEDS: hydrOXYzine PAMOATE 25 MG CAPSULE (FP) PO SCH ×2 (06:53→13:16)
[2020-02-21] MEDS: MENTHOL/PHENOL 1 EACH UD MM PRN (06:55)
[2020-02-21] MEDS: ISOSORBIDE DINITRATE 10 MG TABLET PO SCH ×2 (07:06→15:18)
[2020-02-21] MEDS ORDERED: hydrOXYzine PAMOATE 25 MG CAPSULE (FP) PO PRN (12:09)
[2020-02-21] MEDS: PRENATAL VITAMINS W/ FOLIC ACID TABLET (FP) PO SCH (12:43)
[2020-02-21] MEDS: ASPIRIN COATED 81 MG TABLET.EC PO SCH (12:44)
[2020-02-21] MEDS: amLODIPine BESYLATE 10 MG TABLET (FP) PO SCH (12:45)
[2020-02-21] MEDS: LISINOPRIL 20 MG TABLET PO SCH (12:46)
[2020-02-21] MEDS: HYDROCHLOROTHIAZIDE 25 MG TABLET (FP) PO SCH (12:46)
[2020-02-21] MEDS: TIOTROPIUM BROMIDE 2.5 MCG (SPIRIVA) RESPIMAT INHALER IH SCH (12:49)
[2020-02-21] MEDS: FLUTICASONE/SALMETEROL 100 MCG/50 MCG DISKUS IH SCH ×2 (12:49→22:37)
[2020-02-21] MEDS: MIRTAZAPINE 15 MG TABLET (FP) PO SCH (22:36)
[2020-02-21] MEDS: THIAMINE HCL 100 MG TABLET (FP) PO SCH (22:36)
[2020-02-21] MEDS: ATORVASTATIN CA 80 MG TABLET (FP) PO SCH (22:36)
[2020-02-21] MEDS: MELATONIN 5 MG TABLETS PO SCH (23:34)
[2020-02-22] MEDS: ALBUTEROL SO4 HFA INHALER IH PRN ×2 (00:08→21:27)
[2020-02-22] MEDS: ISOSORBIDE DINITRATE 10 MG TABLET PO SCH ×2 (07:19→13:19)
[2020-02-22] MEDS: chlordiazePOXIDE HCL 25 MG CAPSULE PO SCH ×4 (07:19→22:04)
[2020-02-22] MEDS: METHOCARBAMOL 500 MG TABLET PO PRN (07:22)
[2020-02-22] MEDS: HYDROCHLOROTHIAZIDE 25 MG TABLET (FP) PO SCH (10:14)
[2020-02-22] MEDS: ASPIRIN COATED 81 MG TABLET.EC PO SCH (10:14)
[2020-02-22] MEDS: amLODIPine BESYLATE 10 MG TABLET (FP) PO SCH (10:14)
[2020-02-22] MEDS: LISINOPRIL 20 MG TABLET PO SCH (10:14)
[2020-02-22] MEDS: FLUTICASONE/SALMETEROL 100 MCG/50 MCG DISKUS IH SCH ×2 (10:14→22:04)
[2020-02-22] MEDS: PRENATAL VITAMINS W/ FOLIC ACID TABLET (FP) PO SCH (10:15)
[2020-02-22] MEDS: TIOTROPIUM BROMIDE 2.5 MCG (SPIRIVA) RESPIMAT INHALER IH SCH (10:16)
[2020-02-22] MEDS: MENTHOL/PHENOL 1 EACH UD MM PRN ×2 (10:17→22:12)
[2020-02-22] MEDS ORDERED: PNEUMOC 13-VAL CONJ-DIP CRM/PF 0.5 ML DISP.SYRIN IM ONE (12:00)
[2020-02-22] MEDS ORDERED: PNEUMOCOCCAL 23 VACCINE 0.5 ML VIAL IM ONE (12:00)
[2020-02-22] MEDS ORDERED: FLU VACCINE (FLULAVAL) PF 60 MCG/0.5 ML SYRINGE 2020-2021 IM ONE (12:00)
[2020-02-22] MEDS: THIAMINE HCL 100 MG TABLET (FP) PO SCH (22:04)
[2020-02-22] MEDS: ATORVASTATIN CA 80 MG TABLET (FP) PO SCH (22:04)
[2020-02-22] MEDS: MIRTAZAPINE 15 MG TABLET (FP) PO SCH (22:04)
[2020-02-22] MEDS: MELATONIN 5 MG TABLETS PO SCH (22:04)
[2020-02-23] MEDS ORDERED: chlordiazePOXIDE HCL 10 MG CAPSULE PO PRN
[2020-02-23] MEDS: ALBUTEROL SO4 HFA INHALER IH PRN ×2 (01:37→07:34)
[2020-02-23] MEDS: chlordiazePOXIDE HCL 10 MG CAPSULE PO SCH ×4 (07:00→21:59)
[2020-02-23] MEDS: ISOSORBIDE DINITRATE 10 MG TABLET PO SCH ×2 (07:00→12:50)
[2020-02-23] MEDS: TIOTROPIUM BROMIDE 2.5 MCG (SPIRIVA) RESPIMAT INHALER IH SCH (10:37)
[2020-02-23] MEDS: amLODIPine BESYLATE 10 MG TABLET (FP) PO SCH (10:37)
[2020-02-23] MEDS: HYDROCHLOROTHIAZIDE 25 MG TABLET (FP) PO SCH (10:37)
[2020-02-23] MEDS: ASPIRIN COATED 81 MG TABLET.EC PO SCH (10:37)
[2020-02-23] MEDS: FLUTICASONE/SALMETEROL 100 MCG/50 MCG DISKUS IH SCH ×2 (10:37→21:59)
[2020-02-23] MEDS: LISINOPRIL 20 MG TABLET PO SCH (10:38)
[2020-02-23] MEDS: PRENATAL VITAMINS W/ FOLIC ACID TABLET (FP) PO SCH (10:38)
[2020-02-23] MEDS: METHOCARBAMOL 500 MG TABLET PO PRN ×2 (10:41→22:29)
[2020-02-23] MEDS: predniSONE 20 MG TABLET (UD) PO SCH (12:45)
[2020-02-23] MEDS: ATORVASTATIN CA 80 MG TABLET (FP) PO SCH (21:59)
[2020-02-23] MEDS: MIRTAZAPINE 15 MG TABLET (FP) PO SCH (21:59)
[2020-02-23] MEDS: THIAMINE HCL 100 MG TABLET (FP) PO SCH (21:59)
[2020-02-23] MEDS: MELATONIN 5 MG TABLETS PO SCH (22:00)
[2020-02-24] MEDS: chlordiazePOXIDE HCL 10 MG CAPSULE PO SCH ×2 (05:41→17:47)
[2020-02-24] MEDS: METHOCARBAMOL 500 MG TABLET PO PRN (05:43)
[2020-02-24] MEDS: MENTHOL/PHENOL 1 EACH UD MM PRN ×3 (05:45→22:24)
[2020-02-24] MEDS: ISOSORBIDE DINITRATE 10 MG TABLET PO SCH ×2 (07:01→14:03)
[2020-02-24] MEDS: FLUTICASONE/SALMETEROL 100 MCG/50 MCG DISKUS IH SCH ×2 (10:38→22:24)
[2020-02-24] MEDS: amLODIPine BESYLATE 10 MG TABLET (FP) PO SCH (10:39)
[2020-02-24] MEDS: predniSONE 20 MG TABLET (UD) PO SCH (10:39)
[2020-02-24] MEDS: LISINOPRIL 20 MG TABLET PO SCH (10:39)
[2020-02-24] MEDS: TIOTROPIUM BROMIDE 2.5 MCG (SPIRIVA) RESPIMAT INHALER IH SCH (10:39)
[2020-02-24] MEDS: PRENATAL VITAMINS W/ FOLIC ACID TABLET (FP) PO SCH (10:39)
[2020-02-24] MEDS: ASPIRIN COATED 81 MG TABLET.EC PO SCH (10:39)
[2020-02-24] MEDS: HYDROCHLOROTHIAZIDE 25 MG TABLET (FP) PO SCH (10:39)
[2020-02-24 14:51] LABS: POTASSIUM 3.8 mmol/L (3.5-5.1)
[2020-02-24 14:52] LABS: BASO % 0.4 % (0-2.0); HEMATOCRIT 44.8 % (35.4-49); HEMOGLOBIN 14.1 GM/dL (11.7-16.9); LYMPH % 8.9 % (8-40); MCHC 31.4 g/dl (32.0-35.9); MEAN CELL VOLUME 89.2 fl (80-96); MONO % 5.8 % (3.8-10.2); NEUT % 83.9 % (42.8-82.8); PLATELET COUNT 273 K/MM3 (134-434); RBC 5.02 M/mm3 (4.00-5.60); RDW 15.3 % (11.9-15.9); WHITE BLOOD COUNT 15.5 K/mm3 (4.0-10.0)
[2020-02-24 14:54] LABS: CALCIUM 9.1 mg/dL (8.5-10.1)
[2020-02-24 14:55] LABS: ALBUMIN 3.4 g/dl (3.4-5.0); BLOOD UREA NITROGEN 15.2 mg/dL (7-18)
[2020-02-24] MEDS ORDERED: AZITHROMYCIN 250 MG TABLET PO ONE (14:57)
[2020-02-24 14:58] LABS: CREATININE 1.2 mg/dL (0.55-1.3)
[2020-02-24 14:59] LABS: TOT PROT 6.6 g/dl (6.4-8.2)
[2020-02-24] MEDS: MELATONIN 5 MG TABLETS PO SCH (22:24)
[2020-02-24] MEDS: THIAMINE HCL 100 MG TABLET (FP) PO SCH (22:24)
[2020-02-24] MEDS: ATORVASTATIN CA 80 MG TABLET (FP) PO SCH (22:24)
[2020-02-24] MEDS: MIRTAZAPINE 15 MG TABLET (FP) PO SCH (22:24)
[2020-02-25] MEDS: ALBUTEROL SO4 HFA INHALER IH PRN (02:24)
[2020-02-25] MEDS ORDERED: chlordiazePOXIDE HCL 10 MG CAPSULE PO ONE (05:00)
[2020-02-25] MEDS: METHOCARBAMOL 500 MG TABLET PO PRN (06:03)
[2020-02-25] MEDS: ISOSORBIDE DINITRATE 10 MG TABLET PO SCH (07:41)
[2020-02-25] MEDS ORDERED: AZITHROMYCIN 250 MG TABLET PO SCH (10:00)
[2020-02-25 10:45] LABS: BASO % 0.8 % (0-2.0); EOS % 1.2 % (0-4.5); HEMATOCRIT 43.6 % (35.4-49); HEMOGLOBIN 13.7 GM/dL (11.7-16.9); LYMPH % 12.5 % (8-40); MCH 27.6 pg (25.7-33.7); MCHC 31.3 g/dl (32.0-35.9); MEAN CELL VOLUME 88.1 fl (80-96); MEAN PLT VOLUME 9.1 fl (7.5-11.1); MONO % 5.5 % (3.8-10.2); PLATELET COUNT 289 K/MM3 (134-434); RBC 4.95 M/mm3 (4.00-5.60); WHITE BLOOD COUNT 15.3 K/mm3 (4.0-10.0)
[2020-02-25 11:37] VITALS: BP 121/99; PULSE 118; TEMP 98.2
== END 2020-02-25 10:20 | disposition home or self-care (01) | DRG 774 ==
LOC: YASAS 13:09 → Y6N 13:57
PROVIDERS: ADMIT Allergy & Immunology; ATTEND Allergy & Immunology
PROC: HZ2ZZZZ Detoxification Services for Substance Abuse Treatment (ICD-10-PCS; principal; 2020-02-20)
DX: F10.230 Alcohol dependence with withdrawal, uncomplicated (principal); F14.20 Cocaine dependence, uncomplicated; F19.282 Other psychoactive substance dependence with psychoactive substance-induced sleep disorder; F32.9 Major depressive disorder, single episode, unspecified; F39 Unspecified mood [affective] disorder; I11.0 Hypertensive heart disease with heart failure; I25.10 Atherosclerotic heart disease of native coronary artery without angina pectoris; I25.2 Old myocardial infarction; I50.9 Heart failure, unspecified; J43.9 Emphysema, unspecified; J45.909 Unspecified asthma, uncomplicated; R00.0 Tachycardia, unspecified; E78.5 Hyperlipidemia, unspecified; D72.829 Elevated white blood cell count, unspecified; R73.9 Hyperglycemia, unspecified; N17.9 Acute kidney failure, unspecified; E66.9 Obesity, unspecified; Z68.32 Body mass index [BMI] 32.0-32.9, adult; Z95.5 Presence of coronary angioplasty implant and graft; Z87.891 Personal history of nicotine dependence
CPT/HCPCS: 36415; 71046-TC-FY; 80053; 83036; 85025; 85027; 86780; 90732; C9803; G0008; G0009; Q2036; U0003

== ENCOUNTER 2021-04-26 15:42 | Inpatient (IN) | payer OTHER ==
[2021-04-26 19:11] VITALS: BMI 29.0
[2021-04-27] MEDS ORDERED: P-EPHED 60MG/TRIPROLIDI 2.5MG TABLET PO PRN (05:36)
[2021-04-27] MEDS ORDERED: guaiFENesin 200 MG/10 ML 10 ML UNIT-DOSE CUPS PO PRN (05:36)
[2021-04-27] MEDS ORDERED: MAGNESIUM HYDROX 2400MG/30ML ORAL SUSPENSION 30 ML CUP PO PRN (05:36)
[2021-04-27] MEDS ORDERED: MAGNESIUM CITRATE 300 ML BOTTLE PO PRN (05:36)
[2021-04-27] MEDS ORDERED: LOPERAMIDE HCL 2 MG CAPSULE PO PRN (05:36)
[2021-04-27] MEDS ORDERED: ACETAMINOPHEN 325 MG TABLET (FP) PO PRN (05:36)
[2021-04-27] MEDS ORDERED: MAG HYDROX/AL HYDROX/SIMETH 30 ML UNIT-DOSE CUP PO PRN (05:36)
[2021-04-27] MEDS ORDERED: NICOTINE POLACRILEX 2 MG GUM BC PRN (05:36)
[2021-04-27] MEDS: ALBUTEROL SO4 HFA INHALER IH PRN ×3 (06:53→17:48)
[2021-04-27] MEDS ORDERED: TUBERCULIN PPD 5 TU/0.1ML VIAL ID ONE (06:55)
[2021-04-27] MEDS: hydrOXYzine PAMOATE 25 MG CAPSULE (FP) PO SCH ×5 (06:55→21:13)
[2021-04-27] MEDS: NICOTINE 14 MG/24 HOURS TOPICAL PATCH TD SCH (10:04)
[2021-04-27] MEDS: PRENATAL VITAMINS W/ FOLIC ACID TABLET (FP) PO SCH (10:04)
[2021-04-27 11:55] LABS: HEMATOCRIT 42.6 % (35.4-49); HEMOGLOBIN 13.4 GM/dL (11.7-16.9); MCH 27.3 pg (25.7-33.7); MCHC 31.4 g/dl (32.0-35.9); MEAN CELL VOLUME 86.8 fl (80-96); MEAN PLT VOLUME 9.1 fl (7.5-11.1); PLATELET COUNT 277 10^3/uL (134-434); RBC 4.91 M/mm3 (4.00-5.60); RDW 16.1 % (11.9-15.9); WHITE BLOOD COUNT 8.8 K/mm3 (4.0-10.0)
[2021-04-27] MEDS ORDERED: NITROGLYCERIN SUBLINGUAL 1/150 0.4 MG TAB SL PRN (12:01)
[2021-04-27] MEDS: amLODIPine BESYLATE 5 MG TABLET (FP) PO SCH (12:33)
[2021-04-27] MEDS: ASPIRIN COATED 81 MG TABLET.EC PO SCH (12:33)
[2021-04-27 13:02] LABS: HIV INTERPRETATION NEGATIVE (NEGATIVE)
[2021-04-27 13:05] LABS: CALCIUM 8.8 mg/dL (8.5-10.1)
[2021-04-27 13:06] LABS: ALBUMIN 3.3 g/dl (3.4-5.0); BLOOD UREA NITROGEN 12.8 mg/dL (7-18)
[2021-04-27 13:07] LABS: CREATININE 1.4 mg/dL (0.55-1.3)
[2021-04-27] MEDS: SACUBITRIL/VALSARTAN 49 MG-51 MG TABLET PO SCH ×2 (13:07→22:05)
[2021-04-27] MEDS: CARVEDILOL 3.125 MG TABLET (FP) PO SCH ×2 (13:07→21:13)
[2021-04-27 13:08] LABS: TOT PROT 6.4 g/dl (6.4-8.2)
[2021-04-27 13:09] LABS: BILIRUBIN,TOTAL 0.7 mg/dL (0.2-1)
[2021-04-27] MEDS: MIRTAZAPINE 15 MG TABLET (FP) PO SCH (21:13)
[2021-04-27] MEDS: ATORVASTATIN CA 40 MG TABLET (FP) PO SCH (21:14)
[2021-04-27] MEDS: SUVOREXANT 10 MG TABLET PO PRN (21:15)
[2021-04-27] MEDS ORDERED: MELATONIN 5 MG TABLETS PO SCH (22:00)
[2021-04-27] MEDS: THIAMINE HCL 100 MG TABLET (FP) PO SCH (22:04)
[2021-04-28] MEDS: hydrOXYzine PAMOATE 25 MG CAPSULE (FP) PO SCH ×5 (06:30→21:22)
[2021-04-28] MEDS: FUROSEMIDE 40 MG TABLET (FP) PO SCH (06:30)
[2021-04-28] MEDS: PRENATAL VITAMINS W/ FOLIC ACID TABLET (FP) PO SCH (09:39)
[2021-04-28] MEDS: amLODIPine BESYLATE 5 MG TABLET (FP) PO SCH (09:40)
[2021-04-28] MEDS: CARVEDILOL 3.125 MG TABLET (FP) PO SCH ×2 (09:41→21:08)
[2021-04-28] MEDS: SACUBITRIL/VALSARTAN 49 MG-51 MG TABLET PO SCH ×2 (09:41→21:08)
[2021-04-28] MEDS: ASPIRIN COATED 81 MG TABLET.EC PO SCH (09:41)
[2021-04-28] MEDS: NICOTINE 14 MG/24 HOURS TOPICAL PATCH TD SCH (09:42)
[2021-04-28] MEDS: ALBUTEROL SO4 HFA INHALER IH PRN (12:29)
[2021-04-28] MEDS: TIOTROPIUM BROMIDE 2.5 MCG (SPIRIVA) RESPIMAT INHALER IH SCH (12:31)
[2021-04-28] MEDS: predniSONE 20 MG TABLET (UD) PO SCH (15:10)
[2021-04-28 17:11] LABS: URINE APPEARANCE CLEAR; URINE BILIRUBIN NEGATIVE (NEGATIVE); URINE COLOR YELLOW; URINE GLUCOSE (UA) TRACE (NEGATIVE); URINE KETONE NEGATIVE (NEGATIVE); URINE LEUK ESTERASE NEGATIVE (NEGATIVE); URINE NITRITE NEGATIVE (NEGATIVE); URINE PROTEIN NEGATIVE (NEGATIVE); URINE UROBILINOGEN 0.2 mg/dL (0.2-1.0)
[2021-04-28] MEDS: CYCLOBENZAPRINE HCL 10 MG TABLET (FP) PO PRN ×2 (17:34→22:16)
[2021-04-28] MEDS: ATORVASTATIN CA 40 MG TABLET (FP) PO SCH (21:08)
[2021-04-28] MEDS: MIRTAZAPINE 15 MG TABLET (FP) PO SCH (21:08)
[2021-04-28] MEDS: THIAMINE HCL 100 MG TABLET (FP) PO SCH (21:08)
[2021-04-28] MEDS: SUVOREXANT 10 MG TABLET PO PRN (21:09)
[2021-04-29] MEDS: hydrOXYzine PAMOATE 25 MG CAPSULE (FP) PO SCH ×5 (06:54→22:39)
[2021-04-29] MEDS: FUROSEMIDE 40 MG TABLET (FP) PO SCH (06:54)
[2021-04-29] MEDS: ASPIRIN COATED 81 MG TABLET.EC PO SCH (10:05)
[2021-04-29] MEDS: PRENATAL VITAMINS W/ FOLIC ACID TABLET (FP) PO SCH (10:05)
[2021-04-29] MEDS: SACUBITRIL/VALSARTAN 49 MG-51 MG TABLET PO SCH ×2 (10:06→21:06)
[2021-04-29] MEDS: TIOTROPIUM BROMIDE 2.5 MCG (SPIRIVA) RESPIMAT INHALER IH SCH (10:06)
[2021-04-29] MEDS: amLODIPine BESYLATE 5 MG TABLET (FP) PO SCH (10:06)
[2021-04-29] MEDS: NICOTINE 14 MG/24 HOURS TOPICAL PATCH TD SCH (10:06)
[2021-04-29] MEDS: CARVEDILOL 3.125 MG TABLET (FP) PO SCH ×2 (10:07→21:06)
[2021-04-29] MEDS: predniSONE 20 MG TABLET (UD) PO SCH (10:08)
[2021-04-29] MEDS: CYCLOBENZAPRINE HCL 10 MG TABLET (FP) PO PRN (14:17)
[2021-04-29] MEDS: MIRTAZAPINE 15 MG TABLET (FP) PO SCH (21:06)
[2021-04-29] MEDS: THIAMINE HCL 100 MG TABLET (FP) PO SCH (21:06)
[2021-04-29] MEDS: ATORVASTATIN CA 40 MG TABLET (FP) PO SCH (21:06)
[2021-04-29] MEDS: SUVOREXANT 10 MG TABLET PO PRN (21:08)
[2021-04-30] MEDS: hydrOXYzine PAMOATE 25 MG CAPSULE (FP) PO SCH ×5 (06:55→21:57)
[2021-04-30] MEDS: FUROSEMIDE 40 MG TABLET (FP) PO SCH (06:55)
[2021-04-30] MEDS: PRENATAL VITAMINS W/ FOLIC ACID TABLET (FP) PO SCH (09:39)
[2021-04-30] MEDS: CARVEDILOL 3.125 MG TABLET (FP) PO SCH ×2 (09:40→21:58)
[2021-04-30] MEDS: ASPIRIN COATED 81 MG TABLET.EC PO SCH (09:40)
[2021-04-30] MEDS: amLODIPine BESYLATE 5 MG TABLET (FP) PO SCH (09:40)
[2021-04-30] MEDS: NICOTINE 14 MG/24 HOURS TOPICAL PATCH TD SCH (09:40)
[2021-04-30] MEDS: TIOTROPIUM BROMIDE 2.5 MCG (SPIRIVA) RESPIMAT INHALER IH SCH (09:41)
[2021-04-30] MEDS: CYCLOBENZAPRINE HCL 10 MG TABLET (FP) PO PRN (09:42)
[2021-04-30] MEDS: predniSONE 20 MG TABLET (UD) PO SCH (09:42)
[2021-04-30] MEDS: SACUBITRIL/VALSARTAN 49 MG-51 MG TABLET PO SCH ×2 (09:42→21:57)
[2021-04-30] MEDS ORDERED: DOCUSATE SODIUM 100 MG CAPSULE (FP) PO ONE (15:16)
[2021-04-30] MEDS: DOCUSATE SODIUM 100 MG CAPSULE (FP) PO SCH (21:57)
[2021-04-30] MEDS: MIRTAZAPINE 15 MG TABLET (FP) PO SCH (21:58)
[2021-04-30] MEDS: ATORVASTATIN CA 40 MG TABLET (FP) PO SCH (21:58)
[2021-04-30] MEDS: THIAMINE HCL 100 MG TABLET (FP) PO SCH (21:58)
[2021-05-01] MEDS: CYCLOBENZAPRINE HCL 10 MG TABLET (FP) PO PRN ×2 (03:24→22:21)
[2021-05-01] MEDS: DOCUSATE SODIUM 100 MG CAPSULE (FP) PO SCH ×3 (06:31→22:18)
[2021-05-01] MEDS: hydrOXYzine PAMOATE 25 MG CAPSULE (FP) PO SCH ×5 (06:31→22:19)
[2021-05-01] MEDS: FUROSEMIDE 40 MG TABLET (FP) PO SCH (06:31)
[2021-05-01] MEDS: ASPIRIN COATED 81 MG TABLET.EC PO SCH (11:22)
[2021-05-01] MEDS: PRENATAL VITAMINS W/ FOLIC ACID TABLET (FP) PO SCH (11:22)
[2021-05-01] MEDS: amLODIPine BESYLATE 5 MG TABLET (FP) PO SCH (11:23)
[2021-05-01] MEDS: TIOTROPIUM BROMIDE 2.5 MCG (SPIRIVA) RESPIMAT INHALER IH SCH (11:24)
[2021-05-01] MEDS: NICOTINE 14 MG/24 HOURS TOPICAL PATCH TD SCH (11:24)
[2021-05-01] MEDS: CARVEDILOL 3.125 MG TABLET (FP) PO SCH ×2 (11:24→22:33)
[2021-05-01] MEDS: SACUBITRIL/VALSARTAN 49 MG-51 MG TABLET PO SCH ×2 (11:25→22:19)
[2021-05-01 16:11] LABS: SARS-CoV-2 NAA Not Detected (Not Detected)
[2021-05-01] MEDS: MIRTAZAPINE 15 MG TABLET (FP) PO SCH (22:18)
[2021-05-01] MEDS: ATORVASTATIN CA 40 MG TABLET (FP) PO SCH (22:19)
[2021-05-01] MEDS: THIAMINE HCL 100 MG TABLET (FP) PO SCH (22:19)
[2021-05-01] MEDS: ALBUTEROL SO4 HFA INHALER IH PRN (23:30)
[2021-05-02] MEDS: CYCLOBENZAPRINE HCL 10 MG TABLET (FP) PO PRN (01:20)
[2021-05-02] MEDS: hydrOXYzine PAMOATE 25 MG CAPSULE (FP) PO SCH ×5 (07:01→22:36)
[2021-05-02] MEDS: FUROSEMIDE 40 MG TABLET (FP) PO SCH (07:01)
[2021-05-02] MEDS: DOCUSATE SODIUM 100 MG CAPSULE (FP) PO SCH ×3 (07:01→21:08)
[2021-05-02] MEDS: PRENATAL VITAMINS W/ FOLIC ACID TABLET (FP) PO SCH (09:58)
[2021-05-02] MEDS: SACUBITRIL/VALSARTAN 49 MG-51 MG TABLET PO SCH ×2 (09:58→21:11)
[2021-05-02] MEDS: CARVEDILOL 3.125 MG TABLET (FP) PO SCH ×2 (09:58→21:11)
[2021-05-02] MEDS: TIOTROPIUM BROMIDE 2.5 MCG (SPIRIVA) RESPIMAT INHALER IH SCH (09:59)
[2021-05-02] MEDS: amLODIPine BESYLATE 5 MG TABLET (FP) PO SCH (10:00)
[2021-05-02] MEDS: NICOTINE 14 MG/24 HOURS TOPICAL PATCH TD SCH (10:00)
[2021-05-02] MEDS: ASPIRIN COATED 81 MG TABLET.EC PO SCH (11:30)
[2021-05-02] MEDS: THIAMINE HCL 100 MG TABLET (FP) PO SCH (21:09)
[2021-05-02] MEDS: MIRTAZAPINE 15 MG TABLET (FP) PO SCH (21:09)
[2021-05-02] MEDS: ATORVASTATIN CA 40 MG TABLET (FP) PO SCH (21:09)
[2021-05-02] MEDS: SUVOREXANT 15 MG TABLET PO PRN (21:09)
[2021-05-03] MEDS: FUROSEMIDE 40 MG TABLET (FP) PO SCH (07:12)
[2021-05-03] MEDS: DOCUSATE SODIUM 100 MG CAPSULE (FP) PO SCH ×3 (07:12→21:14)
[2021-05-03] MEDS: hydrOXYzine PAMOATE 25 MG CAPSULE (FP) PO SCH ×5 (07:12→21:14)
[2021-05-03] MEDS: PRENATAL VITAMINS W/ FOLIC ACID TABLET (FP) PO SCH (09:37)
[2021-05-03] MEDS: NICOTINE 14 MG/24 HOURS TOPICAL PATCH TD SCH (09:37)
[2021-05-03] MEDS: ASPIRIN COATED 81 MG TABLET.EC PO SCH (09:38)
[2021-05-03] MEDS: SACUBITRIL/VALSARTAN 49 MG-51 MG TABLET PO SCH ×2 (09:39→21:13)
[2021-05-03] MEDS: amLODIPine BESYLATE 5 MG TABLET (FP) PO SCH (09:39)
[2021-05-03] MEDS: CARVEDILOL 3.125 MG TABLET (FP) PO SCH ×2 (09:40→21:14)
[2021-05-03] MEDS: TIOTROPIUM BROMIDE 2.5 MCG (SPIRIVA) RESPIMAT INHALER IH SCH (09:40)
[2021-05-03] MEDS: MIRTAZAPINE 15 MG TABLET (FP) PO SCH (21:13)
[2021-05-03] MEDS: THIAMINE HCL 100 MG TABLET (FP) PO SCH (21:14)
[2021-05-03] MEDS: ATORVASTATIN CA 40 MG TABLET (FP) PO SCH (21:14)
[2021-05-03] MEDS: SUVOREXANT 15 MG TABLET PO PRN (21:17)
[2021-05-04] MEDS: hydrOXYzine PAMOATE 25 MG CAPSULE (FP) PO SCH ×5 (06:33→21:08)
[2021-05-04] MEDS: FUROSEMIDE 40 MG TABLET (FP) PO SCH (06:33)
[2021-05-04] MEDS: DOCUSATE SODIUM 100 MG CAPSULE (FP) PO SCH ×3 (06:33→21:08)
[2021-05-04] MEDS: PRENATAL VITAMINS W/ FOLIC ACID TABLET (FP) PO SCH (09:29)
[2021-05-04] MEDS: NICOTINE 14 MG/24 HOURS TOPICAL PATCH TD SCH (09:29)
[2021-05-04] MEDS: ASPIRIN COATED 81 MG TABLET.EC PO SCH (09:30)
[2021-05-04] MEDS: SACUBITRIL/VALSARTAN 49 MG-51 MG TABLET PO SCH ×2 (09:30→21:07)
[2021-05-04] MEDS: amLODIPine BESYLATE 5 MG TABLET (FP) PO SCH (09:30)
[2021-05-04] MEDS: CARVEDILOL 3.125 MG TABLET (FP) PO SCH ×2 (09:31→21:08)
[2021-05-04] MEDS: TIOTROPIUM BROMIDE 2.5 MCG (SPIRIVA) RESPIMAT INHALER IH SCH (09:31)
[2021-05-04] MEDS: ALBUTEROL SO4 HFA INHALER IH PRN (09:32)
[2021-05-04] MEDS: IBUPROFEN 400 MG TABLET (FP) PO PRN (13:46)
[2021-05-04] MEDS: MIRTAZAPINE 15 MG TABLET (FP) PO SCH (21:07)
[2021-05-04] MEDS: CYCLOBENZAPRINE HCL 10 MG TABLET (FP) PO PRN (21:08)
[2021-05-04] MEDS: ATORVASTATIN CA 40 MG TABLET (FP) PO SCH (21:08)
[2021-05-04] MEDS: THIAMINE HCL 100 MG TABLET (FP) PO SCH (21:08)
[2021-05-04] MEDS: SUVOREXANT 15 MG TABLET PO PRN (21:10)
[2021-05-05] MEDS: DOCUSATE SODIUM 100 MG CAPSULE (FP) PO SCH ×3 (06:44→21:11)
[2021-05-05] MEDS: FUROSEMIDE 40 MG TABLET (FP) PO SCH (06:44)
[2021-05-05] MEDS: hydrOXYzine PAMOATE 25 MG CAPSULE (FP) PO SCH ×5 (06:44→21:12)
[2021-05-05] MEDS: IBUPROFEN 400 MG TABLET (FP) PO PRN ×2 (06:45→21:29)
[2021-05-05] MEDS: CYCLOBENZAPRINE HCL 10 MG TABLET (FP) PO PRN (08:57)
[2021-05-05] MEDS: NICOTINE 14 MG/24 HOURS TOPICAL PATCH TD SCH (09:35)
[2021-05-05] MEDS: SACUBITRIL/VALSARTAN 49 MG-51 MG TABLET PO SCH ×2 (09:35→21:44)
[2021-05-05] MEDS: PRENATAL VITAMINS W/ FOLIC ACID TABLET (FP) PO SCH (09:35)
[2021-05-05] MEDS: amLODIPine BESYLATE 5 MG TABLET (FP) PO SCH (09:35)
[2021-05-05] MEDS: ASPIRIN COATED 81 MG TABLET.EC PO SCH (09:35)
[2021-05-05] MEDS: CARVEDILOL 3.125 MG TABLET (FP) PO SCH ×2 (09:36→21:11)
[2021-05-05] MEDS: TIOTROPIUM BROMIDE 2.5 MCG (SPIRIVA) RESPIMAT INHALER IH SCH (09:36)
[2021-05-05] MEDS: ALBUTEROL SO4 HFA INHALER IH PRN (09:38)
[2021-05-05] MEDS: MIRTAZAPINE 15 MG TABLET (FP) PO SCH (21:11)
[2021-05-05] MEDS: ATORVASTATIN CA 40 MG TABLET (FP) PO SCH (21:12)
[2021-05-05] MEDS: THIAMINE HCL 100 MG TABLET (FP) PO SCH (21:12)
[2021-05-05] MEDS: SUVOREXANT 15 MG TABLET PO PRN (21:15)
[2021-05-06] MEDS: hydrOXYzine PAMOATE 25 MG CAPSULE (FP) PO SCH ×5 (06:37→21:08)
[2021-05-06] MEDS: DOCUSATE SODIUM 100 MG CAPSULE (FP) PO SCH ×3 (06:37→21:06)
[2021-05-06] MEDS: FUROSEMIDE 40 MG TABLET (FP) PO SCH (06:37)
[2021-05-06] MEDS: NICOTINE 14 MG/24 HOURS TOPICAL PATCH TD SCH (09:41)
[2021-05-06] MEDS: amLODIPine BESYLATE 5 MG TABLET (FP) PO SCH (09:41)
[2021-05-06] MEDS: PRENATAL VITAMINS W/ FOLIC ACID TABLET (FP) PO SCH (09:41)
[2021-05-06] MEDS: ASPIRIN COATED 81 MG TABLET.EC PO SCH (09:42)
[2021-05-06] MEDS: CARVEDILOL 3.125 MG TABLET (FP) PO SCH ×2 (09:42→21:06)
[2021-05-06] MEDS: SACUBITRIL/VALSARTAN 49 MG-51 MG TABLET PO SCH ×2 (09:42→21:07)
[2021-05-06] MEDS: TIOTROPIUM BROMIDE 2.5 MCG (SPIRIVA) RESPIMAT INHALER IH SCH (09:43)
[2021-05-06] MEDS: IBUPROFEN 400 MG TABLET (FP) PO PRN ×2 (09:45→22:46)
[2021-05-06] MEDS: THIAMINE HCL 100 MG TABLET (FP) PO SCH (21:08)
[2021-05-06] MEDS: ATORVASTATIN CA 40 MG TABLET (FP) PO SCH (21:08)
[2021-05-06] MEDS: MIRTAZAPINE 15 MG TABLET (FP) PO SCH (21:08)
[2021-05-06] MEDS: SUVOREXANT 15 MG TABLET PO PRN (21:10)
[2021-05-06 21:57] VITALS: PULSE 88
[2021-05-07] MEDS: DOCUSATE SODIUM 100 MG CAPSULE (FP) PO SCH (06:30)
[2021-05-07] MEDS: FUROSEMIDE 40 MG TABLET (FP) PO SCH (06:31)
[2021-05-07] MEDS: hydrOXYzine PAMOATE 25 MG CAPSULE (FP) PO SCH ×2 (06:31→09:47)
[2021-05-07] MEDS: IBUPROFEN 400 MG TABLET (FP) PO PRN (06:33)
[2021-05-07 07:06] VITALS: BP 104/69; TEMP 97.5
[2021-05-07] MEDS: ASPIRIN COATED 81 MG TABLET.EC PO SCH (09:45)
[2021-05-07] MEDS: amLODIPine BESYLATE 5 MG TABLET (FP) PO SCH (09:46)
[2021-05-07] MEDS: NICOTINE 14 MG/24 HOURS TOPICAL PATCH TD SCH (09:46)
[2021-05-07] MEDS: SACUBITRIL/VALSARTAN 49 MG-51 MG TABLET PO SCH (09:46)
[2021-05-07] MEDS: CARVEDILOL 3.125 MG TABLET (FP) PO SCH (09:46)
[2021-05-07] MEDS: PRENATAL VITAMINS W/ FOLIC ACID TABLET (FP) PO SCH (09:47)
[2021-05-07] MEDS: TIOTROPIUM BROMIDE 2.5 MCG (SPIRIVA) RESPIMAT INHALER IH SCH (09:47)
[2021-05-07] MEDS: CYCLOBENZAPRINE HCL 10 MG TABLET (FP) PO PRN (09:49)
== END 2021-05-07 10:00 | disposition home or self-care (01) | DRG 772 ==
LOC: YASAS 15:42 → Y5N 04-27 02:43
PROVIDERS: ADMIT Allergy & Immunology; ATTEND Allergy & Immunology
PROC: HZ42ZZZ Group Counseling for Substance Abuse Treatment, Cognitive-Behavioral (ICD-10-PCS; principal; 2021-04-27)
DX: F10.20 Alcohol dependence, uncomplicated (principal); F14.20 Cocaine dependence, uncomplicated; F19.282 Other psychoactive substance dependence with psychoactive substance-induced sleep disorder; F19.24 Other psychoactive substance dependence with psychoactive substance-induced mood disorder; F41.8 Other specified anxiety disorders; F41.0 Panic disorder [episodic paroxysmal anxiety]; F32.A Depression, unspecified; E78.5 Hyperlipidemia, unspecified; G47.00 Insomnia, unspecified; I25.10 Atherosclerotic heart disease of native coronary artery without angina pectoris; I11.0 Hypertensive heart disease with heart failure; I50.9 Heart failure, unspecified; I25.2 Old myocardial infarction; J43.9 Emphysema, unspecified; Z95.5 Presence of coronary angioplasty implant and graft; M54.89 Other dorsalgia; G89.29 Other chronic pain; Z87.01 Personal history of pneumonia (recurrent); Z87.891 Personal history of nicotine dependence
CPT/HCPCS: 36415; 71046-TC-FY; 80053; 81003; 82962; 85027; 86780; 87389; 93005; 93010; C9803; U0003; U0005